=== PATIENT | male | born 1960 | race Caucasian/White ===

== ENCOUNTER 2016-05-25 18:28 | Inpatient (IN) | payer BC ==
[~2016-05-25] VITALS: Ht 188 cm; Wt 110.7 kg
[~2016-05-25 18:28] MED LIST: ACET650T12 PO; ALLO300T2 PO; ASPI1TAB PO; CIPR500T89 PO; FINA5TAB2 PO; FLAG500T PO; LISI10TA4 PO; LISI5TAB PO; MOM30SS PO; MYFO360T PO; PRED5TA PO; PRED5TAB PO; PROG1CAP2 PO; SENO8.6T10 PO; TACR05CAP PO; ULTR50TA PO; XANA0.25 PO; ZOFR20TA PO; ZYLO300T4 PO
[2016-05-25 19:13] LABS: BASO % 0.3 % (0.0-1.0); EOS # 0.2 K/mm3 (0.0-0.50); EOS % 2.4 % (0.0-3.0); LARGE UNSTAINED CELL # 0.3 K/mm3 (0.0-0.4); LARGE UNSTAINED CELL % 2.7 % (0.0-4.0); LYMPH # 3.3 K/mm3 (1.5-4.5); LYMPH % 32.6 % (24.0-44.0); MEAN CORPUSCULAR HEMOGLOBIN 31.7 pg (27.0-33.0); MEAN CORPUSCULAR HGB CONC 34.3 g/dl (32.0-36.5); MEAN CORPUSCULAR VOLUME 92.6 fl (80.0-96.0); MONO # 0.7 K/mm3 (0.0-0.8); MONO % 6.6 % (0.0-5.0); NEUTROPHILS # 5.6 K/mm3 (1.8-7.7); NEUTROPHILS % 55.5 % (36.0-66.0); PLATELET COUNT, AUTOMATED 199 k/mm3 (150-450); RED CELL DISTRIBUTION WIDTH 14.8 % (11.5-14.5)
--- NOTE | 2016-05-25 19:21 | REP ---
PORTABLE CHEST: 05/25/2016 at 06:48 PM: Clinical history: Chest pain. Comparison: 02/24/2011, 07/14/2010 chest x-ray. Findings. Lungs are well inflated. CP angles sharply defined. There is no effusion, infiltrate, atelectasis or mass. Heart not grossly enlarged for portable technique. There is no vascular redistribution or pulmonary edema. Some minor basilar fibrotic changes seen, but stable. No widening of the mediastinum. Airway intact. The aorta normal. Bones show some degenerative changes AC joints. Plate and screw fixation from previous anterior cervical fusion, stable. Impression: 1. No acute cardiopulmonary disease, stable chest. Signed by Morris Whittaker MD 05/25/2016 08:19 P
[2016-05-25 19:46] LABS: INR 0.99
[2016-05-25 19:48] LABS: ALBUMIN 4.1 GM/DL (3.2-5.2); ALBUMIN/GLOBULIN RATIO 1.24 (1.00-1.93); ALKALINE PHOSPHATASE 58 U/L (45-117); ALT/SGPT 29 U/L (12-78); AMYLASE 96 U/L (25-115); AST/SGOT 16 U/L (15-37); BILIRUBIN,DIRECT 0.1 MG/DL (0.0-0.2); BILIRUBIN,TOTAL 0.5 MG/DL (0.2-1.0); BLOOD UREA NITROGEN 59 MG/DL (7-18); CREATININE FOR GFR 1.77 MG/DL (0.70-1.30); GLOMERULAR FILTRATION RATE 42.9 (>56); GLUCOSE, FASTING 109 MG/DL (70-105); TOTAL PROTEIN 7.4 GM/DL (6.4-8.2)
[2016-05-25 19:59] LABS: ANION GAP 8 MEQ/L (8-16); CALCIUM LEVEL 9.6 MG/DL (8.5-10.1); CARBON DIOXIDE LEVEL 18 MEQ/L (21-32); CHLORIDE LEVEL 109 MEQ/L (98-107); SODIUM LEVEL 135 MEQ/L (136-145)
[2016-05-25 20:00] LABS: POTASSIUM SERUM 6.2 MEQ/L (3.5-5.1)
[2016-05-25 20:04] LABS: VENOUS BASE EXCESS -9.1 (-2.0-2.0); VENOUS O2 SATURATION 99.8 % (60.0-80.0); VENOUS PARTIAL PRESSURE CO2 30.9 mmHg (38.0-50.0); VENOUS PARTIAL PRESSURE O2 254.1 mmHg (30.0-50.0); VENOUS STANDARD HCO3 17.4 MEQ/L; VENOUS TOTAL CO2 16.6 MEQ/L (24.0-28.0)
--- NOTE | 2016-05-25 21:31 | ECGEPIP ---
Stationary ECG Study [facility] - ED Test Date: 2016-05-25 Pat Name: JADA LORENZANA Department: Room: - Gender: M [employer]: damon : 1960 Requested By: Kristy Mccarty Order Number: [id number] Reading MD: Maury Jeong Measurements Intervals [place] Rate: 91 P: 51 PA: 204 QRS: -10 QRSD: 128 T: 61 QT: 338 QTc: 417 Interpretive Statements SINUS RHYTHM WITH 1ST DEGREE AV BLOCK INC. LBBB Electronically Signed On 05-25-2016 21:30:36 EST by Maury Jeong
[2016-05-25] MEDS ORDERED: SOD POLYSTYRENE SULFONATE SUSP 15 GM/60 ML UD As Ordered ONE (21:53)
--- NOTE | 2016-05-25 23:00 | REPUSA ---
CT of the abdomen and pelvis without contrast Clinical statement: acute renal failure. Technique: Multiple axial CT images were obtained from the base of the lungs to the floor of the pelv is utilizing 5 mm axial slices after administration of oral contrast. Coronal and sagittal reconstruc tions were also obtained. Comparison: 04/20/2016. Findings: Chest: The visualized lung bases are clear. Abdomen: The kidneys are absent bilaterally. Surgical clips are seen throughout the retroperitoneum a nd appear stable. The liver, spleen, pancreas, gallbladder and adrenal glands are unremarkable. The a nagi demonstrates normal caliber and contour. There is no abdominal lymphadenopathy or ascites. Pelvis: The transplant kidney in the right lower quadrant appears unremarkable. There is no evidence of hydronephrosis or nephrolithiasis. A right-sided ostomy is noted, with herniating loops of bowel. There is no evidence of incarceration. The bowel is otherwise unremarkable, with no obstructive or in flammatory changes. The urinary bladder is within normal limits. There is no pelvic lymphadenopathy o r ascites. The other pelvic structures appear unremarkable. Bones: There are no suspicious osseous abnormalities seen. Impression: 1. The transplant kidney in the right lower quadrant appears unremarkable. 2. No obstructive or inflammatory bowel changes. 3. Overall, no significant interval change.
[2016-05-26] MEDS ORDERED: TACROLIMUS 1 MG CAP (J7507) PO ONE (01:45)
[2016-05-26] MEDS ORDERED: MYCOPHENOLATE MOFETIL 250 MG CAP (J7517) PO ONE (02:00)
[2016-05-26] MEDS: NS 1,000 ML IV SCH ×3 (02:53→10:53)
[2016-05-26] MEDS ORDERED: ONDANSETRON 4MG/2ML VIAL (J2405) IV PRN (03:00)
[2016-05-26] MEDS ORDERED: ACETAMINOPHEN TAB 650MG DOSE (2X325MG) PO PRN (03:00)
[2016-05-26] MEDS ORDERED: methylPREDNISolone INJ 125 MG/2 ML VIAL (J2930) IV SCH (04:00)
[2016-05-26 04:33] LABS: BASO % 0.3 % (0.0-1.0); EOS # 0.3 K/mm3 (0.0-0.50); EOS % 3.9 % (0.0-3.0); LARGE UNSTAINED CELL # 0.2 K/mm3 (0.0-0.4); LARGE UNSTAINED CELL % 2.7 % (0.0-4.0); LYMPH # 2.5 K/mm3 (1.5-4.5); MEAN CORPUSCULAR HEMOGLOBIN 32.3 pg (27.0-33.0); MEAN CORPUSCULAR HGB CONC 34.8 g/dl (32.0-36.5); MEAN CORPUSCULAR VOLUME 92.7 fl (80.0-96.0); MONO # 0.6 K/mm3 (0.0-0.8); NEUTROPHILS # 3.4 K/mm3 (1.8-7.7); NEUTROPHILS % 49.2 % (36.0-66.0); PLATELET COUNT, AUTOMATED 135 k/mm3 (150-450); RED CELL DISTRIBUTION WIDTH 14.9 % (11.5-14.5); WHITE BLOOD COUNT 6.9 K/mm3 (4.0-10.0)
[2016-05-26 05:06] LABS: ALBUMIN 3.3 GM/DL (3.2-5.2); CALCIUM LEVEL 8.5 MG/DL (8.5-10.1); CREATININE FOR GFR 1.42 MG/DL (0.70-1.30); GLOMERULAR FILTRATION RATE 55.3 (>56); MAGNESIUM LEVEL 1.8 MG/DL (1.8-2.4)
[2016-05-26 05:10] LABS: POTASSIUM SERUM 5.3 MEQ/L (3.5-5.1)
[2016-05-26] MEDS: methylPREDNISolone INJ 125 MG/2 ML VIAL (J2930) IV SCH ×2 (06:00→16:54)
[2016-05-26] MEDS ORDERED: methylPREDNISolone INJ 40 MG/1 ML VIAL (J2920) As Ordered ONE (06:25)
--- NOTE | 2016-05-26 07:26 | HPE ---
DATE OF ADMISSION: 05/26/2016 Mr. Herrera is a patient of Dr. Mortensen. His acrobatic dancer is at [facility], as well as, his general surgeon. CHIEF COMPLAINT: "My arms have been aching and I have chest pressure". SUMMARY OF PRESENTATION: This is a 55-year-old who has been feeling unwell for a couple of weeks. He has not been sleeping very well. He has been very thirsty. He has lots of output from his ostomy bag and he did have the ostomy placed 02/18/2016 which was a planned procedure due to his recurrent diverticulitis. He has planned to have that reversed within the next week. He had a prolonged hospitalization at that point with a creatinine that got as high as 1.8. He was hospitalized again for five weeks. Over the last few weeks, he has been drinking at least a gallon of water a day. He has been having high ostomy output. Initially was having equivalent urine output and ostomy output, but since his ostomy output has certainly outpaced his urine output. He began to get cramping and aching in his arms and he thought it might be related to elevated potassium and he developed chest discomfort that was radiating to both arms today. He came to the emergency department for evaluation and was found to have acute renal failure in the setting of transplanted kidney and elevated potassium. Transfer was attempted to the transplant center, but he was declined as they had no beds and it seems that his findings are related to increased ostomy output most likely. I was asked to admit the patient for IV hydration and further workup. PAST MEDICAL HISTORY (Notable for): 1. Polycystic kidney disease status post renal transplant in 2006, currently on steroids, Prograf and mycophenolate. 2. History of diverticulitis. 3. Hypertension. 4. Gout. PAST SURGICAL HISTORY (Notable for): 1. Ear tubes. 2. Right hip pinning for slipped capital femoral epiphysis as a teenager. 3. AV fistulas in both arms and has a stent in his left arm fistula. 4. Kidney transplant for polycystic kidney disease. FAMILY HISTORY: Notable for a father with polycystic kidney disease. 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 He lives with his significant other. Nonsmoker. Does not drink alcohol. ALLERGIES (Listed to): - RABBIT EPITHELIUM - SULFA DRUGS MEDICATIONS AT HOME (Listed as): - allopurinol 300 mg by mouth daily - lisinopril 10 mg by mouth daily - aspirin 81 mg by mouth three times weekly - finasteride 5 mg by mouth daily - mycophenolate sodium 360 mg by mouth twice a day - prednisone 5 mg by mouth daily - Tacrolimus 1 mg capsule 3 mg by mouth twice a day REVIEW OF SYSTEMS: Notable for no headache. No visual changes. No runny nose. No neck pain. No cough. No shortness of breath. He is not having abdominal pain, but he is having large quantities of ostomy output. He has no change in urinary output apart from decreasing volume. Otherwise unremarkable. PHYSICAL EXAMINATION: Blood pressure 102/48. Pulse 98. Respiratory rate 18. Temperature 96.7. Pulse oximetry 99% on room air. Weighs 102.97 kg. Body mass index of 29. He is awake, appropriately interactive, seems anxious. Head is normocephalic. Sinuses nontender. Pupils equal round and reactive. He is wearing corrective lenses. Nasal septum is midline. Mucous membranes are tacky. Neck is supple. Breathing is symmetrical, rested. I:E ratio is 1:3. Heart is in a regular rate and rhythm. No tachycardic. Normal S1, S2. Abdomen is soft with hyperactive bowel sounds. There is a right sided colostomy bag filled with greenish liquid. There is a huge surgical scar across both lower quadrants of the abdomen which is well healed. There is no significant lower extremity edema. He is moving all four extremities. Cranial nerves II-XII are grossly intact. He has normal mood and affect. Sodium is 135, potassium 6.2, chloride 109, carbon dioxide 18, BUN 59, creatinine 1.77, glucose 109. Troponin I less than 0.02. Lipase 501. White cell count 10, hemoglobin 14, and platelets 199. INR is 0.99. He has pH 7.32, pCO2 31, pO2 254, bicarb 15.6. Urinalysis (UA) is remarkably unremarkable. Urine culture is pending. Abdominal and pelvic CT is notable for unremarkable transplant kidney in the right lower quadrant. No obstructive or inflammatory bowel changes. No significant interval change. Chest x-ray shows no acute process. ASSESSMENT: This is a 55-year-old with high output ostomy resulting in acute renal failure in the setting of a transplant kidney. The patient will require a two midnight hospital stay for further workup and treatment. PLAN: 1. Acute renal failure. The patient will be continued on his transplant rejection drugs. He will be aggressively fluid hydrated. Given that he has had low blood pressures, will be given increased steroids in the current setting. Dr. Booth will be consulted this morning as deemed clinically necessary by the family medicine team. Will withhold his lisinopril and allopurinol in the current setting. I have elected to continue aspirin. 2. The patient has high output ostomy and does not drink well water and has not been out to eat recently and has no recent history of travel. Will send stool studies on the ostomy output and then would consider Imodium or similar. He has not taken any medication like that to decrease his ostomy output. 3. The patient has a transplant kidney. He will be continued on mycophenolate. We do not carry his home brand of mycophenolate. He will have someone bring that in. Currently we are giving mycophenolate mofetil instead of sodium while we await his home medication. Will continue his Prograf and again give him bonus steroids. 4. Deep vein thrombosis (DVT) prophylaxis will be heparin subcutaneous. 5. The patient has an abnormal EKG which has peaked T waves when compared to previous, likely related to his hyperkalemia. Will repeat labs and continue the patient on telemetry. This should likely improve with improving hydration and urinary output. I am hesitant to give the patient Kayexalate to worsen his GI output.
[2016-05-26 08:18] VITALS: BP 131/62
[2016-05-26] MEDS ORDERED: HEPARIN SOD (PORCINE) 5000 UNITS/ML VIAL As Ordered ONE (08:48)
[2016-05-26] MEDS: FINASTERIDE 5 MG TAB PO SCH (08:55)
[2016-05-26] MEDS: TACROLIMUS 1 MG CAP (J7507) PO SCH ×2 (08:55→20:46)
[2016-05-26] MEDS: HEPARIN SOD (PORCINE) 5000 UNITS/ML VIAL SC SCH ×2 (08:56→20:47)
[2016-05-26] MEDS ORDERED: ASPIRIN 81 MG ENTERIC TAB PO SCH (09:00)
[2016-05-26] MEDS ORDERED: MYCOPHENOLATE MOFETIL 250 MG CAP (J7517) PO SCH (09:00)
[2016-05-26] MEDS ORDERED: MIRALAX *UNIT DOSE* 17GM PACKET PO SCH (09:00)
[2016-05-26 12:00] VITALS: BP 153/77
--- NOTE | 2016-05-26 12:34 | EDDOCDS ---
Nurse's Notes [facility] Name: Jada Lorenzana Age: 55 yrs Sex: Male : 1960 Arrival Date: 05/25/2016 Time: 18:28 Bed Admit Hold Private MD: Pepe Mortensen MD Diagnosis: Acute kidney failure;Kidney transplant status Presentation: 05/25 18:35 Presenting complaint: Patient states: Chest pain began two hours ago radiating to mlb1 bilateral arms. Aspirin was not taken prior to arrival. Adult Sepsis Screening: The patient does not have new or worsening altered mentation. Patient's respiratory rate is less than 22. Systolic blood pressure is greater than 100. Patient has a qSOFA score of 0- Negative Sepsis Screen. Suicide/Homicide risk assessment- the patient denies having any suicidal and/or homicidal ideations and does not present with any other emotional, behavioral or mental health complaints. 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 Transition of care: patient was not received from another setting of care. 18:35 Acuity: LEVON Level 2 mlb1 18:35 Method Of Arrival: Walkin/Carried/Asstd mlb1 Triage Assessment: 18:39 General: Appears in no apparent distress, Behavior is appropriate for age, cooperative. mlb1 Pain: Location: mid-sternal area Pain At worst was 5 out of 10 on a pain scale. Pain radiates to right arm and left arm. HIV screening NA for this visit Offered previously. Respiratory: No deficits noted. 05/26 05:01 Cardiovascular: Chest pain is described as vague, radiates episodes are intermittent cf2 began 30 minutes prior to arrival Historical: - Allergies: SULFA (SULFONAMIDES) (Hives); - Home Meds: 1. allopurinol 300 mg Oral tab once daily 2. aspirin 81 mg Oral chew 1 tab mon, wed,fri 3. finasteride 5 mg oral tab 1 tab once daily 4. lisinopril 10 mg Oral tab 1 tab once daily 5. Myfortic 360 mg oral TbEC 2 times per day 6. prednisone 5 mg Oral tab 1 tab once daily 7. Prograf 1 mg oral cap 3 cap daily 8. Zofran (as hydrochloride) 4 mg Oral tab - PMHx: Polycystic Kidney Disease; Renal Failure w/o Dialysis; Diverticulitis; - PSHx: Kidney Transplant- Right; Colostomy Construction; - Social history: Smoking status: Patient states was never smoker of tobacco. No barriers to communication noted, The patient speaks fluent Chinese, Speaks appropriately for age. - Family history: Not pertinent. - : The pt / caregiver states he / she is not on anticoagulants. Home medication list is obtained from the patient. - Exposure Risk Screening:: None identified. Screenin/19 19:01 Screening information is obtained from the patient. Fall risk: No risks identified. cf2 Assistance ADL's: requires no assistance with activities of daily living. Abuse/DV Screen: The patient / caregiver reports he/she is: not in a situation that causes fear, pain or injury. Nutritional screening: No deficits noted. Advance Directives: Further advance directive information is declined. home support is adequate. Assessment: 19:01 Adult Sepsis Screening: The patient does not have new or worsening altered mentation. cf2 Patient's respiratory rate is less than 22. Systolic blood pressure is greater than 100. Patient has a qSOFA score of 0- Negative Sepsis Screen. General: Appears in no apparent distress, comfortable, Behavior is appropriate for age, cooperative. Pain: Denies pain. Neurological: No deficits noted. EENT: No deficits noted. Cardiovascular: Rhythm is sinus rhythm No ectopy. Respiratory: No deficits noted. GI: No deficits noted. Abdomen is flat, non- distended colostomy. : No deficits noted. Derm: No deficits noted. Musculoskeletal: No deficits noted. 19:07 Reassessment: Patient denies pain at this time. cf2 21:00 Reassessment: Patient denies pain at this time. cf2 23:00 General: Patient resting comfortably. Offers no complaints at present time. MD spoke cf2 with patient in regards to decreased kidney function. Patient with significant other crying, Patient requests that transplant team be called and made aware of condition. MD agrees to call transplant team.. 05/26 01:00 General: Patient resting comfortably offers no complaints at present time . cf2 03:00 General: Patient with hospitalist. [place] with no beds at present time. Offers no cf2 complaints. Eating dinner tray. 05:05 General: Unable to get bed assignment. Patient moved to room 17 and made comfortable. cf2 Offers no complaints at present time . 07:19 General: Appears in no apparent distress, comfortable, Behavior is appropriate for age, pml cooperative. Pain: Denies pain. Neurological: Level of Consciousness is awake, alert, Oriented to person, place, time. Cardiovascular: Capillary refill < 3 seconds Rhythm is sinus rhythm No ectopy. Respiratory: Airway is patent Respiratory effort is even, unlabored, Respiratory pattern is regular, symmetrical. Derm: Skin is pink, warm & dry. Vital Signs: 05/25 18:30 BP 102 / 48; Pulse 98; Resp 18 S; Temp 96.7(O); Pulse Ox 99% on R/A; Weight 102.97 kg gr2 (R); Height 6 ft. 2 in. (187.96 cm) (R); Pain 6/10; 19:07 Pulse 86 MON; Pulse Ox 98% ; cf2 19:07 BP 91 / 52 (auto/); cf2 19:07 Temp 98.0; Pain 0/10; cf2 19:15 Pulse 91 MON; Pulse Ox 98% ; cf2 19:15 BP 84 / 49 (auto/); cf2 19:26 Pulse 84 MON; Pulse Ox 99% ; cf2 19:26 BP 95 / 48 (auto/); cf2 19:30 Pulse 84 MON; Pulse Ox 99% ; cf2 19:30 BP 90 / 53 (auto/); cf2 19:45 Pulse 88 MON; Pulse Ox 99% ; cf2 19:45 BP 116 / 56 (auto/); cf2 20:00 Pulse 85 MON; Pulse Ox 99% ; cf2 20:00 BP 116 / 54 (auto/); cf2 20:15 Pulse 83 MON; Pulse Ox 97% ; cf2 20:15 BP 117 / 57 (auto/); cf2 20:30 Pulse 80 MON; Pulse Ox 99% ; cf2 20:30 BP 121 / 58 (auto/); cf2 20:45 Pulse 84 MON; Pulse Ox 98% ; cf2 20:45 BP 114 / 56 (auto/); cf2 21:00 Pulse 85 MON; Pulse Ox 98% ; cf2 21:00 BP 207 / 91 (auto/); cf2 21:15 Pulse 87 MON; Pulse Ox 98% ; cf2 21:15 BP 140 / 62 (auto/); cf2 21:30 Pulse 92 MON; Pulse Ox 98% ; cf2 21:30 BP 196 / 112 (auto/); cf2 21:45 Pulse 89 MON; Pulse Ox 96% ; cf2 21:45 BP 148 / 64 (auto/); cf2 22:00 Pulse 91 MON; Pulse Ox 98% ; cf2 22:00 BP 102 / 58 (auto/); cf2 22:15 Pulse 83 MON; Pulse Ox 98% ; cf2 22:15 BP 103 / 55 (auto/); cf2 22:38 Pulse 88 MON; Pulse Ox 98% ; cf2 22:38 BP 127 / 60 (auto/); cf2 22:39 Pulse 86 MON; Pulse Ox 98% ; cf2 22:39 BP 115 / 55 (auto/); cf2 22:45 Pulse 85 MON; Pulse Ox 98% ; cf2 22:45 BP 112 / 57 (auto/); cf2 23:39 Pulse 88 MON; Pulse Ox 98% ; cf2 23:39 BP 121 / 56 (auto/); cf2 05/26 00:03 Pulse 91 MON; cf2 00:03 BP 138 / 61 (auto/); cf2 00:04 Pulse 87 MON; Pulse Ox 99% ; cf2 00:26 Pulse 87 MON; Pulse Ox 98% ; cf2 00:30 Pulse 88 MON; cf2 00:30 BP 129 / 78 (auto/); cf2 01:00 Pulse 88 MON; cf2 01:00 BP 135 / 63 (auto/); cf2 01:30 Pulse 90 MON; Pulse Ox 99% ; cf2 01:30 BP 145 / 67 (auto/); cf2 02:00 Pulse 91 MON; cf2 02:00 BP 127 / 57 (auto/); cf2 02:30 Pulse 90 MON; cf2 02:30 BP 111 / 53 (auto/); cf2 03:00 Pulse 97 MON; cf2 03:00 BP 197 / 102 (auto/); cf2 04:00 Pulse 88 MON; cf2 04:00 BP 113 / 54 (auto/); cf2 05:20 Pulse 84 MON; Pulse Ox 98% ; cf2 07:18 Pulse 90 MON; Pulse Ox 98% ; pml 07:18 BP 135 / 72 (auto/); pml 05/25 18:30 Body Mass Index 29.14 (102.97 kg, 187.96 cm) gr2 Vitals: 05/25 18:30 Log In Time: May 25, 2016 at 18:30. gr2 18:32 RN notified that patient meets Red Flag criteria. gr2 ED Course: 18:30 Patient visited by Laith Posadas. gr2 18:30 Pepe Mortensen is Private Physician. gr2 18:30 Patient moved to Waiting gr2 18:31 Patient visited by Laith Posadas. gr2 18:32 Patient visited by Laith Posadas. gr2 18:32 Patient moved to Pre RCE gr2 18:32 Patient moved to PD2 / 27 ead 18:34 Anne Posadas, RN is Primary Nurse. gr2 18:34 Patient moved to 2 gr2 18:36 Triage Initiated mlb1 19:01 Basic Metabolic Profile Sent. kc3 19:01 CBC with Diff Sent. kc3 19:01 Cardiac Injury Profile Sent. kc3 19:01 Troponin Sent. kc3 19:01 EKG done. (by ED staff). Reviewed by Whitney ROOT. jrd 19:01 Inserted saline lock: 18 gauge in right antecubital area and blood collected. No cf2 procedures done that require assistance. 19:02 Patient visited by Coy Rosales PCA. jrd 19:03 Felton Franklin DO is Attending Physician. mm11 19:03 Patient visited by Felton Franklin DO. mm11 19:17 Primary Nurse role handed off by Anne Posadas, SARAH cf2 19:17 Tiffanie Jurado,SARAH is Primary Nurse. cf2 19:17 Patient visited by Tiffanie Jurado,SARAH. cf2 19:30 Venous Blood Gas (large pea green tube on ice) Sent. cf2 19:30 Lactic Acid (Jim tube on ice) Sent. cf2 19:32 Patient visited by Felton Franklin DO. mm11 20:02 The patient / caregiver is instructed regarding the plan of care and ED course. Patient sls1 has correct armband on for positive identification. Placed in gown. Bed in low position. Call light in reach. Side rails up X2. core sticker on. Pulse ox on. NIBP on. Notified attending ED physician of Critical lab value. 20:05 portable chest Returned. EDMS 20:28 Patient visited by Tiffanie Jurado,SARAH. cf2 20:31 Patient visited by Tiffanie Jurado RN. cf2 21:04 portable chest Returned. EDMS 21:17 Patient visited by Tiffanie Jurado RN. cf2 21:17 Patient visited by Tiffanie Jurado RN. cf2 21:40 Patient visited by Tiffanie Jurado RN. cf2 21:59 EKG-ADULT Returned. EDMS 22:09 Patient visited by Tiffanie Jurado RN. cf2 22:34 Patient visited by Tiffanie Jurado RN. cf2 23:06 CT ABD & PELVIS: No Contrast Returned. EDMS 23:10 Patient visited by Barbra Shah,RT. dk 05/26 00:04 Patient visited by Tiffanie Jurado RN. cf2 00:48 [facility] Payment Agreement was scanned into milog and attached to record. [facility] 01:01 Naseem Baker MD is Hospitalizing Provider. mm11 02:53 Patient visited by Tiffanie Jurado RN. cf2 02:53 Written Provider Order was scanned into milog and attached to record. tmm1 04:03 Patient moved to Admit Hold tmm1 04:26 Patient visited by Tiffanie Jurado RN. cf2 04:45 Patient moved to 17 sls1 04:45 Patient moved to Admit Hold sls1 04:56 Patient visited by Tiffanie Jurado RN. cf2 05:23 Patient visited by Tiffanie Jurado RN. cf2 07:20 Patient visited by Anne Flynn RN. pml 07:22 EKG done. (by ED staff). jrd 07:29 Patient visited by Coy Rosales PCA. jrd 07:43 Patient visited by Coy Rosales PCA. jrd 07:58 Patient moved to 20 rn1 08:59 Patient moved to Admit Hold dy 09:15 T-Sheet-- Draft Copy was scanned into milog and attached to record. gb Administered Medications: 05/25 19:30 Drug: LR 1000 ml [lactated ringers intravenous solution] Route: IV; Rate: bolus; Site: cf2 left antecubital; 20:10 Drug: NS 0.9% 1000 ml [sodium chloride 0.9 % intravenous solution] Route: IV; Rate: cf2 bolus; Site: left antecubital; 21:45 Drug: NS 0.9% 1000 ml [sodium chloride 0.9 % intravenous solution] Route: IV; Rate: cf2 bolus; Site: left antecubital; 21:45 Drug: Polystyrene 15 grams [sodium polystyrene sulfonate 15 gram/60 mL oral suspension cf2 (1200 drps)] Route: PO; 23:41 Drug: NS 0.9% 1000 ml [sodium chloride 0.9 % intravenous solution] Route: IV; Rate: sls1 bolus; Site: left antecubital; 05/26 02:53 Drug: Prograf 3 mg Route: PO; cf2 02:53 Drug: Myfortic Delayed Release Tablet 360 mg Route: PO; cf2 02:54 Drug: NS 0.9% 1000 ml [sodium chloride 0.9 % intravenous solution] Route: IV; Rate: 250 cf2 mL/hr; Site: left antecubital; Intake: 07:27 From [facility] Output: 00:17 Urine: 400.00ml (Voided); Stool: 300 (Loose Stool) ; Total: 400.00ml. sls1 07:27 Urine: 420.00ml (Voided); Stool: 420.00ml (Loose Stool); Total: 1240.00ml. jrd 07:27 From [facility] rust Order Results: Lab Order: Basic Metabolic Profile; SPEC'M 05/25/16 18:57 Test: GLUCOSE, FASTING; Value: 109; Range: 70-105; Abnormal: Above high normal; Units: MG/DL; Status: F Test: BLOOD UREA NITROGEN; Value: 59; Range: 7-18; Abnormal: Above high normal; Units: MG/DL; Status: F Test: CREATININE FOR GFR; Value: 1.77; Range: 0.70-1.30; Abnormal: Above high normal; Units: MG/DL; Status: F Test: GLOMERULAR FILTRATION RATE; Value: 42.9; Range: >56; Abnormal: Below low normal; Status: F Test: SODIUM LEVEL; Value: 135; Range: 136-145; Abnormal: Below low normal; Units: MEQ/L; Status: F Test: POTASSIUM SERUM; Value: 6.2; Range: 3.5-5.1; Abnormal: Above upper panic limits; Units: MEQ/L; Status: F Test: CHLORIDE LEVEL; Value: 109; Range: 98-107; Abnormal: Above high normal; Units: MEQ/L; Status: F Test: CARBON DIOXIDE LEVEL; Value: 18; Range: 21-32; Abnormal: Below low normal; Units: MEQ/L; Status: F Test: ANION GAP; Value: 8; Range: 8-16; Units: MEQ/L; Status: F Test: CALCIUM LEVEL; Value: 9.6; Range: 8.5-10.1; Units: MG/DL; Status: F Test Note: ; Units are mL/min/1.73 m2 Chronic Kidney Disease Staging per NKF: Stage I & II GFR >=60 Normal to Mildly Decreased Stage III GFR 30-59 Moderately Decreased Stage IV GFR 15-29 Severely Decreased Stage V GFR <15 Very Little GFR Left ESRD GFR <15 on LOGISTICS LEAD Lab Order: CBC with Diff; SPEC'M 05/25/16 18:57 Test: WHITE BLOOD COUNT; Value: 10.0; Range: 4.0-10.0; Units: K/mm3; Status: F Test: RED BLOOD COUNT; Value: 4.43; Range: 4.30-6.10; Units: M/mm3; Status: F Test: HEMOGLOBIN; Value: 14.0; Range: 14.0-18.0; Units: g/dl; Status: F Test: HEMATOCRIT; Value: 41.0; Range: 42.0-52.0; Abnormal: Below low normal; Units: %; Status: F Test: MEAN CORPUSCULAR VOLUME; Value: 92.6; Range: 80.0-96.0; Units: fl; Status: F Test: MEAN CORPUSCULAR HEMOGLOBIN; Value: 31.7; Range: 27.0-33.0; Units: pg; Status: F Test: MEAN CORPUSCULAR HGB CONC; Value: 34.3; Range: 32.0-36.5; Units: g/dl; Status: F Test: RED CELL DISTRIBUTION WIDTH; Value: 14.8; Range: 11.5-14.5; Abnormal: Above high normal; Units: %; Status: F Test: PLATELET COUNT, AUTOMATED; Value: 199; Range: 150-450; Units: k/mm3; Status: F Test: NEUTROPHILS %; Value: 55.5; Range: 36.0-66.0; Units: %; Status: F Test: LYMPH %; Value: 32.6; Range: 24.0-44.0; Units: %; Status: F Test: MONO %; Value: 6.6; Range: 0.0-5.0; Abnormal: Above high normal; Units: %; Status: F Test: EOS %; Value: 2.4; Range: 0.0-3.0; Units: %; Status: F Test: BASO %; Value: 0.3; Range: 0.0-1.0; Units: %; Status: F Test: LARGE UNSTAINED CELL %; Value: 2.7; Range: 0.0-4.0; Units: %; Status: F Test: NEUTROPHILS #; Value: 5.6; Range: 1.8-7.7; Units: K/mm3; Status: F Test: LYMPH #; Value: 3.3; Range: 1.5-4.5; Units: K/mm3; Status: F Test: MONO #; Value: 0.7; Range: 0.0-0.8; Units: K/mm3; Status: F Test: EOS #; Value: 0.2; Range: 0.0-0.50; Units: K/mm3; Status: F Test: BASO #; Value: 0.0; Range: 0.0-0.2; Units: K/mm3; Status: F Test: LARGE UNSTAINED CELL #; Value: 0.3; Range: 0.0-0.4; Units: K/mm3; Status: F Lab Order: Cardiac Injury Profile; SPEC'M 05/25/16 18:57 Test: CPK CREATINE PHOSPHOKINASE; Value: 62; Range: 39-308; Units: U/L; Status: F Test: CK-MB VALUE MASS; Value: 3.0; Range: 0.0-3.6; Units: NG/ML; Status: F Test: MB/CK RELATIVE INDEX; Value: 4.83; Range: < OR =4; Abnormal: Above high normal; Status: F Test Note: ; DIAGNOSIS CRITERIA MMB ng/ml Relative Index (RI) NON-AMI < or = 5 N/A JIM ZONE > 5 < or = 4 AMI > 5 > 4 Lab Order: Troponin; [facility]' 05/25/16 18:57 Test: TROPONIN I; Value: < 0.02; Range: < 0.10; Units: NG/ML; Status: F Test Note: ; Troponin I Reference Interval for [employer] LOCI: 99th Percentile= 0.00-0.045 ng/ml Risk Stratification: <= 0.10 ng/ml Decreased Risk for Adverse Clinical Events. 0.10-1.50 ng/ml Increased Risk for Adverse Clinical Events. Evaluation of additional criterion and/or repeat testing in 2-6 hours is suggested to rule out myocardial damage. >= 1.50 ng/ml Indicative of Myocardial Injury. Lab Order: Partial Thromboplastin Time; [facility]' 05/25/16 19:24 Test: PARTIAL THROMBOPLASTIN TIME; Value: 34.4; Range: 26.6-37.1; Units: SECONDS; Status: F Lab Order: Prothrombin Time Profile\E\INR; [facility] 05/25/16 19:24 Test: PROTHROMBIN TIME; Value: 13.2; Range: 12.3-14.5; Units: SECONDS; Status: F Test: INR; Value: 0.99; Status: F Test Note: ; THERAPUTIC HUMAN INR VALUES INDICATIONS NORMAL RANGES PROPHYLAXIS/TREATMENT OF: VENOUS THROMBOSIS 2.0-3.0 PULMONARY EMBOLISM 2.0-3.0 PREVENTION OF SYSTEMIC EMBOLISM FROM: TISSUE HEART VALVES 2.0-3.0 ACUTE MYOCARDIAL INFARCTION 2.0-3.0 VALVULAR HEART DISEASE 2.0-3.0 ATRIAL FIBRILLATION 2.0-3.0 MECHANICAL VALVES(HIGH RISK) 2.5-3.5 RECURRENT MYOCARDIAL INFARCTION 2.5-3.5 Lab Order: Urinalysis; [facility]' 05/25/16 19:25 Test: APPEARANCE, URINE; Value: CLEAR; Range: CLEAR; Status: F Test: COLOR, URINE; Value: STRAW; Range: YELLOW; Status: F Test: PH,URINE; Value: 5.0; Range: 5.0-9.0; Units: UNITS; Status: F Test: SPECIFIC GRAVITY URINE AUTO; Value: 1.005; Range: 1.002-1.035; Status: F Test: PROTEIN, URINE AUTO; Value: NEGATIVE; Range: NEGATIVE; Units: mg/dL; Status: F Test: GLUCOSE, URINE (UA) AUTO; Value: NEGATIVE; Range: NEGATIVE; Units: mg/dL; Status: F Test: KETONE, URINE AUTO; Value: NEGATIVE; Range: NEGATIVE; Units: mg/dL; Status: F Test: UROBILINOGEN, URINE AUTO; Value: 0.2; Range: 0.0-2.0; Units: mg/dL; Status: F Test: BILIRUBIN, URINE AUTO; Value: NEGATIVE; Range: NEGATIVE; Status: F Test: NITRITE, URINE AUTO; Value: NEGATIVE; Range: NEGATIVE; Status: F Test: LEUKOCYTE ESTERASE, URINE AUTO; Value: NEGATIVE; Range: NEGATIVE; Status: F Test: BLOOD, URINE BLOOD; Value: NEGATIVE; Range: NEGATIVE; Status: F Test: WBC, URINE AUTO; Value: 1; Range: 0-3; Units: /HPF; Status: F Test: RBC, URINE AUTO; Value: 2; Range: 0-3; Units: /HPF; Status: F Test: BACTERIA, URINE AUTO; Value: NEGATIVE; Range: NEGATIVE; Status: F Test: SQUAMOUS EPITHELIAL CELL UR AU; Value: 0; Range: 0-6; Units: /HPF; Status: F Test: MUCUS, URINE; Value: SMALL; Range: NEGATIVE; Status: F Test: HYALINE CAST, URINE AUTO; Value: 3; Range: 0-1; Units: /LPF; Status: F Lab Order: Lactic Acid (Jim tube on ice); SPEC'M 05/25/16 19:25 Test: LACTIC ACID LEVEL, LACTATE; Value: 0.4; Range: 0.4-2.0; Units: MMOL/L; Status: F Lab Order: Venous Blood Gas (large pea green tube on ice); SPEC'M 05/25/16 19:25 Test: VENOUS PH; Value: 7.322; Range: 7.330-7.430; Abnormal: Below low normal; Units: UNITS; Status: F Test: VENOUS PARTIAL PRESSURE CO2; Value: 30.9; Range: 38.0-50.0; Abnormal: Below low normal; Units: mmHg; Status: F Test: VENOUS PARTIAL PRESSURE O2; Value: 254.1; Range: 30.0-50.0; Abnormal: Above high normal; Units: mmHg; Status: F Test: VENOUS TOTAL CO2; Value: 16.6; Range: 24.0-28.0; Abnormal: Below low normal; Units: MEQ/L; Status: F Test: VENOUS HCO3; Value: 15.6; Range: 23.0-27.0; Abnormal: Below low normal; Units: MEQ/L; Status: F Test: VENOUS BASE EXCESS; Value: -9.1; Range: -2.0-2.0; Abnormal: Below low normal; Status: F Test: VENOUS STANDARD HCO3; Value: 17.4; Units: MEQ/L; Status: F Test: VENOUS O2 SATURATION; Value: 99.8; Range: 60.0-80.0; Abnormal: Above high normal; Units: %; Status: F Lab Order: AMYLASE; SPEC' 05/25/16 18:57 Test: AMYLASE; Value: 96; Range: 25-115; Units: U/L; Status: F Lab Order: LIPASE; [facility]' 05/25/16 18:57 Test: LIPASE; Value: 501; Range: 73-393; Abnormal: Above high normal; Units: U/L; Status: F Lab Order: LIVER PROFILE; [facility]' 05/25/16 18:57 Test: AST/SGOT; Value: 16; Range: 15-37; Units: U/L; Status: F Test: ALT/SGPT; Value: 29; Range: 12-78; Units: U/L; Status: F Test: ALKALINE PHOSPHATASE; Value: 58; Range: 45-117; Units: U/L; Status: F Test: BILIRUBIN,TOTAL; Value: 0.5; Range: 0.2-1.0; Units: MG/DL; Status: F Test: BILIRUBIN,DIRECT; Value: 0.1; Range: 0.0-0.2; Units: MG/DL; Status: F Test: TOTAL PROTEIN; Value: 7.4; Range: 6.4-8.2; Units: GM/DL; Status: F Test: ALBUMIN; Value: 4.1; Range: 3.2-5.2; Units: GM/DL; Status: F Test: ALBUMIN/GLOBULIN RATIO; Value: 1.24; Range: 1.00-1.93; Status: F Lab Order: GASTROINTESTINAL (GI) PANEL; SPEC' 05/26/16 04:19 Test: GASTROINTESTINAL (GI) PANEL; Value: GI PANEL RESULT NEGATIVE by PCR; Status: F Test: GASTROINTESTINAL (GI) PANEL; Value: Comments:; Status: F Test Note: ; This Gastrointestinal PCR Panel detects the following bacteria, parasites and viruses: Campylobacter (jejuni, coli and upsaliensis), Clostridium difficile (toxin A/B), Plesiomonas shigelloides, Salmonella, Yersinia enterocolitica, Vibrio (parahaemolyticus, vulnificus and cholerae), Vibrio clolerae, Enteroaggregative E. coli (EAEC), Enteropathogenis E. coli (EPEC), Enterotoxigenic E. coli (ETEC) it/st, Shiga-like producing E. coli (STEC) stx1/stc2, E.coli O157, Shigella/Enteroinvasive E. coli (EIEC), Cryptosporidium, Cyclospora cayetanensis, Entamoeba histolytica, Giardia lamblia, Adenovirus F 40/41, Astrovirus, Norovirus GI/GII, Rotavirus A and Sapovirus (I, II, IV, V). Lab Order: RENAL PROFILE; SPEC'M 05/26/16 04:19 Test: GLUCOSE, FASTING; Value: 140; Range: 70-105; Abnormal: Above high normal; Units: MG/DL; Status: F Test: BLOOD UREA NITROGEN; Value: 51; Range: 7-18; Abnormal: Above high normal; Units: MG/DL; Status: F Test: CREATININE FOR GFR; Value: 1.42; Range: 0.70-1.30; Abnormal: Above high normal; Units: MG/DL; Status: F Test: GLOMERULAR FILTRATION RATE; Value: 55.3; Range: >56; Abnormal: Below low normal; Status: F Test: SODIUM LEVEL; Value: 143; Range: 136-145; Abnormal: Delta; Units: MEQ/L; Status: F Test: POTASSIUM SERUM; Value: 5.3; Range: 3.5-5.1; Abnormal: Above high normal; Units: MEQ/L; Status: F Test: CHLORIDE LEVEL; Value: 117; Range: 98-107; Abnormal: Above high normal; Units: MEQ/L; Status: F Test: CARBON DIOXIDE LEVEL; Value: 17; Range: 21-32; Abnormal: Below low normal; Units: MEQ/L; Status: F Test: ANION GAP; Value: 9; Range: 8-16; Units: MEQ/L; Status: F Test: CALCIUM LEVEL; Value: 8.5; Range: 8.5-10.1; Units: MG/DL; Status: F Test: PHOSPHORUS LEVEL; Value: 3.0; Range: 2.5-4.9; Units: MG/DL; Status: F Test: ALBUMIN; Value: 3.3; Range: 3.2-5.2; Units: GM/DL; Status: F Test Note: ; Units are mL/min/1.73 m2 Chronic Kidney Disease Staging per NKF: Stage I & II GFR >=60 Normal to Mildly Decreased Stage III GFR 30-59 Moderately Decreased Stage IV GFR 15-29 Severely Decreased Stage V GFR <15 Very Little GFR Left ESRD GFR <15 on LOGISTICS LEAD Lab Order: MAGNESIUM LEVEL; SPEC'M 05/26/16 04:19 Test: MAGNESIUM LEVEL; Value: 1.8; Range: 1.8-2.4; Units: MG/DL; Status: F Lab Order: CBC WITH DIFFERENTIAL; SPECM 05/26/16 04:19 Test: WHITE BLOOD COUNT; Value: 6.9; Range: 4.0-10.0; Units: K/mm3; Status: F Test: RED BLOOD COUNT; Value: 3.76; Range: 4.30-6.10; Abnormal: Below low normal; Units: M/mm3; Status: F Test: HEMOGLOBIN; Value: 12.2; Range: 14.0-18.0; Abnormal: Below low normal; Units: g/dl; Status: F Test: HEMATOCRIT; Value: 34.9; Range: 42.0-52.0; Abnormal: Below low normal; Units: %; Status: F Test: MEAN CORPUSCULAR VOLUME; Value: 92.7; Range: 80.0-96.0; Units: fl; Status: F Test: MEAN CORPUSCULAR HEMOGLOBIN; Value: 32.3; Range: 27.0-33.0; Units: pg; Status: F Test: MEAN CORPUSCULAR HGB CONC; Value: 34.8; Range: 32.0-36.5; Units: g/dl; Status: F Test: RED CELL DISTRIBUTION WIDTH; Value: 14.9; Range: 11.5-14.5; Abnormal: Above high normal; Units: %; Status: F Test: PLATELET COUNT, AUTOMATED; Value: 135; Range: 150-450; Abnormal: Below low normal; Units: k/mm3; Status: F Test: NEUTROPHILS %; Value: 49.2; Range: 36.0-66.0; Units: %; Status: F Test: LYMPH %; Value: 36.0; Range: 24.0-44.0; Units: %; Status: F Test: MONO %; Value: 8.0; Range: 0.0-5.0; Abnormal: Above high normal; Units: %; Status: F Test: EOS %; Value: 3.9; Range: 0.0-3.0; Abnormal: Above high normal; Units: %; Status: F Test: BASO %; Value: 0.3; Range: 0.0-1.0; Units: %; Status: F Test: LARGE UNSTAINED CELL %; Value: 2.7; Range: 0.0-4.0; Units: %; Status: F Test: NEUTROPHILS #; Value: 3.4; Range: 1.8-7.7; Units: K/mm3; Status: F Test: LYMPH #; Value: 2.5; Range: 1.5-4.5; Units: K/mm3; Status: F Test: MONO #; Value: 0.6; Range: 0.0-0.8; Units: K/mm3; Status: F Test: EOS #; Value: 0.3; Range: 0.0-0.50; Units: K/mm3; Status: F Test: BASO #; Value: 0.0; Range: 0.0-0.2; Units: K/mm3; Status: F Test: LARGE UNSTAINED CELL #; Value: 0.2; Range: 0.0-0.4; Units: K/mm3; Status: F Lab Order: LIPASE; SPEC'M 05/26/16 04:19 Test: LIPASE; Value: 423; Range: 73-393; Abnormal: Above high normal; Units: U/L; Status: F Radiology Order: portable chest Test: portable chest REASON FOR EXAMINATION: Chest Pain; PORTABLE CHEST: 05/25/2016 at 06:48 PM:; ; Clinical history: Chest pain.; ; Comparison: 02/24/2011, 07/14/2010 chest x-ray.; ; Findings. Lungs are well inflated. CP angles sharply defined. There is no; effusion, infiltrate, atelectasis or mass. Heart not grossly enlarged for; portable technique. There is no vascular redistribution or pulmonary edema.; Some minor basilar fibrotic changes seen, but stable.; ; No widening of the mediastinum. Airway intact. The aorta normal. Bones show; some degenerative changes AC joints. Plate and screw fixation from previous; anterior cervical fusion, stable.; ; Impression:; ; 1. No acute cardiopulmonary disease, stable chest.; ; ; ; ; Signed by; Morris Whittaker MD 05/25/2016 08:19 P; Radiology Order: EKG-ADULT Test: EKG-ADULT REASON FOR EXAMINATION: Chest Pain; Stationary ECG Study; [facility] - ED; ; Test Date: 2016-05-25; Pat Name: JADA LORENZANA Department:; Room: -; Gender: M Tumbler Operator: damon; : 1960 Requested By: Kristy Mccarty; Order Number: [id number] Reading MD: Maury Jeong; Measurements; Intervals Garrett; Rate: 91 P: 51; NJ: 204 QRS: -10; QRSD: 128 T: 61; QT: 338; QTc: 417; Interpretive Statements; SINUS RHYTHM WITH 1ST DEGREE AV BLOCK; INC. LBBB; ; Electronically Signed On 05-25-2016 21:30:36 EST by Maury Jeong; Radiology Order: CT ABD & PELVIS: No Contrast Test: CT ABD & PELVIS: No Contrast REASON FOR EXAMINATION: acute renal failure, transplant; ; CT of the abdomen and pelvis without contrast; Clinical statement: acute renal failure.; Technique: Multiple axial CT images were obtained from the base of the lungs to the floor of the pelv; is utilizing 5 mm axial slices after administration of oral contrast. Coronal and sagittal reconstruc; tions were also obtained.; Comparison: 04/20/2016.; Findings:; Chest: The visualized lung bases are clear.; Abdomen: The kidneys are absent bilaterally. Surgical clips are seen throughout the retroperitoneum a; nd appear stable. The liver, spleen, pancreas, gallbladder and adrenal glands are unremarkable. The a; nagi demonstrates normal caliber and contour. There is no abdominal lymphadenopathy or ascites.; Pelvis: The transplant kidney in the right lower quadrant appears unremarkable. There is no evidence; of hydronephrosis or nephrolithiasis. A right-sided ostomy is noted, with herniating loops of bowel.; There is no evidence of incarceration. The bowel is otherwise unremarkable, with no obstructive or in; flammatory changes. The urinary bladder is within normal limits. There is no pelvic lymphadenopathy o; r ascites. The other pelvic structures appear unremarkable.; Bones: There are no suspicious osseous abnormalities seen.; Impression:; 1. The transplant kidney in the right lower quadrant appears unremarkable.; 2. No obstructive or inflammatory bowel changes.; 3. Overall, no significant interval change.; ; Outcome: 05/25 19:01 Property :Personal belongings accompany Pt. cf2 05/26 01:02 Decision to Hospitalize by Provider. mm11 12:33 Patient left the ED. dy Signatures: Dispatcher [employer] EDMS Mirtha Bunch, Reg Reg Naseem Lares, RN Alpesh Patel RN RN mlb1 Barbra Shah,RT RT Felton Hernandez DO DO mm11 Cherelle Myers, RN RN sls1 Anne Flynn RN RN pml Sandra, Regla, PYTHON ARCHITECT PYTHON ARCHITECT tmm1 Laith Posadas gr2 Asia Horne,RN RN Coy Griffith, PYTHON ARCHITECT PYTHON ARCHITECT d Vandana Ames Robert rn1 Magalys Mills,RN RN kc3 Tiffanie Jurado,RN RN cf2 Corrections: (The following items were deleted from the chart) 05:00 05/25 19:07 Reassessment: Patient denies pain at this time. Patient states feeling cf2 better. cf2 MTDD
--- NOTE | 2016-05-26 12:34 | EDDOCDS ---
Physician Documentation [facility] Name: Ramos Herrera Age: 55 yrs Sex: Male : 1960 Arrival Date: 05/25/2016 Time: 18:28 Bed Admit Hold Private MD: Pepe Mortensen MD Disposition: 05/26/16 01:02 Hospitalization ordered by Naseem Baker for Inpatient Admission. Preliminary diagnosis are Acute kidney failure, Kidney transplant status. - Bed requested for PCU. - Status is Inpatient Admission. dy - Condition is Stable. - Problem is an ongoing problem. - Symptoms have improved. Historical: - Allergies: SULFA (SULFONAMIDES) (Hives); - Home Meds: 1. allopurinol 300 mg Oral tab once daily 2. aspirin 81 mg Oral chew 1 tab mon, wed,fri 3. finasteride 5 mg oral tab 1 tab once daily 4. lisinopril 10 mg Oral tab 1 tab once daily 5. Myfortic 360 mg oral TbEC 2 times per day 6. prednisone 5 mg Oral tab 1 tab once daily 7. Prograf 1 mg oral cap 3 cap daily 8. Zofran (as hydrochloride) 4 mg Oral tab - PMHx: Polycystic Kidney Disease; Renal Failure w/o Dialysis; Diverticulitis; - PSHx: Kidney Transplant- Right; Colostomy Construction; - Social history: Smoking status: Patient states was never smoker of tobacco. No barriers to communication noted, The patient speaks fluent Irish, Speaks appropriately for age. - Family history: Not pertinent. - : The pt / caregiver states he / she is not on anticoagulants. Home medication list is obtained from the patient. - Exposure Risk Screening:: None identified. Vital Signs: 05/25 18:30 BP 102 / 48; Pulse 98; Resp 18 S; Temp 96.7(O); Pulse Ox 99% on R/A; Weight 102.97 kg / gr2 227.01 lbs (R); Height 6 ft. 2 in. (187.96 cm) (R); Pain 6/10; 19:07 Pulse 86 MON; Pulse Ox 98% ; cf2 19:07 BP 91 / 52 (auto/); cf2 19:07 Temp 98.0; Pain 0/10; cf2 19:15 Pulse 91 MON; Pulse Ox 98% ; cf2 19:15 BP 84 / 49 (auto/); cf2 19:26 Pulse 84 MON; Pulse Ox 99% ; cf2 19:26 BP 95 / 48 (auto/); cf2 19:30 Pulse 84 MON; Pulse Ox 99% ; cf2 19:30 BP 90 / 53 (auto/); cf2 19:45 Pulse 88 MON; Pulse Ox 99% ; cf2 19:45 BP 116 / 56 (auto/); cf2 20:00 Pulse 85 MON; Pulse Ox 99% ; cf2 20:00 BP 116 / 54 (auto/); cf2 20:15 Pulse 83 MON; Pulse Ox 97% ; cf2 20:15 BP 117 / 57 (auto/); cf2 20:30 Pulse 80 MON; Pulse Ox 99% ; cf2 20:30 BP 121 / 58 (auto/); cf2 20:45 Pulse 84 MON; Pulse Ox 98% ; cf2 20:45 BP 114 / 56 (auto/); cf2 21:00 Pulse 85 MON; Pulse Ox 98% ; cf2 21:00 BP 207 / 91 (auto/); cf2 21:15 Pulse 87 MON; Pulse Ox 98% ; cf2 21:15 BP 140 / 62 (auto/); cf2 21:30 Pulse 92 MON; Pulse Ox 98% ; cf2 21:30 BP 196 / 112 (auto/); cf2 21:45 Pulse 89 MON; Pulse Ox 96% ; cf2 21:45 BP 148 / 64 (auto/); cf2 22:00 Pulse 91 MON; Pulse Ox 98% ; cf2 22:00 BP 102 / 58 (auto/); cf2 22:15 Pulse 83 MON; Pulse Ox 98% ; cf2 22:15 BP 103 / 55 (auto/); cf2 22:38 Pulse 88 MON; Pulse Ox 98% ; cf2 22:38 BP 127 / 60 (auto/); cf2 22:39 Pulse 86 MON; Pulse Ox 98% ; cf2 22:39 BP 115 / 55 (auto/); cf2 22:45 Pulse 85 MON; Pulse Ox 98% ; cf2 22:45 BP 112 / 57 (auto/); cf2 23:39 Pulse 88 MON; Pulse Ox 98% ; cf2 23:39 BP 121 / 56 (auto/); cf2 05/26 00:03 Pulse 91 MON; cf2 00:03 BP 138 / 61 (auto/); cf2 00:04 Pulse 87 MON; Pulse Ox 99% ; cf2 00:26 Pulse 87 MON; Pulse Ox 98% ; cf2 00:30 Pulse 88 MON; cf2 00:30 BP 129 / 78 (auto/); cf2 01:00 Pulse 88 MON; cf2 01:00 BP 135 / 63 (auto/); cf2 01:30 Pulse 90 MON; Pulse Ox 99% ; cf2 01:30 BP 145 / 67 (auto/); cf2 02:00 Pulse 91 MON; cf2 02:00 BP 127 / 57 (auto/); cf2 02:30 Pulse 90 MON; cf2 02:30 BP 111 / 53 (auto/); cf2 03:00 Pulse 97 MON; cf2 03:00 BP 197 / 102 (auto/); cf2 04:00 Pulse 88 MON; cf2 04:00 BP 113 / 54 (auto/); cf2 05:20 Pulse 84 MON; Pulse Ox 98% ; cf2 07:18 Pulse 90 MON; Pulse Ox 98% ; pml 07:18 BP 135 / 72 (auto/); pml 05/25 18:30 Body Mass Index 29.14 (102.97 kg, 187.96 cm) gr2 MDM: 05/25 18:31 Crown Buffer/Pulse Ox/q 30 min VS ordered. sd1 18:31 IV Saline Lock ordered. sd1 18:31 Rhythm Strip to chart ordered. sd1 18:31 Undress patient appropriately for examination ordered. sd1 18:32 Basic Metabolic Profile Ordered. EDMS 18:32 CBC with Diff Ordered. EDMS 18:32 Cardiac Injury Profile Ordered. EDMS 18:32 Troponin Ordered. EDMS 18:32 portable chest Ordered. EDMS 18:32 ECG WITH READING ER PHYS+CARDIAG ordered. EDMS 19:11 LR Solution 1000 ml IV at bolus once ordered. mm11 19:12 Partial Thromboplastin Time Ordered. EDMS 19:12 Prothrombin Time Profile\E\INR Ordered. EDMS 19:12 Urinalysis Ordered. EDMS 19:12 Lactic Acid (Jim tube on ice) Ordered. EDMS 19:12 Urine Culture Ordered. EDMS 19:12 NOTHING BY MOUTH+DIET ordered. EDMS 19:12 Venous Blood Gas (large pea green tube on ice) Ordered. EDMS 19:37 AMYLASE Ordered. EDMS 19:37 LIPASE Ordered. EDMS 19:37 LIVER PROFILE Ordered. EDMS 20:02 CBC with Diff Reviewed. mm11 20:02 Partial Thromboplastin Time Reviewed. mm11 20:02 Prothrombin Time Profile\E\INR Reviewed. mm11 20:02 Lactic Acid (Jim tube on ice) Reviewed. mm11 20:02 Misc. Nursing Order ordered. mm11 20:02 NS 0.9% 1000 ml IV at bolus once ordered. mm11 20:17 Basic Metabolic Profile Reviewed. mm11 20:17 Cardiac Injury Profile Reviewed. mm11 20:17 Venous Blood Gas (large pea green tube on ice) Reviewed. mm11 20:17 LIPASE Reviewed. mm11 20:17 Troponin Reviewed. mm11 20:17 AMYLASE Reviewed. mm11 20:17 LIVER PROFILE Reviewed. mm11 20:17 portable chest Reviewed. mm11 21:28 portable chest Reviewed. mm11 21:36 NS 0.9% 1000 ml IV at bolus once ordered. mm11 21:36 Polystyrene Suspension 15 grams PO once ordered. mm11 21:37 CT ABD & PELVIS: No Contrast Ordered. EDMS 21:44 Urinalysis Reviewed. mm11 22:19 EKG-ADULT Reviewed. mm11 23:19 NS 0.9% 1000 ml IV at bolus once ordered. mm11 23:52 GASTROINTESTINAL (GI) PANEL Ordered. EDMS 05/26 00:26 Financial registration complete. slh 00:47 NS 0.9% 1000 ml IV at 250 mL/hr continuous ordered. mm11 00:48 [facility] Payment Agreement was scanned into [employer] and attached to record. slh 00:48 [employer] ordered. mm11 00:48 BED REQUEST+ADM ordered. EDMS 00:51 [employer] complete. tmm1 01:13 Prograf 3 mg PO once; administer on an empty stomach ordered. mm11 01:13 Myfortic Delayed Release Tablet 360 mg PO once ordered. mm11 02:53 Written Provider Order was scanned into [employer] and attached to record. tmm1 02:54 RENAL PROFILE Ordered. EDMS 02:54 MAGNESIUM LEVEL Ordered. EDMS 02:54 CBC WITH DIFFERENTIAL Ordered. EDMS 02:54 LIPASE Ordered. EDMS 02:58 Admission / Observation Status ordered. EDMS 02:58 ELECTROCARDIOGRAM ADULT ordered. EDMS 02:59 OTHER CUSTOM DIETS ordered. EDMS 06:36 RENAL PROFILE Reviewed. mm11 06:36 CBC WITH DIFFERENTIAL Reviewed. mm11 06:36 LIPASE Reviewed. mm11 06:36 GASTROINTESTINAL (GI) PANEL Reviewed. mm11 06:36 MAGNESIUM LEVEL Reviewed. mm11 06:36 CT ABD & PELVIS: No Contrast Reviewed. mm11 09:15 T-Sheet-- Draft Copy was scanned into [employer] and attached to record. gb 11:40 RENAL PROFILE Ordered. EDMS Administered Medications: 05/25 19:30 Drug: LR 1000 ml [lactated ringers intravenous solution] Route: IV; Rate: bolus; Site: cf2 left antecubital; 20:10 Drug: NS 0.9% 1000 ml [sodium chloride 0.9 % intravenous solution] Route: IV; Rate: cf2 bolus; Site: left antecubital; 21:45 Drug: NS 0.9% 1000 ml [sodium chloride 0.9 % intravenous solution] Route: IV; Rate: cf2 bolus; Site: left antecubital; 21:45 Drug: Polystyrene 15 grams [sodium polystyrene sulfonate 15 gram/60 mL oral suspension cf2 (1200 drps)] Route: PO; 23:41 Drug: NS 0.9% 1000 ml [sodium chloride 0.9 % intravenous solution] Route: IV; Rate: sls1 bolus; Site: left antecubital; 05/26 02:53 Drug: Prograf 3 mg Route: PO; cf2 02:53 Drug: Myfortic Delayed Release Tablet 360 mg Route: PO; cf2 02:54 Drug: NS 0.9% 1000 ml [sodium chloride 0.9 % intravenous solution] Route: IV; Rate: 250 cf2 mL/hr; Site: left antecubital; Signatures: Dispatcher [facility] EDMS Kristy Mccarty MD MD sd1 Mirtha Bunch, Reg Reg gb Naseem Lujan RN Alpesh Patel RN RN mlb1 Felton Franklin, DO mm11 Brigitteear, Regla, PUBLICATION DISTRIBUTOR PUBLICATION DISTRIBUTOR tmm1 Vandana Ames ChristinaRN RN cf2 Martin Loja RN RN sa Strong, Shannon RN sls1 The chart was reviewed and I authenticate all verbal orders and agree with the evaluation and treatment provided.Corrections: (The following items were deleted from the chart) 05/25 19:37 19:12 AMYLASE+LAB ordered. EDMS EDMS 19:37 19:12 LIPASE+LAB ordered. EDMS EDMS 19:37 19:12 LIVER PROFILE+LAB ordered. EDMS EDMS 23:52 23:51 GASTROINTESTINAL (GI) PANEL+JAM ordered. EDMS EDMS 05/26 03:01 00:53 BASIC METABOLIC PROFILE ordered. EDMS EDMS Attachments: 00:48 [facility] Payment Agreement [facility] 02:53 Written Provider Order tmm1 09:15 T-Sheet-- Draft Copy gb MTDD
[2016-05-26 12:56] LABS: ALBUMIN 3.6 GM/DL (3.2-5.2); ANION GAP 10 MEQ/L (8-16); BLOOD UREA NITROGEN 42 MG/DL (7-18); CALCIUM LEVEL 8.4 MG/DL (8.5-10.1); CARBON DIOXIDE LEVEL 13 MEQ/L (21-32); CHLORIDE LEVEL 117 MEQ/L (98-107); CREATININE FOR GFR 1.26 MG/DL (0.70-1.30); GLOMERULAR FILTRATION RATE > 60.0 (>56); GLUCOSE, FASTING 187 MG/DL (70-105); PHOSPHORUS LEVEL 1.8 MG/DL (2.5-4.9); SODIUM LEVEL 140 MEQ/L (136-145)
[2016-05-26 12:57] LABS: POTASSIUM SERUM 5.9 MEQ/L (3.5-5.1)
[2016-05-26] MEDS: LOPERAMIDE 2 MG CAP PO SCH (13:20)
[2016-05-26] MEDS: METAMUCIL (PSYLLIUM) PACKET PO SCH (13:20)
[2016-05-26] MEDS: SODIUM BICARBONATE 75 MEQ in NS 0.45% 1,000 ML IV SCH ×2 (13:21→23:00)
--- NOTE | 2016-05-26 14:17 | CR.PDOC ---
[facility] Consultation Consultation DATE OF ADMISSION: 05/26/2016 DATE OF CONSULTATION: 05/26/2016 TRANSPLANT HIGH PRESSURE OPERATOR: Dr. Becker in [place] GENERAL SURGEON: Dr. Krueger in [place] REQUESTING PROVIDER: Dr. Naseem Baker REASON FOR CONSULTATION/CHIEF COMPLAINT: Acute renal failure HISTORY OF PRESENT ILLNESS: Mr. Herrera is a 55-year-old male with past medical history significant for polycystic kidney disease status post renal transplant in 2006 currently on immunosuppression medications, history of hemodialysis from 0309-6320 prior to renal transplant, history of diverticulitis status post ileostomy, hypertension, benign prostatic hypertrophy , and gout who presented to the hospital with complaints of high ostomy output. He reports that he had the ostomy placed February 17 due to recurrent diverticulitis. He states that this was supposed to be reversed next . He reports that over the last few weeks, he has been having increased output from the ostomy bag that has outpaced his urinary output. He states that he was drinking over 1 gallon of water a day. He states that he started to experience itching about a week and a half ago. Then developed crampy pain in bilateral arms and chest a couple of days ago. He states that he is familiar with this cramping because in the past when he got dehydrated, and he would eat some salt and that would make it better. He reports that his blood pressure was elevated yesterday with systolic in the 180s. He also reports nausea. No vomiting, cough, shortness of breath, abdominal pain, fever, chills, visual disturbance, ulcer or rash. Laboratory assessment in the emergency department revealed acute kidney injury and elevated potassium. He has a baseline creatinine of about 1.1. He received a dose of Kayexalate last night and was started on IV fluids. Nephrology consult was requested secondary to patient's acute kidney injury. PAST MEDICAL HISTORY: 1. Polycystic kidney disease status post renal transplant in 2006 currently on prednisone, Prograf, and Myfortic 2. History of hemodialysis from 7360-5422 prior to renal transplant 3. History of diverticulitis status post ileostomy 4. Hypertension 5. Benign prostatic hypertrophy 6. History of gout PAST SURGICAL HISTORY: 1. Ileostomy in February 2016 2. Left arm AV graft with stent 3. Right arm AV fistula 4. Kidney transplant in 2006 5. Bilateral kidney removal in 2002 6. Multiple ear surgeries 7. Ablation surgery 8. Right hip pinning for slipped capital femoral epiphysis as a teen ALLERGIES: Sulfa drugs (swelling and difficulty breathing) HOME MEDICATIONS: Please see below. FAMILY HISTORY: Her father had history of renal disease and his father also has history of polycystic kidney disease status post hemodialysis. SOCIAL HISTORY: Patient denies any tobacco use. Social alcohol use. No illicit drugs. 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 Lives with his significant other. REVIEW OF SYSTEMS: CONSTITUTIONAL: Patient reports that he has lost about 40 pounds since February 2016. No fever, chills, weakness. HEENT: No headache, lightheadedness, dizziness. No acute changes to vision or hearing. No sore throat or hoarseness. CARDIOVASCULAR: Positive for chest pain yesterday, which has resolved. No shortness of breath with exertion. No chronic lower extremity edema. No paroxysmal nocturnal dyspnea or orthopnea. RESPIRATORY: No cough or sputum production. No shortness of breath. GENITOURINARY: Reports decreased urinary output. No dysuria or hematuria. MUSCULOSKELETAL: No unusual muscle or joint pains. GASTROINTESTINAL: Positive for nausea yesterday. No vomiting. No abdominal pain or constipation. He has high ileostomy output. No blood in the stool. SKIN: No rashes or unusual skin lesions. NEUROLOGICAL: No syncope. No paresthesias. No history of CVA. ENDOCRINE: No history of diabetes or thyroid disorder. HEMATOLOGIC/LYMPHATIC: No unusual bruising or excessive bleeding. PHYSICAL EXAMINATION: VITAL SIGNS: Temperature 98.2, pulse 89, respiratory rate 20, blood pressure 131 /62, pulse ox 96% on room air, weight 102.97 KG, height 187.96 cm GENERAL APPEARANCE: Patient is alert and oriented 3. In no acute distress. HEENT: Normocephalic, atraumatic. Extraocular muscles are intact. Pupils are equally round and reactive to light. No scleral icterus. Moist mucosa. NECK: Supple. No thyromegaly. Trachea is midline. No significant jugular venous distention could be appreciated. HEART: Normal S1, S2. Regular rate and rhythm. Systolic ejection murmur heard best in the mitral region. LUNGS: Clear to auscultation bilaterally. No rales, rhonchi or wheezing. ABDOMEN: Soft. Nontender, nondistended. Bowel sounds are present. He has an ileostomy bag present in the right quadrant with brownish liquid stool. Multiple healed surgical scars. EXTREMITIES: No cyanosis or edema. Positive pedal pulses bilaterally. NEUROLOGICAL: No focal deficits. Cranial nerves II through XII are grossly intact. Motor and sensation intact. PSYCHIATRIC: Appropriate mood and affect. LABORATORY DATA: 05/26/16 04:19 Red Blood Count 3.76 L, Mean Corpuscular Volume 92.7, Mean Corpuscular Hemoglobin 32.3, Mean Corpuscular Hemoglobin Concent 34.8, Red Cell Distribution Width 14.9 H, Anion Gap, Albumin 3.3, Anion Gap 9, Calcium Level 8.5, Glomerular Filtration Rate 55.3L, Lipase 423H, Magnesium Level 1.8, Phosphorus Level 3.0 MICROBIOLOGY: Urine culture and GI panel were negative. IMAGING: Chest x-ray on 05/25 does not show any acute pulmonary process. Abdomen/ pelvis CT obtained on 05/25 showed the transplant kidney in the right lower quadrant that is unremarkable, no acute changes. ASSESSMENT/PLAN: Mr. Herrera is a 55-year-old male with past medical history significant for polycystic kidney disease status post renal transplant in 2006 currently on immunosuppression medications, history of hemodialysis from 3280-1020 prior to renal transplant, history of diverticulitis status post ileostomy, hypertension, benign prostatic hypertrophy, and gout who presents with high ileostomy output, found to have acute kidney injury and electrolyte disturbances. 1. Acute on chronic kidney disease secondary to dehydration and high ileostomy output. Further complicated by being on lisinopril while volume depleted. Patient received normal saline last night. Given his acidosis we will change his fluids over to bicarbonate/half-normal saline at a rate of 150 mL/h. We have also started Imodium and Metamucil for his high output and hopefully we can maintain his volume status given his profuse diarrhea. 2. Hyperkalemia. Patient received a dose of Kayexalate and his potassium has improved. We will obtain another renal profile around noon time to reassess his electrolytes. 3. Hyperchloremic metabolic acidosis. It is anticipated that his acidosis may worsen, therefore we have started him on bicarbonate to assist with improving his acidosis due to his high output. 4. Hyponatremia secondary to volume depletion. It appears that this has improved. Continue to monitor electrolytes. 5. Polycystic kidney disease status post renal transplant in 2006 currently on prednisone, Prograf, and Myfortic at home. It is advised that patient be changed over to his home Myfortic instead of the CellCept that we have in the hospital. He has also been placed on stress dose steroids and home dose of prednisone has been held at this time. 3. History of diverticulitis status post ostomy. Patient reports that he is supposed to have this reversed next 06/01. We expect that his renal function will recover over the next 48 hours and that this could still take place. 4. Hypertension. Blood pressure was actually soft on admission and lisinopril was held. Also held in light of acute kidney injury. 5. Benign prostatic hypertrophy. Patient is on Proscar. 6. History of gout. Patient is on allopurinol, which was held due to JOHN. Thank you for the consultation and allowing us participate in the care of Mr. Herrera. We will continue to follow along with you. Vital Signs/I&O Vital Signs Date Time Temp Pulse Resp B/P Pulse Ox O2 Delivery O2 Flow Rate FiO2 05/26/16 08:18 98.2 89 20 131/62 96 Room Air Allergies Coded Allergies: Sulfa Drugs (Verified Allergy, Severe, HIVES,DYSPNEA, 08/08/12) Rabbit Epithelium (Verified Allergy, Unknown, RABBIT FUR, 03/11/13) Home Medications Scheduled Allopurinol (Zyloprim) 300 Mg Tab 300 MG PO DAILY (Reported) Aspirin (Aspirin 81) 81 Mg Tab 81 MG PO 3XW (Reported) Mon, Wed, Fri Finasteride (Finasteride) 5 Mg Tab 5 MG PO DAILY (Reported) Lisinopril (Lisinopril) 10 Mg Tab 10 MG PO DAILY (Reported) Mycophenolate Sodium (Myfortic) 360 Mg Tab 360 MG PO BID (Reported) Prednisone (Prednisone) 5 Mg Tab 5 MG PO DAILY (Reported) Tacrolimus (Prograf) 1 Mg Cap 3 MG PO BID (Reported) GME ATTESTATION GME ATTESTATION My preceptor for this patient encounter was physically present in the building during the encounter and was fully available. As needed, all aspects of the patient interview, examination, medical decision making process, and medical care plan development were reviewed and approved by the preceptor. Preceptor is aware and concurs with the plan as stated in the body of this note and will attest to such by his/her cosignature. 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 S/P LUKT 2006. He was admitted overnight with JOHN of Renal allograft sec to high output ileostomy, Metabolic acidosis, Hyperkalemia. Renal function improving with aggressive IV fluid hydration. IV fluids changed to Bicarb fluids sec to acidosis and hyperkalemia. Kayexalate, IV Sodium Bicarb 50MEQ and calcium gluconate was repeated once more for persistent hyperkalemia. Metamucil and Imodium for ileostomy diarrhea. Cont current immunosuppression. Plan of care discussed with house staff. SHILA SILVA DO May 26, 2016 14:17 MALLORY GANDARA MD May 26, 2016 20:49
[2016-05-26] MEDS ORDERED: CALCIUM GLUCONATE 1,000 MG in D5W MINI-BAG PLUS 100 ML IV ONE (14:30)
--- NOTE | 2016-05-26 15:28 | IPNPDOC ---
Assessment/Plan Date Seen The patient was seen on 05/26/16. Problems Problems: (1) JOHN (acute kidney injury) Status: Acute Problem Text: Pre-renal due to possible gastroenteritis. GI panel pending. Pt taking PO. Nephrology consulting. - bicarb for acidosis - avoid nephrotoxic agents - kayexalate when K > 5.5 (2) 1St degree AV block Status: Acute Problem Text: Unknown if this is chronic. Pt asymptomatic. - cont tele - kayexalate for K >5.5 (3) History of renal transplant Status: Chronic Problem Text: On immune suppressive therapy. (4) Hyperkalemia Status: Acute Problem Text: Kayexalate for K >5.5 Calcium gluconate if K >7 or cardiac sx. Plan / VTE VTE Prophylaxis Ordered?: Yes Disposition Pending resolution of acidosis, stable potassium Subjective Review of Systems CC/HPI The patient is a 55-year-old male admitted with a reason for visit of Acute Renal Failure. Events since last encounter Pt doing well. Feeling much better. Ostomy output has slowed. Denies fevers, chills, or sweats. Constitutional: Denies: Chills, Fever, Malaise Pulmonary: Denies: Cough, Dyspnea Cardiovascular: Denies: Chest Pain Gastrointestinal: Denies: Abdominal Pain, Constipation, Diarrhea, Nausea, Vomiting Other systems 10 pt ROS otherwise negative Objective Physical Examination General Exam: Positive: Alert, Cooperative, No Acute Distress Eye Exam: Positive: Conjunctiva & lids normal, Negative: Sclera icteric ENT Exam: Positive: Mucous membr. moist/pink Neck Exam: Positive: Supple, Negative: JVD, thyromegaly Chest Exam: Positive: Clear to auscultation, Normal air movement, Negative: Rales, Rhonchi, Wheezing Heart Exam: Positive: Normal S1, Normal S2, Rate Normal, Negative: Murmurs Abdomen Exam: Positive: Normal bowel sounds, Soft, Negative: Hepatospenomegaly, Mass, Tenderness Extremity Exam: Negative: Edema Vital Signs/I&O Vital Signs Date Time Temp Pulse Resp B/P Pulse Ox O2 Delivery O2 Flow Rate FiO2 05/26/16 08:18 98.2 89 20 131/62 96 Room Air Laboratory Data Labs 24H Laboratory Tests 2 05/25/16 18:57: Aspartate Amino Transf (AST/SGOT) 16, Alanine Aminotransferase (ALT/SGPT) 29, Alkaline Phosphatase 58, Total Bilirubin 0.5, Direct Bilirubin 0.1, Albumin 4.1 , Albumin/Globulin Ratio 1.24, Amylase Level 96, Anion Gap 8, White Blood Count 10.0, Red Blood Count 4.43, Hemoglobin 14.0, Hematocrit 41.0L, Mean Corpuscular Volume 92.6, Mean Corpuscular Hemoglobin 31.7, Mean Corpuscular Hemoglobin Concent 34.3, Red Cell Distribution Width 14.8H, Platelet Count 199, Neutrophils (%) (Auto) 55.5, Lymphocytes (%) (Auto) 32.6, Monocytes (%) (Auto) 6.6H, Eosinophils (%) (Auto) 2.4, Basophils (%) (Auto) 0.3, Neutrophils # (Auto ) 5.6, Lymphocytes # (Auto) 3.3, Monocytes # (Auto) 0.7, Eosinophils # (Auto) 0.2, Basophils # (Auto) 0.0, Calcium Level 9.6, Creatine Kinase MB 3.0, Creatine Kinase MB Relative Index 4.83H, Glomerular Filtration Rate 42.9L, Large Unclassified Cells # 0.3, Large Unclassified Cells % 2.7, Lipase 501H, Total Creatine Kinase 62, Total Protein 7.4, Troponin I < 0.02 05/25/16 19:24: Activated Partial Thromboplast Time 34.4, Prothromb Time International Ratio 0.99, Prothrombin Time 13.2 05/25/16 19:25: Blood Gas Bicarbonate Standard 17.4, Lactic Acid Level 0.4, Urine Amorphous Sediment , Urine Appearance CLEAR, Urine Color STRAW, Urine pH 5.0, Urine Specific [place] 1.005, Urine Protein NEGATIVE, Urine Glucose (UA) NEGATIVE, Urine Ketones NEGATIVE, Urine Urobilinogen 0.2, Urine Bilirubin NEGATIVE, Urine Leukocyte Esterase NEGATIVE, Urine Bacteria (Auto) NEGATIVE, Urine Blood NEGATIVE, Urine Calcium Carbonate Cryst(Auto) , Urine Calcium Oxalate Cryst ( Auto) , Urine Calcium Phosphate [place] (Auto) , Urine Cellular Casts , Urine Cystine Crystals , Urine Granular Casts (Auto) , Urine Hyaline Casts (Auto) 3, Urine Leucine Crystals , Urine Mucus (Auto) SMALL, Urine Nitrite NEGATIVE, Urine Oval Fat Bodies (Auto) , Urine RBC (Auto) 2, Urine Renal Epithelial Cells , Urine Sperm (Auto) , Urine Squamous Epithelial Cells 0, Urine Transitional Epithelial Cells , Urine Trichomonas (Auto) , Urine Triple Phosphate Cryst (Auto ) , Urine Tyrosine Crystals , Urine Uric Acid Crystals (Auto) , Urine WBC (Auto ) 1, Urine Waxy Casts (Auto) , Urine Yeast-Like Cells (Auto) , Venous Blood Base Excess -9.1L, Venous Blood pH 7.322L, Venous Blood Partial Pressure CO2 30.9L, Venous Blood Partial Pressure O2 254.1H, Venous Blood Total Carbon Dioxide 16.6L, Venous Blood HCO3 15.6L, Venous Blood Oxygen Saturation 99.8H 05/26/16 04:19: Albumin 3.3, Anion Gap 9, White Blood Count 6.9, Red Blood Count 3.76L, Hemoglobin 12.2L, Hematocrit 34.9L, Mean Corpuscular Volume 92.7, Mean Corpuscular Hemoglobin 32.3, Mean Corpuscular Hemoglobin Concent 34.8, Red Cell Distribution Width 14.9H, Platelet Count 135L, Neutrophils (%) (Auto) 49.2, Lymphocytes (%) (Auto) 36.0, Monocytes (%) (Auto) 8.0H, Eosinophils (%) (Auto) 3.9H, Basophils (%) (Auto) 0.3, Neutrophils # (Auto) 3.4, Lymphocytes # (Auto) 2.5, Monocytes # (Auto) 0.6, Eosinophils # (Auto) 0.3, Basophils # (Auto) 0.0, Calcium Level 8.5, Glomerular Filtration Rate 55.3L, Large Unclassified Cells # 0.2, Large Unclassified Cells % 2.7, Lipase 423H, Blood Urea Nitrogen 51H, Creatinine 1.42H, Sodium Level 143#, Potassium Level 5.3H, Chloride Level 117H, Carbon Dioxide Level 17L, Magnesium Level 1.8, Phosphorus Level 3.0 05/26/16 12:25: Albumin 3.6, Blood Urea Nitrogen 42H, Creatinine 1.26, Sodium Level 140, Potassium Level 5.9H, Chloride Level 117H, Carbon Dioxide Level 13L, Anion Gap 10, Calcium Level 8.4L, Glomerular Filtration Rate > 60.0, Phosphorus Level 1.8# L CBC/BMP Laboratory Tests 05/25/16 18:57 Red Blood Count 4.43, Mean Corpuscular Volume 92.6, Mean Corpuscular Hemoglobin 31.7, Mean Corpuscular Hemoglobin Concent 34.3, Red Cell Distribution Width 14.8 H, Neutrophils (%) (Auto) 55.5, Lymphocytes (%) (Auto) 32.6, Monocytes (%) (Auto) 6.6 H, Eosinophils (%) (Auto) 2.4, Basophils (%) (Auto) 0.3, Neutrophils # (Auto) 5.6, Lymphocytes # (Auto) 3.3, Monocytes # (Auto) 0.7, Eosinophils # ( Auto) 0.2, Basophils # (Auto) 0.0 05/26/16 04:19 Red Blood Count 3.76 L, Mean Corpuscular Volume 92.7, Mean Corpuscular Hemoglobin 32.3, Mean Corpuscular Hemoglobin Concent 34.8, Red Cell Distribution Width 14.9 H, Neutrophils (%) (Auto) 49.2, Lymphocytes (%) (Auto) 36.0, Monocytes (%) (Auto) 8.0 H, Eosinophils (%) (Auto) 3.9 H, Basophils (%) ( Auto) 0.3, Neutrophils # (Auto) 3.4, Lymphocytes # (Auto) 2.5, Monocytes # (Auto ) 0.6, Eosinophils # (Auto) 0.3, Basophils # (Auto) 0.0, Anion Gap 9 05/26/16 12:25 Anion Gap 10 Microbiology Microbiology 05/26/16 Gastrointestinal Tract Panel (PCR) - Final, Complete 05/25/16 Urine Culture - Final, Complete ERICA CASILLAS MD May 26, 2016 15:28
[2016-05-26 16:00] VITALS: BP 133/65
[2016-05-26 19:03] LABS: ALBUMIN 3.4 GM/DL (3.2-5.2); ANION GAP 8 MEQ/L (8-16); BLOOD UREA NITROGEN 41 MG/DL (7-18); CALCIUM LEVEL 8.8 MG/DL (8.5-10.1); CARBON DIOXIDE LEVEL 16 MEQ/L (21-32); CHLORIDE LEVEL 115 MEQ/L (98-107); CREATININE FOR GFR 1.28 MG/DL (0.70-1.30); GLOMERULAR FILTRATION RATE > 60.0 (>56); GLUCOSE, FASTING 227 MG/DL (70-105); PHOSPHORUS LEVEL 2.1 MG/DL (2.5-4.9); SODIUM LEVEL 139 MEQ/L (136-145)
[2016-05-26 19:14] LABS: POTASSIUM SERUM 6.2 MEQ/L (3.5-5.1)
[2016-05-26] MEDS ORDERED: SOD POLYSTYRENE SULFONATE SUSP 15 GM/60 ML UD PO ONE ×2 (19:30→20:15)
[2016-05-26 20:00] VITALS: BP 140/68
[2016-05-26] MEDS ORDERED: SODIUM BICARBONATE 8.4% INJ 50 ML SYRINGE IV STA (20:02)
[2016-05-26] MEDS ORDERED: SODIUM PHOSPHATE INJ 20 MMOL in D5W 250 ML IV ONE (21:30)
[2016-05-26] MEDS ORDERED: MAGNESIUM CITRATE 300 ML BTL As Ordered ONE (22:38)
[2016-05-26 23:59] VITALS: BP 163/68
[2016-05-27] VITALS (7 sets, daily range): BP systolic 125–150; BP diastolic 59–79; PULSE 98
[2016-05-27] MEDS: SODIUM BICARBONATE 75 MEQ in NS 0.45% 1,000 ML IV SCH ×2 (01:06→08:03)
[2016-05-27] MEDS: methylPREDNISolone INJ 125 MG/2 ML VIAL (J2930) IV SCH ×2 (05:04→17:44)
[2016-05-27 05:26] LABS: BASO % 0.1 % (0.0-1.0); EOS % 0.5 % (0.0-3.0); LARGE UNSTAINED CELL # 0.1 K/mm3 (0.0-0.4); LARGE UNSTAINED CELL % 0.8 % (0.0-4.0); LYMPH # 0.9 K/mm3 (1.5-4.5); LYMPH % 12.5 % (24.0-44.0); MEAN CORPUSCULAR HEMOGLOBIN 31.1 pg (27.0-33.0); MEAN CORPUSCULAR HGB CONC 32.6 g/dl (32.0-36.5); MEAN CORPUSCULAR VOLUME 95.4 fl (80.0-96.0); MONO # 0.3 K/mm3 (0.0-0.8); MONO % 3.5 % (0.0-5.0); NEUTROPHILS # 5.8 K/mm3 (1.8-7.7); NEUTROPHILS % 82.6 % (36.0-66.0); PLATELET COUNT, AUTOMATED 139 k/mm3 (150-450); RED CELL DISTRIBUTION WIDTH 14.9 % (11.5-14.5); WHITE BLOOD COUNT 7.1 K/mm3 (4.0-10.0)
[2016-05-27 05:41] LABS: ALBUMIN 3.3 GM/DL (3.2-5.2); CALCIUM LEVEL 8.5 MG/DL (8.5-10.1); CREATININE FOR GFR 1.33 MG/DL (0.70-1.30); GLOMERULAR FILTRATION RATE 59.6 (>56); MAGNESIUM LEVEL 1.6 MG/DL (1.8-2.4); PHOSPHORUS LEVEL 2.8 MG/DL (2.5-4.9); POTASSIUM SERUM 4.9 MEQ/L (3.5-5.1)
[2016-05-27] MEDS ORDERED: MAG SULF 1GM/100ML (MAG RUN) 1 GM in APPROPRIATE DILUENT 1 EA IV ONE (08:00)
[2016-05-27] MEDS: LOPERAMIDE 2 MG CAP PO SCH (08:03)
[2016-05-27] MEDS: TACROLIMUS 1 MG CAP (J7507) PO SCH ×2 (08:03→20:11)
[2016-05-27] MEDS: FINASTERIDE 5 MG TAB PO SCH (08:03)
[2016-05-27] MEDS: METAMUCIL (PSYLLIUM) PACKET PO SCH (08:03)
[2016-05-27] MEDS: HEPARIN SOD (PORCINE) 5000 UNITS/ML VIAL SC SCH ×2 (08:09→20:01)
--- NOTE | 2016-05-27 08:53 | ECGEPIP ---
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
[2016-05-27] MEDS ORDERED: MORPHINE 2 MG/ML 1ML SYRINGE IV ONE (10:30)
--- NOTE | 2016-05-27 10:39 | IPNPDOC ---
Assessment/Plan Date Seen The patient was seen on 05/27/16. Problems Problems: (1) Chest pain Status: Acute Problem Text: pleuritic-type favor viral, but need to r/o PE/ACS-no VQ on weekend (no CTA given JOHN)- therefore, check BLE US and D-dimer 05/26/16 EKG NSR 83 c 1 AVB, IVCD similar to 08/16/14 05/26/16 normal CXR (2) JOHN (acute kidney injury) Status: Acute Problem Text: Pre-renal due to possible gastroenteritis. GI panel pending. Pt taking PO. Nephrology consulting. - bicarb for acidosis 05/27/16 decrease SM 40 BID (stress dose given hypotensive on admission)-HD pred 5 QD (3) 1St degree AV block Status: Acute Problem Text: Patient remains asx (4) History of renal transplant Status: Chronic Problem Text: on HD regimen x stress steroid (5) Hyperkalemia Status: Acute Problem Text: resolved 05/27 K 4.9 Plan / VTE VTE Prophylaxis Ordered?: Yes Subjective Review of Systems CC/HPI The patient is a 55-year-old male admitted with a reason for visit of Acute Renal Failure. Events since last encounter recurrent anterior chest tightness, worse c deep inspiration c "tingling" sensation B UE, s dyspnea, similar to previous episodes on 05/25, 05/26 Objective Physical Examination General Exam: Positive: Alert, Cooperative, No Acute Distress Eye Exam: Positive: Conjunctiva & lids normal, Negative: Sclera icteric ENT Exam: Positive: Mucous membr. moist/pink Neck Exam: Positive: Supple, Negative: JVD, thyromegaly Chest Exam: Positive: Clear to auscultation, Normal air movement, Negative: Rales, Rhonchi, Wheezing Heart Exam: Positive: Normal S1, Normal S2, Rate Normal, Negative: Murmurs Abdomen Exam: Positive: Normal bowel sounds, Soft, Negative: Hepatospenomegaly, Mass, Tenderness Extremity Exam: Negative: Edema Vital Signs/I&O Vital Signs Date Time Temp Pulse Resp B/P Pulse Ox O2 Delivery O2 Flow Rate FiO2 05/27/16 08:00 95.6 74 18 130/74 100 Room Air I&O- Last 24 Hours up to 6 AM 05/27/16 06:00 Intake Total 3570 ml Output Total 3125 ml Balance 445 ml Laboratory Data Labs 24H Laboratory Tests 2 05/26/16 12:25: Albumin 3.6, Blood Urea Nitrogen 42H, Creatinine 1.26, Sodium Level 140, Potassium Level 5.9H, Chloride Level 117H, Carbon Dioxide Level 13L, Anion Gap 10, Calcium Level 8.4L, Glomerular Filtration Rate > 60.0, Phosphorus Level 1.8# L 05/26/16 17:56: Albumin 3.4, Blood Urea Nitrogen 41H, Creatinine 1.28, Sodium Level 139, Potassium Level 6.2*H, Chloride Level 115H, Carbon Dioxide Level 16L, Anion Gap 8, Calcium Level 8.8, Glomerular Filtration Rate > 60.0, Phosphorus Level 2.1L 05/27/16 05:02: Albumin 3.3, Blood Urea Nitrogen 33H, Creatinine 1.33H, Sodium Level 141, Potassium Level 4.9#, Chloride Level 112H, Carbon Dioxide Level 19L, Anion Gap 10, Calcium Level 8.5, Glomerular Filtration Rate 59.6, Phosphorus Level 2.8#, White Blood Count 7.1, Red Blood Count 3.75L, Hemoglobin 11.7L, Hematocrit 35.8L , Mean Corpuscular Volume 95.4, Mean Corpuscular Hemoglobin 31.1, Mean Corpuscular Hemoglobin Concent 32.6, Red Cell Distribution Width 14.9H, Platelet Count 139L, Neutrophils (%) (Auto) 82.6H, Lymphocytes (%) (Auto) 12.5L , Monocytes (%) (Auto) 3.5, Eosinophils (%) (Auto) 0.5, Basophils (%) (Auto) 0.1 , Neutrophils # (Auto) 5.8, Lymphocytes # (Auto) 0.9L, Monocytes # (Auto) 0.3, Eosinophils # (Auto) 0.0, Basophils # (Auto) 0.0, Large Unclassified Cells # 0.1 , Large Unclassified Cells % 0.8, Lipase 292, Magnesium Level 1.6L CBC/BMP Laboratory Tests 05/26/16 12:25 Anion Gap 10 05/26/16 17:56 Anion Gap 8 05/27/16 05:02 Anion Gap 10, Red Blood Count 3.75 L, Mean Corpuscular Volume 95.4, Mean Corpuscular Hemoglobin 31.1, Mean Corpuscular Hemoglobin Concent 32.6, Red Cell Distribution Width 14.9 H, Neutrophils (%) (Auto) 82.6 H, Lymphocytes (%) (Auto ) 12.5 L, Monocytes (%) (Auto) 3.5, Eosinophils (%) (Auto) 0.5, Basophils (%) ( Auto) 0.1, Neutrophils # (Auto) 5.8, Lymphocytes # (Auto) 0.9 L, Monocytes # ( Auto) 0.3, Eosinophils # (Auto) 0.0, Basophils # (Auto) 0.0 Microbiology Microbiology 05/26/16 Gastrointestinal Tract Panel (PCR) - Final, Complete 05/25/16 Urine Culture - Final, Complete Jack Dove M.D. May 27, 2016 10:39
--- NOTE | 2016-05-27 11:59 | IPNPDOC ---
Date/Time Seen The patient was seen on 05/27/16 at 11:42. Progress Note DATE OF ENCOUNTER: 05/27/2016 SUBJECTIVE: Patient was seen this morning at bedside. No acute overnight issues. He did state that after taking a walk he began to experience this pleuritic type chest pain, otherwise he feels fine. He had some pruritus overnight but that has resolved. He reports that his stool output has decreased and that his stool is more bulky. No blood in the stool. Review of systems is negative for shortness of breath, palpitations, nausea, vomiting, abdominal pain, constipation, headache, dizziness, fever, chills, rash. OBJECTIVE: Vital Signs Date Time Temp Pulse Resp B/P Pulse Ox O2 Delivery O2 Flow Rate FiO2 05/27/16 10:48 20 Room Air 05/27/16 08:00 95.6 74 130/74 100 I&O- Last 24 Hours up to 6 AM 05/27/16 05:59 Intake Total 3270 ml Output Total 3125 ml Balance 145 ml PHYSICAL EXAMINATION: GENERAL APPEARANCE: Patient is alert and oriented 3. In no acute distress. HEENT: Normocephalic, atraumatic. Extraocular muscles are intact. No scleral icterus. Moist mucosa. NECK: Supple. No thyromegaly. Trachea is midline. No jugular venous distention. HEART: Normal S1, S2. Regular rate and rhythm. Systolic ejection murmur heard best in the mitral region. LUNGS: Clear to auscultation bilaterally. No rales, rhonchi or wheezing. ABDOMEN: Soft. Nontender, nondistended. Bowel sounds are present. He has an ileostomy bag present in the right quadrant with brownish stool. Multiple healed surgical scars. EXTREMITIES: Trace hand edema. No cyanosis or significant lower extremity edema. Positive radial and pedal pulses bilaterally. NEUROLOGICAL: No focal deficits. Motor and sensation intact. PSYCHIATRIC: Appropriate mood and affect. LABORATORY DATA: 05/27/16 05:02 Red Blood Count 3.75 L, Mean Corpuscular Volume 95.4, Mean Corpuscular Hemoglobin 31.1, Mean Corpuscular Hemoglobin Concent 32.6, Red Cell Distribution Width 14.9 H, Albumin 3.3, Anion Gap 10, Calcium Level 8.5, Glomerular Filtration Rate 59.6, Phosphorus Level 2.8, Magnesium Level 1.6L MICROBIOLOGY: Urine culture and GI panel were negative. IMAGING: Chest x-ray on 05/25 does not show any acute pulmonary process. Abdomen/ pelvis CT obtained on 05/25 showed the transplant kidney in the right lower quadrant that is unremarkable, no acute changes. ASSESSMENT/PLAN: Mr. Herrera is a 55-year-old male with past medical history significant for polycystic kidney disease status post renal transplant in 2006 currently on immunosuppression medications, history of hemodialysis from [id number] prior to renal transplant, history of diverticulitis status post ileostomy, hypertension, benign prostatic hypertrophy, and gout who presents with high ostomy output, found to have acute kidney injury and electrolyte disturbances. 1. Acute on chronic kidney disease secondary to dehydration and high ostomy output. Further complicated by being on lisinopril while volume depleted. Patient's creatinine has improved but not quite at baseline. Baseline is around 1.1. He does not appear to be dehydrated any longer and fluids have been discontinued. He remains on Imodium and Metamucil for his high output and stool has been more bulky. Anticipate that his renal function will return back to baseline in the next 24-48 hours. 2. Hyperkalemia. Patient is status post calcium gluconate and 2 doses of Kayexalate. His acidosis is probably what is driving the hyperkalemia. His potassium this morning is stable. We will obtain another renal profile at 1400 to reassess his electrolytes. 3. Hyperchloremic metabolic acidosis. This has improved with the bicarbonate fluids he received overnight. Given that he does not appear to be dehydrated any longer, we have discontinued his fluids. We have instead placed him on Bicitra twice daily to help further resolve his acidosis. 4. Hyponatremia secondary to volume depletion. This has resolved with IV hydration. 5. Hypomagnesemia. He has received a mag run. 6. Anemia. This is likely dilutional from the fluids he received. No intervention needed at this time. 7. Polycystic kidney disease status post renal transplant in 2006 currently on prednisone, Prograf, and Myfortic at home. Continue with his home regimen. Solu- Medrol was originally given as stress dosing due to hypotension. It should be tapered back down to his home dose of prednisone. 8. History of diverticulitis status post ostomy. Patient reports that he is supposed to have this reversed next 06/01. He reports that he has a preop clearance this Monday 05/29 in [place] and likely he will be discharged in time for that. 9. Hypertension. Blood pressure is stable. His lisinopril continues to be on hold. 10. History of gout. Allopurinol was held on admission. He is asymptomatic. GME ATTESTATION GME ATTESTATION My preceptor for this patient encounter was physically present in the building during the encounter and was fully available. As needed, all aspects of the patient interview, examination, medical decision making process, and medical care plan development were reviewed and approved by the preceptor. Preceptor is aware and concurs with the plan as stated in the body of this note and will attest to such by his/her cosignature. ATTENDING NOTE Pt examined with the resident during work rounds. Renal function and electrolytes are improving. I agree with the above assessment and recommendations. SHILA SILVA DO May 27, 2016 11:59 MALLORY GANDARA MD May 28, 2016 12:05
[2016-05-27] MEDS: BICITRA 30ML SOLN UDC PO SCH ×2 (12:06→20:11)
[2016-05-27] MEDS: DICLOFENAC EPOLAMINE 1.3 % PATCH TOP SCH ×2 (12:07→20:11)
--- NOTE | 2016-05-27 13:50 | REP ---
Duplex extremity venous ultrasound: Bilateral lower extremities. History: Chest pain. Findings: The deep veins are anechoic and fully compressible from the groin to the popliteal fossa in the right and left lower extremity. Color flow imaging is homogeneous. Spectral Doppler interrogation demonstrates intact respiratory variation in flow and normal manual augmentation of flow. There is no evidence of deep vein thrombosis. Impression: Negative bilateral lower extremity duplex venous ultrasound. No evidence of deep vein thrombosis. Signed by Quintin Moore MD 05/27/2016 02:38 P
[2016-05-27 16:38] LABS: ALBUMIN 3.3 GM/DL (3.2-5.2); ANION GAP 9 MEQ/L (8-16); BLOOD UREA NITROGEN 36 MG/DL (7-18); CALCIUM LEVEL 8.5 MG/DL (8.5-10.1); CARBON DIOXIDE LEVEL 21 MEQ/L (21-32); CHLORIDE LEVEL 111 MEQ/L (98-107); CREATININE FOR GFR 1.31 MG/DL (0.70-1.30); GLOMERULAR FILTRATION RATE > 60.0 (>56); GLUCOSE, FASTING 329 MG/DL (70-105); PHOSPHORUS LEVEL 2.1 MG/DL (2.5-4.9); SODIUM LEVEL 141 MEQ/L (136-145)
[2016-05-28 05:34] VITALS: BP 156/87
[2016-05-28 05:37] LABS: BASO % 0.1 % (0.0-1.0); EOS % 0.1 % (0.0-3.0); LARGE UNSTAINED CELL # 0.1 K/mm3 (0.0-0.4); LARGE UNSTAINED CELL % 1.3 % (0.0-4.0); LYMPH # 1.2 K/mm3 (1.5-4.5); LYMPH % 12.3 % (24.0-44.0); MEAN CORPUSCULAR HEMOGLOBIN 31.8 pg (27.0-33.0); MEAN CORPUSCULAR HGB CONC 32.1 g/dl (32.0-36.5); MONO # 0.4 K/mm3 (0.0-0.8); MONO % 4.7 % (0.0-5.0); NEUTROPHILS # 7.3 K/mm3 (1.8-7.7); NEUTROPHILS % 81.5 % (36.0-66.0); PLATELET COUNT, AUTOMATED 145 k/mm3 (150-450); RED CELL DISTRIBUTION WIDTH 15.8 % (11.5-14.5)
[2016-05-28 05:46] LABS: ALBUMIN 3.3 GM/DL (3.2-5.2); ANION GAP 7 MEQ/L (8-16); BLOOD UREA NITROGEN 31 MG/DL (7-18); CALCIUM LEVEL 9.1 MG/DL (8.5-10.1); CARBON DIOXIDE LEVEL 22 MEQ/L (21-32); CHLORIDE LEVEL 115 MEQ/L (98-107); CREATININE FOR GFR 1.16 MG/DL (0.70-1.30); GLOMERULAR FILTRATION RATE > 60.0 (>56); GLUCOSE, FASTING 154 MG/DL (70-105); MAGNESIUM LEVEL 1.9 MG/DL (1.8-2.4); PHOSPHORUS LEVEL 2.3 MG/DL (2.5-4.9); POTASSIUM SERUM 4.9 MEQ/L (3.5-5.1); SODIUM LEVEL 144 MEQ/L (136-145)
[2016-05-28] MEDS: methylPREDNISolone INJ 125 MG/2 ML VIAL (J2930) IV SCH (05:46)
[2016-05-28] MEDS: LOPERAMIDE 2 MG CAP PO SCH (07:54)
[2016-05-28] MEDS: TACROLIMUS 1 MG CAP (J7507) PO SCH (07:54)
[2016-05-28] MEDS: FINASTERIDE 5 MG TAB PO SCH (07:54)
[2016-05-28] MEDS: BICITRA 30ML SOLN UDC PO SCH (07:54)
[2016-05-28] MEDS: METAMUCIL (PSYLLIUM) PACKET PO SCH (07:54)
[2016-05-28 08:00] VITALS: BP 165/81
[2016-05-28] MEDS: DICLOFENAC EPOLAMINE 1.3 % PATCH TOP SCH (08:43)
[2016-05-28] MEDS: HEPARIN SOD (PORCINE) 5000 UNITS/ML VIAL SC SCH (08:43)
[2016-05-28] MEDS ORDERED: predniSONE 5 MG TAB PO SCH (09:00)
--- NOTE | 2016-05-28 09:56 | ECGEPIP ---
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
[2016-05-28] MEDS ORDERED: SODIUM PHOSPHATE INJ 20 MMOL in D5W 250 ML IV ONE (11:00)
[2016-05-28 11:41] VITALS: BP 165/78
[2016-05-28] MEDS ORDERED: LOPE2CA PO (12:41)
[2016-05-28] MEDS ORDERED: BICI30EL PO (12:41)
[2016-05-28] MEDS ORDERED: METAPKT PO (12:48)
--- NOTE | 2016-05-28 13:35 | EDDOCDS ---
Physician Documentation [facility] Name: Ramos Herrera Age: 55 yrs Sex: Male : 1960 Arrival Date: 05/25/2016 Time: 18:28 Bed Admit Hold Private MD: Pepe Mortensen MD Disposition: 05/26/16 01:02 Hospitalization ordered by Naseem Baker for Inpatient Admission. Preliminary diagnosis are Acute kidney failure, Kidney transplant status. - Bed requested for PCU. - Status is Inpatient Admission. dy - Condition is Stable. - Problem is an ongoing problem. - Symptoms have improved. Historical: - Allergies: SULFA (SULFONAMIDES) (Hives); - Home Meds: 1. allopurinol 300 mg Oral tab once daily 2. aspirin 81 mg Oral chew 1 tab mon, wed,fri 3. finasteride 5 mg oral tab 1 tab once daily 4. lisinopril 10 mg Oral tab 1 tab once daily 5. Myfortic 360 mg oral TbEC 2 times per day 6. prednisone 5 mg Oral tab 1 tab once daily 7. Prograf 1 mg oral cap 3 cap daily 8. Zofran (as hydrochloride) 4 mg Oral tab - PMHx: Polycystic Kidney Disease; Renal Failure w/o Dialysis; Diverticulitis; - PSHx: Kidney Transplant- Right; Colostomy Construction; - Social history: Smoking status: Patient states was never smoker of tobacco. No barriers to communication noted, The patient speaks fluent Serbian, Speaks appropriately for age. - Family history: Not pertinent. - : The pt / caregiver states he / she is not on anticoagulants. Home medication list is obtained from the patient. - Exposure Risk Screening:: None identified. Vital Signs: 05/25 18:30 BP 102 / 48; Pulse 98; Resp 18 S; Temp 96.7(O); Pulse Ox 99% on R/A; Weight 102.97 kg / gr2 227.01 lbs (R); Height 6 ft. 2 in. (187.96 cm) (R); Pain 6/10; 19:07 Pulse 86 MON; Pulse Ox 98% ; cf2 19:07 BP 91 / 52 (auto/); cf2 19:07 Temp 98.0; Pain 0/10; cf2 19:15 Pulse 91 MON; Pulse Ox 98% ; cf2 19:15 BP 84 / 49 (auto/); cf2 19:26 Pulse 84 MON; Pulse Ox 99% ; cf2 19:26 BP 95 / 48 (auto/); cf2 19:30 Pulse 84 MON; Pulse Ox 99% ; cf2 19:30 BP 90 / 53 (auto/); cf2 19:45 Pulse 88 MON; Pulse Ox 99% ; cf2 19:45 BP 116 / 56 (auto/); cf2 20:00 Pulse 85 MON; Pulse Ox 99% ; cf2 20:00 BP 116 / 54 (auto/); cf2 20:15 Pulse 83 MON; Pulse Ox 97% ; cf2 20:15 BP 117 / 57 (auto/); cf2 20:30 Pulse 80 MON; Pulse Ox 99% ; cf2 20:30 BP 121 / 58 (auto/); cf2 20:45 Pulse 84 MON; Pulse Ox 98% ; cf2 20:45 BP 114 / 56 (auto/); cf2 21:00 Pulse 85 MON; Pulse Ox 98% ; cf2 21:00 BP 207 / 91 (auto/); cf2 21:15 Pulse 87 MON; Pulse Ox 98% ; cf2 21:15 BP 140 / 62 (auto/); cf2 21:30 Pulse 92 MON; Pulse Ox 98% ; cf2 21:30 BP 196 / 112 (auto/); cf2 21:45 Pulse 89 MON; Pulse Ox 96% ; cf2 21:45 BP 148 / 64 (auto/); cf2 22:00 Pulse 91 MON; Pulse Ox 98% ; cf2 22:00 BP 102 / 58 (auto/); cf2 22:15 Pulse 83 MON; Pulse Ox 98% ; cf2 22:15 BP 103 / 55 (auto/); cf2 22:38 Pulse 88 MON; Pulse Ox 98% ; cf2 22:38 BP 127 / 60 (auto/); cf2 22:39 Pulse 86 MON; Pulse Ox 98% ; cf2 22:39 BP 115 / 55 (auto/); cf2 22:45 Pulse 85 MON; Pulse Ox 98% ; cf2 22:45 BP 112 / 57 (auto/); cf2 23:39 Pulse 88 MON; Pulse Ox 98% ; cf2 23:39 BP 121 / 56 (auto/); cf2 05/26 00:03 Pulse 91 MON; cf2 00:03 BP 138 / 61 (auto/); cf2 00:04 Pulse 87 MON; Pulse Ox 99% ; cf2 00:26 Pulse 87 MON; Pulse Ox 98% ; cf2 00:30 Pulse 88 MON; cf2 00:30 BP 129 / 78 (auto/); cf2 01:00 Pulse 88 MON; cf2 01:00 BP 135 / 63 (auto/); cf2 01:30 Pulse 90 MON; Pulse Ox 99% ; cf2 01:30 BP 145 / 67 (auto/); cf2 02:00 Pulse 91 MON; cf2 02:00 BP 127 / 57 (auto/); cf2 02:30 Pulse 90 MON; cf2 02:30 BP 111 / 53 (auto/); cf2 03:00 Pulse 97 MON; cf2 03:00 BP 197 / 102 (auto/); cf2 04:00 Pulse 88 MON; cf2 04:00 BP 113 / 54 (auto/); cf2 05:20 Pulse 84 MON; Pulse Ox 98% ; cf2 07:18 Pulse 90 MON; Pulse Ox 98% ; pml 07:18 BP 135 / 72 (auto/); pml 05/25 18:30 Body Mass Index 29.14 (102.97 kg, 187.96 cm) gr2 MDM: 05/25 18:31 Heading Machine Operator/Pulse Ox/q 30 min VS ordered. sd1 18:31 IV Saline Lock ordered. sd1 18:31 Rhythm Strip to chart ordered. sd1 18:31 Undress patient appropriately for examination ordered. sd1 18:32 Basic Metabolic Profile Ordered. EDMS 18:32 CBC with Diff Ordered. EDMS 18:32 Cardiac Injury Profile Ordered. EDMS 18:32 Troponin Ordered. EDMS 18:32 portable chest Ordered. EDMS 18:32 ECG WITH READING ER PHYS+CARDIAG ordered. EDMS 19:11 LR Solution 1000 ml IV at bolus once ordered. mm11 19:12 Partial Thromboplastin Time Ordered. EDMS 19:12 Prothrombin Time Profile\E\INR Ordered. EDMS 19:12 Urinalysis Ordered. EDMS 19:12 Lactic Acid (Jim tube on ice) Ordered. EDMS 19:12 Urine Culture Ordered. EDMS 19:12 NOTHING BY MOUTH+DIET ordered. EDMS 19:12 Venous Blood Gas (large pea green tube on ice) Ordered. EDMS 19:37 AMYLASE Ordered. EDMS 19:37 LIPASE Ordered. EDMS 19:37 LIVER PROFILE Ordered. EDMS 20:02 CBC with Diff Reviewed. mm11 20:02 Partial Thromboplastin Time Reviewed. mm11 20:02 Prothrombin Time Profile\E\INR Reviewed. mm11 20:02 Lactic Acid (Jim tube on ice) Reviewed. mm11 20:02 Misc. Nursing Order ordered. mm11 20:02 NS 0.9% 1000 ml IV at bolus once ordered. mm11 20:17 Basic Metabolic Profile Reviewed. mm11 20:17 Cardiac Injury Profile Reviewed. mm11 20:17 Venous Blood Gas (large pea green tube on ice) Reviewed. mm11 20:17 LIPASE Reviewed. mm11 20:17 Troponin Reviewed. mm11 20:17 AMYLASE Reviewed. mm11 20:17 LIVER PROFILE Reviewed. mm11 20:17 portable chest Reviewed. mm11 21:28 portable chest Reviewed. mm11 21:36 NS 0.9% 1000 ml IV at bolus once ordered. mm11 21:36 Polystyrene Suspension 15 grams PO once ordered. mm11 21:37 CT ABD & PELVIS: No Contrast Ordered. EDMS 21:44 Urinalysis Reviewed. mm11 22:19 EKG-ADULT Reviewed. mm11 23:19 NS 0.9% 1000 ml IV at bolus once ordered. mm11 23:52 GASTROINTESTINAL (GI) PANEL Ordered. EDMS 05/26 00:26 Financial registration complete. slh 00:47 NS 0.9% 1000 ml IV at 250 mL/hr continuous ordered. mm11 00:48 [facility] Payment Agreement was scanned into [employer] and attached to record. slh 00:48 [facility] [employer] ordered. mm11 00:48 BED REQUEST+ADM ordered. EDMS 00:51 [facility] [employer] complete. tmm1 01:13 Prograf 3 mg PO once; administer on an empty stomach ordered. mm11 01:13 Myfortic Delayed Release Tablet 360 mg PO once ordered. mm11 02:53 Written Provider Order was scanned into [employer] and attached to record. tmm1 02:54 RENAL PROFILE Ordered. EDMS 02:54 MAGNESIUM LEVEL Ordered. EDMS 02:54 CBC WITH DIFFERENTIAL Ordered. EDMS 02:54 LIPASE Ordered. EDMS 02:58 Admission / Observation Status ordered. EDMS 02:58 ELECTROCARDIOGRAM ADULT ordered. EDMS 02:59 OTHER CUSTOM DIETS ordered. EDMS 06:36 RENAL PROFILE Reviewed. mm11 06:36 CBC WITH DIFFERENTIAL Reviewed. mm11 06:36 LIPASE Reviewed. mm11 06:36 GASTROINTESTINAL (GI) PANEL Reviewed. mm11 06:36 MAGNESIUM LEVEL Reviewed. mm11 06:36 CT ABD & PELVIS: No Contrast Reviewed. mm11 09:15 T-Sheet-- Draft Copy was scanned into [employer] and attached to record. 11:40 RENAL PROFILE Ordered. EDMS 14:34 ECG/EKG was scanned into [employer] and attached to record. gb Administered Medications: 05/25 19:30 Drug: LR 1000 ml [lactated ringers intravenous solution] Route: IV; Rate: bolus; Site: cf2 left antecubital; 20:10 Drug: NS 0.9% 1000 ml [sodium chloride 0.9 % intravenous solution] Route: IV; Rate: cf2 bolus; Site: left antecubital; 21:45 Drug: NS 0.9% 1000 ml [sodium chloride 0.9 % intravenous solution] Route: IV; Rate: cf2 bolus; Site: left antecubital; 21:45 Drug: Polystyrene 15 grams [sodium polystyrene sulfonate 15 gram/60 mL oral suspension cf2 (1200 drps)] Route: PO; 23:41 Drug: NS 0.9% 1000 ml [sodium chloride 0.9 % intravenous solution] Route: IV; Rate: sls1 bolus; Site: left antecubital; 05/26 02:53 Drug: Prograf 3 mg Route: PO; cf2 02:53 Drug: Myfortic Delayed Release Tablet 360 mg Route: PO; cf2 02:54 Drug: NS 0.9% 1000 ml [sodium chloride 0.9 % intravenous solution] Route: IV; Rate: 250 cf2 mL/hr; Site: left antecubital; Signatures: Dispatcher [employer] EDWY Kristy Mccarty MD MD sd1 Mirtha Bunch, Reg Reg gb Naseem Lujan RN Alpesh Patel RN RN mlb1 Felton Franklin DO DO mm11 Sandra Regla, COMPUTER NETWORKING INSTRUCTOR ADJUNCT COMPUTER NETWORKING INSTRUCTOR ADJUNCT tmm1 Vandana Ames Tiffanie Vazquez RN RN cf2 Martin Loja RN RN sa Strong, Shannon RN sls1 The chart was reviewed and I authenticate all verbal orders and agree with the evaluation and treatment provided.Corrections: (The following items were deleted from the chart) 05/25 19:37 19:12 AMYLASE+LAB ordered. EDMS EDMS 19:37 19:12 LIPASE+LAB ordered. EDMS EDMS :37 19:12 LIVER PROFILE+LAB ordered. EDMS EDMS 23:52 23:51 GASTROINTESTINAL (GI) PANEL+JAM ordered. EDMS EDMS 05/26 03:01 00:53 BASIC METABOLIC PROFILE ordered. EDMS EDMS Attachments: 00:48 [facility] Payment Agreement [facility] 02:53 Written Provider Order tmm1 09:15 T-Sheet-- Draft Copy gb 14:34 ECG/EKG gb Chart Complete MTDD
--- NOTE | 2016-05-28 13:35 | EDDOCDS ---
Nurse's Notes [facility] Name: Jada Lorenzana Age: 55 yrs Sex: Male : 1960 Arrival Date: 05/25/2016 Time: 18:28 Bed Admit Hold Private MD: Pepe Mortensen MD Diagnosis: Acute kidney failure;Kidney transplant status Presentation: 05/25 18:35 Presenting complaint: Patient states: Chest pain began two hours ago radiating to mlb1 bilateral arms. Aspirin was not taken prior to arrival. Adult Sepsis Screening: The patient does not have new or worsening altered mentation. Patient's respiratory rate is less than 22. Systolic blood pressure is greater than 100. Patient has a qSOFA score of 0- Negative Sepsis Screen. Suicide/Homicide risk assessment- the patient denies having any suicidal and/or homicidal ideations and does not present with any other emotional, behavioral or mental health complaints. 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 Transition of care: patient was not received from another setting of care. 18:35 Acuity: LEVON Level 2 mlb1 18:35 Method Of Arrival: Walkin/Carried/Asstd mlb1 Triage Assessment: 18:39 General: Appears in no apparent distress, Behavior is appropriate for age, cooperative. mlb1 Pain: Location: mid-sternal area Pain At worst was 5 out of 10 on a pain scale. Pain radiates to right arm and left arm. HIV screening NA for this visit Offered previously. Respiratory: No deficits noted. 05/26 05:01 Cardiovascular: Chest pain is described as vague, radiates episodes are intermittent cf2 began 30 minutes prior to arrival Historical: - Allergies: SULFA (SULFONAMIDES) (Hives); - Home Meds: 1. allopurinol 300 mg Oral tab once daily 2. aspirin 81 mg Oral chew 1 tab mon, wed,fri 3. finasteride 5 mg oral tab 1 tab once daily 4. lisinopril 10 mg Oral tab 1 tab once daily 5. Myfortic 360 mg oral TbEC 2 times per day 6. prednisone 5 mg Oral tab 1 tab once daily 7. Prograf 1 mg oral cap 3 cap daily 8. Zofran (as hydrochloride) 4 mg Oral tab - PMHx: Polycystic Kidney Disease; Renal Failure w/o Dialysis; Diverticulitis; - PSHx: Kidney Transplant- Right; Colostomy Construction; - Social history: Smoking status: Patient states was never smoker of tobacco. No barriers to communication noted, The patient speaks fluent German, Speaks appropriately for age. - Family history: Not pertinent. - : The pt / caregiver states he / she is not on anticoagulants. Home medication list is obtained from the patient. - Exposure Risk Screening:: None identified. Screenin/19 19:01 Screening information is obtained from the patient. Fall risk: No risks identified. cf2 Assistance ADL's: requires no assistance with activities of daily living. Abuse/DV Screen: The patient / caregiver reports he/she is: not in a situation that causes fear, pain or injury. Nutritional screening: No deficits noted. Advance Directives: Further advance directive information is declined. home support is adequate. Assessment: 19:01 Adult Sepsis Screening: The patient does not have new or worsening altered mentation. cf2 Patient's respiratory rate is less than 22. Systolic blood pressure is greater than 100. Patient has a qSOFA score of 0- Negative Sepsis Screen. General: Appears in no apparent distress, comfortable, Behavior is appropriate for age, cooperative. Pain: Denies pain. Neurological: No deficits noted. EENT: No deficits noted. Cardiovascular: Rhythm is sinus rhythm No ectopy. Respiratory: No deficits noted. GI: No deficits noted. Abdomen is flat, non- distended colostomy. : No deficits noted. Derm: No deficits noted. Musculoskeletal: No deficits noted. 19:07 Reassessment: Patient denies pain at this time. cf2 21:00 Reassessment: Patient denies pain at this time. cf2 23:00 General: Patient resting comfortably. Offers no complaints at present time. MD spoke cf2 with patient in regards to decreased kidney function. Patient with significant other crying, Patient requests that transplant team be called and made aware of condition. MD agrees to call transplant team.. 05/26 01:00 General: Patient resting comfortably offers no complaints at present time . cf2 03:00 General: Patient with hospitalist. [place] with no beds at present time. Offers no cf2 complaints. Eating dinner tray. 05:05 General: Unable to get bed assignment. Patient moved to room 17 and made comfortable. cf2 Offers no complaints at present time . 07:19 General: Appears in no apparent distress, comfortable, Behavior is appropriate for age, pml cooperative. Pain: Denies pain. Neurological: Level of Consciousness is awake, alert, Oriented to person, place, time. Cardiovascular: Capillary refill < 3 seconds Rhythm is sinus rhythm No ectopy. Respiratory: Airway is patent Respiratory effort is even, unlabored, Respiratory pattern is regular, symmetrical. Derm: Skin is pink, warm & dry. Vital Signs: 05/25 18:30 BP 102 / 48; Pulse 98; Resp 18 S; Temp 96.7(O); Pulse Ox 99% on R/A; Weight 102.97 kg gr2 (R); Height 6 ft. 2 in. (187.96 cm) (R); Pain 6/10; 19:07 Pulse 86 MON; Pulse Ox 98% ; cf2 19:07 BP 91 / 52 (auto/); cf2 19:07 Temp 98.0; Pain 0/10; cf2 19:15 Pulse 91 MON; Pulse Ox 98% ; cf2 19:15 BP 84 / 49 (auto/); cf2 19:26 Pulse 84 MON; Pulse Ox 99% ; cf2 19:26 BP 95 / 48 (auto/); cf2 19:30 Pulse 84 MON; Pulse Ox 99% ; cf2 19:30 BP 90 / 53 (auto/); cf2 19:45 Pulse 88 MON; Pulse Ox 99% ; cf2 19:45 BP 116 / 56 (auto/); cf2 20:00 Pulse 85 MON; Pulse Ox 99% ; cf2 20:00 BP 116 / 54 (auto/); cf2 20:15 Pulse 83 MON; Pulse Ox 97% ; cf2 20:15 BP 117 / 57 (auto/); cf2 20:30 Pulse 80 MON; Pulse Ox 99% ; cf2 20:30 BP 121 / 58 (auto/); cf2 20:45 Pulse 84 MON; Pulse Ox 98% ; cf2 20:45 BP 114 / 56 (auto/); cf2 21:00 Pulse 85 MON; Pulse Ox 98% ; cf2 21:00 BP 207 / 91 (auto/); cf2 21:15 Pulse 87 MON; Pulse Ox 98% ; cf2 21:15 BP 140 / 62 (auto/); cf2 21:30 Pulse 92 MON; Pulse Ox 98% ; cf2 21:30 BP 196 / 112 (auto/); cf2 21:45 Pulse 89 MON; Pulse Ox 96% ; cf2 21:45 BP 148 / 64 (auto/); cf2 22:00 Pulse 91 MON; Pulse Ox 98% ; cf2 22:00 BP 102 / 58 (auto/); cf2 22:15 Pulse 83 MON; Pulse Ox 98% ; cf2 22:15 BP 103 / 55 (auto/); cf2 22:38 Pulse 88 MON; Pulse Ox 98% ; cf2 22:38 BP 127 / 60 (auto/); cf2 22:39 Pulse 86 MON; Pulse Ox 98% ; cf2 22:39 BP 115 / 55 (auto/); cf2 22:45 Pulse 85 MON; Pulse Ox 98% ; cf2 22:45 BP 112 / 57 (auto/); cf2 23:39 Pulse 88 MON; Pulse Ox 98% ; cf2 23:39 BP 121 / 56 (auto/); cf2 05/26 00:03 Pulse 91 MON; cf2 00:03 BP 138 / 61 (auto/); cf2 00:04 Pulse 87 MON; Pulse Ox 99% ; cf2 00:26 Pulse 87 MON; Pulse Ox 98% ; cf2 00:30 Pulse 88 MON; cf2 00:30 BP 129 / 78 (auto/); cf2 01:00 Pulse 88 MON; cf2 01:00 BP 135 / 63 (auto/); cf2 01:30 Pulse 90 MON; Pulse Ox 99% ; cf2 01:30 BP 145 / 67 (auto/); cf2 02:00 Pulse 91 MON; cf2 02:00 BP 127 / 57 (auto/); cf2 02:30 Pulse 90 MON; cf2 02:30 BP 111 / 53 (auto/); cf2 03:00 Pulse 97 MON; cf2 03:00 BP 197 / 102 (auto/); cf2 04:00 Pulse 88 MON; cf2 04:00 BP 113 / 54 (auto/); cf2 05:20 Pulse 84 MON; Pulse Ox 98% ; cf2 07:18 Pulse 90 MON; Pulse Ox 98% ; pml 07:18 BP 135 / 72 (auto/); pml 05/25 18:30 Body Mass Index 29.14 (102.97 kg, 187.96 cm) gr2 Vitals: 05/25 18:30 Log In Time: May 25, 2016 at 18:30. gr2 18:32 RN notified that patient meets Red Flag criteria. gr2 ED Course: 18:30 Patient visited by Laith Posadas. gr2 18:30 Pepe Mortensen is Private Physician. gr2 18:30 Patient moved to Waiting gr2 18:31 Patient visited by Laith Posadas. gr2 18:32 Patient visited by Laith Posadas. gr2 18:32 Patient moved to Pre RCE gr2 18:32 Patient moved to PD2 / 27 ead 18:34 Anne Posadas, RN is Primary Nurse. gr2 18:34 Patient moved to 2 gr2 18:36 Triage Initiated mlb1 19:01 Basic Metabolic Profile Sent. kc3 19:01 CBC with Diff Sent. kc3 19:01 Cardiac Injury Profile Sent. kc3 19:01 Troponin Sent. kc3 19:01 EKG done. (by ED staff). Reviewed by Whitney ROOT. jrd 19:01 Inserted saline lock: 18 gauge in right antecubital area and blood collected. No cf2 procedures done that require assistance. 19:02 Patient visited by Coy Rosales PCA. jrd 19:03 Felton Franklin DO is Attending Physician. mm11 19:03 Patient visited by Felton Franklin DO. mm11 19:17 Primary Nurse role handed off by Anne Posadas, SARAH cf2 19:17 Tiffanie Jurado,SARAH is Primary Nurse. cf2 19:17 Patient visited by Tiffanie Jurado,SARAH. cf2 19:30 Venous Blood Gas (large pea green tube on ice) Sent. cf2 19:30 Lactic Acid (Jim tube on ice) Sent. cf2 19:32 Patient visited by Felton Franklin DO. mm11 20:02 The patient / caregiver is instructed regarding the plan of care and ED course. Patient sls1 has correct armband on for positive identification. Placed in gown. Bed in low position. Call light in reach. Side rails up X2. environmental monitoring technician on. Pulse ox on. NIBP on. Notified attending ED physician of Critical lab value. 20:05 portable chest Returned. EDMS 20:28 Patient visited by Tiffanie Jurado,SARAH. cf2 20:31 Patient visited by Tiffanie Jurado RN. cf2 21:04 portable chest Returned. EDMS 21:17 Patient visited by Tiffanie Jurado RN. cf2 21:17 Patient visited by Tiffanie Jurado RN. cf2 21:40 Patient visited by Tiffanie Jurado RN. cf2 21:59 EKG-ADULT Returned. EDMS 22:09 Patient visited by Tiffanie Jurado RN. cf2 22:34 Patient visited by Tiffanie Jurado RN. cf2 23:06 CT ABD & PELVIS: No Contrast Returned. EDMS 23:10 Patient visited by Barbra Shah,. dk 05/26 00:04 Patient visited by Tiffanie Jurado RN. cf2 00:48 [facility] Payment Agreement was scanned into [employer] and attached to record. [facility] 01:01 Naseem Baker MD is Hospitalizing Provider. mm11 02:53 Patient visited by Tiffanie Jurado RN. cf2 02:53 Written Provider Order was scanned into [employer] and attached to record. tmm1 04:03 Patient moved to Admit Hold tmm1 04:26 Patient visited by Tiffanie Jurado RN. cf2 04:45 Patient moved to 17 sls1 04:45 Patient moved to Admit Hold sls1 04:56 Patient visited by Tiffanie Jurado RN. cf2 05:23 Patient visited by Tiffanie Jurado RN. cf2 07:20 Patient visited by Anne Flynn RN. pml 07:22 EKG done. (by ED staff). jrd 07:29 Patient visited by Coy Rosales PCA. jrd 07:43 Patient visited by Coy Rosales PCA. jrd 07:58 Patient moved to 20 rn1 08:59 Patient moved to Admit Hold dy 09:15 T-Sheet-- Draft Copy was scanned into [employer] and attached to record. gb 14:34 ECG/EKG was scanned into [employer] and attached to record. gb Administered Medications: 05/25 19:30 Drug: LR 1000 ml [lactated ringers intravenous solution] Route: IV; Rate: bolus; Site: cf2 left antecubital; 20:10 Drug: NS 0.9% 1000 ml [sodium chloride 0.9 % intravenous solution] Route: IV; Rate: cf2 bolus; Site: left antecubital; 21:45 Drug: NS 0.9% 1000 ml [sodium chloride 0.9 % intravenous solution] Route: IV; Rate: cf2 bolus; Site: left antecubital; 21:45 Drug: Polystyrene 15 grams [sodium polystyrene sulfonate 15 gram/60 mL oral suspension cf2 (1200 drps)] Route: PO; 23:41 Drug: NS 0.9% 1000 ml [sodium chloride 0.9 % intravenous solution] Route: IV; Rate: sls1 bolus; Site: left antecubital; 05/26 02:53 Drug: Prograf 3 mg Route: PO; cf2 02:53 Drug: Myfortic Delayed Release Tablet 360 mg Route: PO; cf2 02:54 Drug: NS 0.9% 1000 ml [sodium chloride 0.9 % intravenous solution] Route: IV; Rate: 250 cf2 mL/hr; Site: left antecubital; Intake: 07:27 From [employer] jrd Output: 00:17 Urine: 400.00ml (Voided); Stool: 300 (Loose Stool) ; Total: 400.00ml. sls1 07:27 Urine: 420.00ml (Voided); Stool: 420.00ml (Loose Stool); Total: 1240.00ml. jrd 07:27 From [employer] jrd Order Results: Lab Order: Basic Metabolic Profile; SPEC'M 05/25/16 18:57 Test: GLUCOSE, FASTING; Value: 109; Range: 70-105; Abnormal: Above high normal; Units: MG/DL; Status: F Test: BLOOD UREA NITROGEN; Value: 59; Range: 7-18; Abnormal: Above high normal; Units: MG/DL; Status: F Test: CREATININE FOR GFR; Value: 1.77; Range: 0.70-1.30; Abnormal: Above high normal; Units: MG/DL; Status: F Test: GLOMERULAR FILTRATION RATE; Value: 42.9; Range: >56; Abnormal: Below low normal; Status: F Test: SODIUM LEVEL; Value: 135; Range: 136-145; Abnormal: Below low normal; Units: MEQ/L; Status: F Test: POTASSIUM SERUM; Value: 6.2; Range: 3.5-5.1; Abnormal: Above upper panic limits; Units: MEQ/L; Status: F Test: CHLORIDE LEVEL; Value: 109; Range: 98-107; Abnormal: Above high normal; Units: MEQ/L; Status: F Test: CARBON DIOXIDE LEVEL; Value: 18; Range: 21-32; Abnormal: Below low normal; Units: MEQ/L; Status: F Test: ANION GAP; Value: 8; Range: 8-16; Units: MEQ/L; Status: F Test: CALCIUM LEVEL; Value: 9.6; Range: 8.5-10.1; Units: MG/DL; Status: F Test Note: ; Units are mL/min/1.73 m2 Chronic Kidney Disease Staging per NKF: Stage I & II GFR >=60 Normal to Mildly Decreased Stage III GFR 30-59 Moderately Decreased Stage IV GFR 15-29 Severely Decreased Stage V GFR <15 Very Little GFR Left ESRD GFR <15 on TURRET LATHE SET UP OPERATOR Lab Order: CBC with Diff; SPEC'M 05/25/16 18:57 Test: WHITE BLOOD COUNT; Value: 10.0; Range: 4.0-10.0; Units: K/mm3; Status: F Test: RED BLOOD COUNT; Value: 4.43; Range: 4.30-6.10; Units: M/mm3; Status: F Test: HEMOGLOBIN; Value: 14.0; Range: 14.0-18.0; Units: g/dl; Status: F Test: HEMATOCRIT; Value: 41.0; Range: 42.0-52.0; Abnormal: Below low normal; Units: %; Status: F Test: MEAN CORPUSCULAR VOLUME; Value: 92.6; Range: 80.0-96.0; Units: fl; Status: F Test: MEAN CORPUSCULAR HEMOGLOBIN; Value: 31.7; Range: 27.0-33.0; Units: pg; Status: F Test: MEAN CORPUSCULAR HGB CONC; Value: 34.3; Range: 32.0-36.5; Units: g/dl; Status: F Test: RED CELL DISTRIBUTION WIDTH; Value: 14.8; Range: 11.5-14.5; Abnormal: Above high normal; Units: %; Status: F Test: PLATELET COUNT, AUTOMATED; Value: 199; Range: 150-450; Units: k/mm3; Status: F Test: NEUTROPHILS %; Value: 55.5; Range: 36.0-66.0; Units: %; Status: F Test: LYMPH %; Value: 32.6; Range: 24.0-44.0; Units: %; Status: F Test: MONO %; Value: 6.6; Range: 0.0-5.0; Abnormal: Above high normal; Units: %; Status: F Test: EOS %; Value: 2.4; Range: 0.0-3.0; Units: %; Status: F Test: BASO %; Value: 0.3; Range: 0.0-1.0; Units: %; Status: F Test: LARGE UNSTAINED CELL %; Value: 2.7; Range: 0.0-4.0; Units: %; Status: F Test: NEUTROPHILS #; Value: 5.6; Range: 1.8-7.7; Units: K/mm3; Status: F Test: LYMPH #; Value: 3.3; Range: 1.5-4.5; Units: K/mm3; Status: F Test: MONO #; Value: 0.7; Range: 0.0-0.8; Units: K/mm3; Status: F Test: EOS #; Value: 0.2; Range: 0.0-0.50; Units: K/mm3; Status: F Test: BASO #; Value: 0.0; Range: 0.0-0.2; Units: K/mm3; Status: F Test: LARGE UNSTAINED CELL #; Value: 0.3; Range: 0.0-0.4; Units: K/mm3; Status: F Lab Order: Cardiac Injury Profile; SPEC'M 05/25/16 18:57 Test: CPK CREATINE PHOSPHOKINASE; Value: 62; Range: 39-308; Units: U/L; Status: F Test: CK-MB VALUE MASS; Value: 3.0; Range: 0.0-3.6; Units: NG/ML; Status: F Test: MB/CK RELATIVE INDEX; Value: 4.83; Range: < OR =4; Abnormal: Above high normal; Status: F Test Note: ; DIAGNOSIS CRITERIA MMB ng/ml Relative Index (RI) NON-AMI < or = 5 N/A JIM ZONE > 5 < or = 4 AMI > 5 > 4 Lab Order: Troponin; [facility] 05/25/16 18:57 Test: TROPONIN I; Value: < 0.02; Range: < 0.10; Units: NG/ML; Status: F Test Note: ; Troponin I Reference Interval for [employer] LOCI: 99th Percentile= 0.00-0.045 ng/ml Risk Stratification: <= 0.10 ng/ml Decreased Risk for Adverse Clinical Events. 0.10-1.50 ng/ml Increased Risk for Adverse Clinical Events. Evaluation of additional criterion and/or repeat testing in 2-6 hours is suggested to rule out myocardial damage. >= 1.50 ng/ml Indicative of Myocardial Injury. Lab Order: Partial Thromboplastin Time; [facility] 05/25/16 19:24 Test: PARTIAL THROMBOPLASTIN TIME; Value: 34.4; Range: 26.6-37.1; Units: SECONDS; Status: F Lab Order: Prothrombin Time Profile\E\INR; [facility] 05/25/16 19:24 Test: PROTHROMBIN TIME; Value: 13.2; Range: 12.3-14.5; Units: SECONDS; Status: F Test: INR; Value: 0.99; Status: F Test Note: ; THERAPUTIC HUMAN INR VALUES INDICATIONS NORMAL RANGES PROPHYLAXIS/TREATMENT OF: VENOUS THROMBOSIS 2.0-3.0 PULMONARY EMBOLISM 2.0-3.0 PREVENTION OF SYSTEMIC EMBOLISM FROM: TISSUE HEART VALVES 2.0-3.0 ACUTE MYOCARDIAL INFARCTION 2.0-3.0 VALVULAR HEART DISEASE 2.0-3.0 ATRIAL FIBRILLATION 2.0-3.0 MECHANICAL VALVES(HIGH RISK) 2.5-3.5 RECURRENT MYOCARDIAL INFARCTION 2.5-3.5 Lab Order: Urinalysis; [facility] 05/25/16 19:25 Test: APPEARANCE, URINE; Value: CLEAR; Range: CLEAR; Status: F Test: COLOR, URINE; Value: STRAW; Range: YELLOW; Status: F Test: PH,URINE; Value: 5.0; Range: 5.0-9.0; Units: UNITS; Status: F Test: SPECIFIC GRAVITY URINE AUTO; Value: 1.005; Range: 1.002-1.035; Status: F Test: PROTEIN, URINE AUTO; Value: NEGATIVE; Range: NEGATIVE; Units: mg/dL; Status: F Test: GLUCOSE, URINE (UA) AUTO; Value: NEGATIVE; Range: NEGATIVE; Units: mg/dL; Status: F Test: KETONE, URINE AUTO; Value: NEGATIVE; Range: NEGATIVE; Units: mg/dL; Status: F Test: UROBILINOGEN, URINE AUTO; Value: 0.2; Range: 0.0-2.0; Units: mg/dL; Status: F Test: BILIRUBIN, URINE AUTO; Value: NEGATIVE; Range: NEGATIVE; Status: F Test: NITRITE, URINE AUTO; Value: NEGATIVE; Range: NEGATIVE; Status: F Test: LEUKOCYTE ESTERASE, URINE AUTO; Value: NEGATIVE; Range: NEGATIVE; Status: F Test: BLOOD, URINE BLOOD; Value: NEGATIVE; Range: NEGATIVE; Status: F Test: WBC, URINE AUTO; Value: 1; Range: 0-3; Units: /HPF; Status: F Test: RBC, URINE AUTO; Value: 2; Range: 0-3; Units: /HPF; Status: F Test: BACTERIA, URINE AUTO; Value: NEGATIVE; Range: NEGATIVE; Status: F Test: SQUAMOUS EPITHELIAL CELL UR AU; Value: 0; Range: 0-6; Units: /HPF; Status: F Test: MUCUS, URINE; Value: SMALL; Range: NEGATIVE; Status: F Test: HYALINE CAST, URINE AUTO; Value: 3; Range: 0-1; Units: /LPF; Status: F Lab Order: Lactic Acid (Jim tube on ice); SPEC'M 05/25/16 19:25 Test: LACTIC ACID LEVEL, LACTATE; Value: 0.4; Range: 0.4-2.0; Units: MMOL/L; Status: F Lab Order: Venous Blood Gas (large pea green tube on ice); SPEC'M 05/25/16 19:25 Test: VENOUS PH; Value: 7.322; Range: 7.330-7.430; Abnormal: Below low normal; Units: UNITS; Status: F Test: VENOUS PARTIAL PRESSURE CO2; Value: 30.9; Range: 38.0-50.0; Abnormal: Below low normal; Units: mmHg; Status: F Test: VENOUS PARTIAL PRESSURE O2; Value: 254.1; Range: 30.0-50.0; Abnormal: Above high normal; Units: mmHg; Status: F Test: VENOUS TOTAL CO2; Value: 16.6; Range: 24.0-28.0; Abnormal: Below low normal; Units: MEQ/L; Status: F Test: VENOUS HCO3; Value: 15.6; Range: 23.0-27.0; Abnormal: Below low normal; Units: MEQ/L; Status: F Test: VENOUS BASE EXCESS; Value: -9.1; Range: -2.0-2.0; Abnormal: Below low normal; Status: F Test: VENOUS STANDARD HCO3; Value: 17.4; Units: MEQ/L; Status: F Test: VENOUS O2 SATURATION; Value: 99.8; Range: 60.0-80.0; Abnormal: Above high normal; Units: %; Status: F Lab Order: AMYLASE; [facility] 05/25/16 18:57 Test: AMYLASE; Value: 96; Range: 25-115; Units: U/L; Status: F Lab Order: LIPASE; [facility] 05/25/16 18:57 Test: LIPASE; Value: 501; Range: 73-393; Abnormal: Above high normal; Units: U/L; Status: F Lab Order: LIVER PROFILE; [facility] 05/25/16 18:57 Test: AST/SGOT; Value: 16; Range: 15-37; Units: U/L; Status: F Test: ALT/SGPT; Value: 29; Range: 12-78; Units: U/L; Status: F Test: ALKALINE PHOSPHATASE; Value: 58; Range: 45-117; Units: U/L; Status: F Test: BILIRUBIN,TOTAL; Value: 0.5; Range: 0.2-1.0; Units: MG/DL; Status: F Test: BILIRUBIN,DIRECT; Value: 0.1; Range: 0.0-0.2; Units: MG/DL; Status: F Test: TOTAL PROTEIN; Value: 7.4; Range: 6.4-8.2; Units: GM/DL; Status: F Test: ALBUMIN; Value: 4.1; Range: 3.2-5.2; Units: GM/DL; Status: F Test: ALBUMIN/GLOBULIN RATIO; Value: 1.24; Range: 1.00-1.93; Status: F Lab Order: GASTROINTESTINAL (GI) PANEL; SPEC'M 05/26/16 04:19 Test: GASTROINTESTINAL (GI) PANEL; Value: GI PANEL RESULT NEGATIVE by PCR; Status: F Test: GASTROINTESTINAL (GI) PANEL; Value: Comments:; Status: F Test Note: ; This Gastrointestinal PCR Panel detects the following bacteria, parasites and viruses: Campylobacter (jejuni, coli and upsaliensis), Clostridium difficile (toxin A/B), Plesiomonas shigelloides, Salmonella, Yersinia enterocolitica, Vibrio (parahaemolyticus, vulnificus and cholerae), Vibrio clolerae, Enteroaggregative E. coli (EAEC), Enteropathogenis E. coli (EPEC), Enterotoxigenic E. coli (ETEC) it/st, Shiga-like producing E. coli (STEC) stx1/stc2, E.coli O157, Shigella/Enteroinvasive E. coli (EIEC), Cryptosporidium, Cyclospora cayetanensis, Entamoeba histolytica, Giardia lamblia, Adenovirus F 40/41, Astrovirus, Norovirus GI/GII, Rotavirus A and Sapovirus (I, II, IV, V). Lab Order: RENAL PROFILE; SPEC'M 05/26/16 04:19 Test: GLUCOSE, FASTING; Value: 140; Range: 70-105; Abnormal: Above high normal; Units: MG/DL; Status: F Test: BLOOD UREA NITROGEN; Value: 51; Range: 7-18; Abnormal: Above high normal; Units: MG/DL; Status: F Test: CREATININE FOR GFR; Value: 1.42; Range: 0.70-1.30; Abnormal: Above high normal; Units: MG/DL; Status: F Test: GLOMERULAR FILTRATION RATE; Value: 55.3; Range: >56; Abnormal: Below low normal; Status: F Test: SODIUM LEVEL; Value: 143; Range: 136-145; Abnormal: Delta; Units: MEQ/L; Status: F Test: POTASSIUM SERUM; Value: 5.3; Range: 3.5-5.1; Abnormal: Above high normal; Units: MEQ/L; Status: F Test: CHLORIDE LEVEL; Value: 117; Range: 98-107; Abnormal: Above high normal; Units: MEQ/L; Status: F Test: CARBON DIOXIDE LEVEL; Value: 17; Range: 21-32; Abnormal: Below low normal; Units: MEQ/L; Status: F Test: ANION GAP; Value: 9; Range: 8-16; Units: MEQ/L; Status: F Test: CALCIUM LEVEL; Value: 8.5; Range: 8.5-10.1; Units: MG/DL; Status: F Test: PHOSPHORUS LEVEL; Value: 3.0; Range: 2.5-4.9; Units: MG/DL; Status: F Test: ALBUMIN; Value: 3.3; Range: 3.2-5.2; Units: GM/DL; Status: F Test Note: ; Units are mL/min/1.73 m2 Chronic Kidney Disease Staging per NKF: Stage I & II GFR >=60 Normal to Mildly Decreased Stage III GFR 30-59 Moderately Decreased Stage IV GFR 15-29 Severely Decreased Stage V GFR <15 Very Little GFR Left ESRD GFR <15 on TURRET LATHE SET UP OPERATOR Lab Order: MAGNESIUM LEVEL; SPEC'M 05/26/16 04:19 Test: MAGNESIUM LEVEL; Value: 1.8; Range: 1.8-2.4; Units: MG/DL; Status: F Lab Order: CBC WITH DIFFERENTIAL; SPEC'M 05/26/16 04:19 Test: WHITE BLOOD COUNT; Value: 6.9; Range: 4.0-10.0; Units: K/mm3; Status: F Test: RED BLOOD COUNT; Value: 3.76; Range: 4.30-6.10; Abnormal: Below low normal; Units: M/mm3; Status: F Test: HEMOGLOBIN; Value: 12.2; Range: 14.0-18.0; Abnormal: Below low normal; Units: g/dl; Status: F Test: HEMATOCRIT; Value: 34.9; Range: 42.0-52.0; Abnormal: Below low normal; Units: %; Status: F Test: MEAN CORPUSCULAR VOLUME; Value: 92.7; Range: 80.0-96.0; Units: fl; Status: F Test: MEAN CORPUSCULAR HEMOGLOBIN; Value: 32.3; Range: 27.0-33.0; Units: pg; Status: F Test: MEAN CORPUSCULAR HGB CONC; Value: 34.8; Range: 32.0-36.5; Units: g/dl; Status: F Test: RED CELL DISTRIBUTION WIDTH; Value: 14.9; Range: 11.5-14.5; Abnormal: Above high normal; Units: %; Status: F Test: PLATELET COUNT, AUTOMATED; Value: 135; Range: 150-450; Abnormal: Below low normal; Units: k/mm3; Status: F Test: NEUTROPHILS %; Value: 49.2; Range: 36.0-66.0; Units: %; Status: F Test: LYMPH %; Value: 36.0; Range: 24.0-44.0; Units: %; Status: F Test: MONO %; Value: 8.0; Range: 0.0-5.0; Abnormal: Above high normal; Units: %; Status: F Test: EOS %; Value: 3.9; Range: 0.0-3.0; Abnormal: Above high normal; Units: %; Status: F Test: BASO %; Value: 0.3; Range: 0.0-1.0; Units: %; Status: F Test: LARGE UNSTAINED CELL %; Value: 2.7; Range: 0.0-4.0; Units: %; Status: F Test: NEUTROPHILS #; Value: 3.4; Range: 1.8-7.7; Units: K/mm3; Status: F Test: LYMPH #; Value: 2.5; Range: 1.5-4.5; Units: K/mm3; Status: F Test: MONO #; Value: 0.6; Range: 0.0-0.8; Units: K/mm3; Status: F Test: EOS #; Value: 0.3; Range: 0.0-0.50; Units: K/mm3; Status: F Test: BASO #; Value: 0.0; Range: 0.0-0.2; Units: K/mm3; Status: F Test: LARGE UNSTAINED CELL #; Value: 0.2; Range: 0.0-0.4; Units: K/mm3; Status: F Lab Order: LIPASE; SPEC'M 05/26/16 04:19 Test: LIPASE; Value: 423; Range: 73-393; Abnormal: Above high normal; Units: U/L; Status: F Radiology Order: portable chest Test: portable chest REASON FOR EXAMINATION: Chest Pain; PORTABLE CHEST: 05/25/2016 at 06:48 PM:; ; Clinical history: Chest pain.; ; Comparison: 02/24/2011, 07/14/2010 chest x-ray.; ; Findings. Lungs are well inflated. CP angles sharply defined. There is no; effusion, infiltrate, atelectasis or mass. Heart not grossly enlarged for; portable technique. There is no vascular redistribution or pulmonary edema.; Some minor basilar fibrotic changes seen, but stable.; ; No widening of the mediastinum. Airway intact. The aorta normal. Bones show; some degenerative changes AC joints. Plate and screw fixation from previous; anterior cervical fusion, stable.; ; Impression:; ; 1. 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 LBBB; ; Electronically Signed On 05-25-2016 21:30:36 EST by Maury Jeong; Radiology Order: CT ABD & PELVIS: No Contrast Test: CT ABD & PELVIS: No Contrast REASON FOR EXAMINATION: acute renal failure, transplant; ; CT of the abdomen and pelvis without contrast; Clinical statement: acute renal failure.; Technique: Multiple axial CT images were obtained from the base of the lungs to the floor of the pelv; is utilizing 5 mm axial slices after administration of oral contrast. Coronal and sagittal reconstruc; tions were also obtained.; Comparison: 04/20/2016.; Findings:; Chest: The visualized lung bases are clear.; Abdomen: The kidneys are absent bilaterally. Surgical clips are seen throughout the retroperitoneum a; nd appear stable. The liver, spleen, pancreas, gallbladder and adrenal glands are unremarkable. The a; nagi demonstrates normal caliber and contour. There is no abdominal lymphadenopathy or ascites.; Pelvis: The transplant kidney in the right lower quadrant appears unremarkable. There is no evidence; of hydronephrosis or nephrolithiasis. A right-sided ostomy is noted, with herniating loops of bowel.; There is no evidence of incarceration. The bowel is otherwise unremarkable, with no obstructive or in; flammatory changes. The urinary bladder is within normal limits. There is no pelvic lymphadenopathy o; r ascites. The other pelvic structures appear unremarkable.; Bones: There are no suspicious osseous abnormalities seen.; Impression:; 1. The transplant kidney in the right lower quadrant appears unremarkable.; 2. No obstructive or inflammatory bowel changes.; 3. Overall, no significant interval change.; ; Outcome: 05/25 19:01 Property :Personal belongings accompany Pt. cf2 05/26 01:02 Decision to Hospitalize by Provider. mm11 12:33 Patient left the ED. dy Signatures: Dispatcher [employer] EDMS Mirtha Bunch, Reg Reg Naseem Lares RN Alpesh Patel RN RN mlb1 Barbra Shah,RT RT Felton Hernandez, DO mm11 Cherelle Myers RN RN sls1 Anne Flynn RN RN pml McLear, Regla, SHOVEL MECHANIC SHOVEL MECHANIC tmm1 Laith Posadas gr2 Asia Horne,RN RN Coy Griffith, SHOVEL MECHANIC SHOVEL MECHANIC jrd Vandana Ames Tolu Whitten rn1 Magalys Mills,SARAH RN kc3 Tiffanie Jurado,RN RN cf2 Corrections: (The following items were deleted from the chart) 05:00 05/25 19:07 Reassessment: Patient denies pain at this time. Patient states feeling cf2 better. cf2 Chart Complete MTDD
--- NOTE | 2016-05-28 13:35 | EDDOCDS ---
Physician Documentation [facility] Name: Ramos Herrera Age: 55 yrs Sex: Male : 1960 Arrival Date: 05/25/2016 Time: 18:28 Bed Admit Hold Private MD: Pepe Mortensen MD Disposition: 05/26/16 01:02 Hospitalization ordered by Naseem Baker for Inpatient Admission. Preliminary diagnosis are Acute kidney failure, Kidney transplant status. - Bed requested for PCU. - Status is Inpatient Admission. dy - Condition is Stable. - Problem is an ongoing problem. - Symptoms have improved. Historical: - Allergies: SULFA (SULFONAMIDES) (Hives); - Home Meds: 1. allopurinol 300 mg Oral tab once daily 2. aspirin 81 mg Oral chew 1 tab mon, wed,fri 3. finasteride 5 mg oral tab 1 tab once daily 4. lisinopril 10 mg Oral tab 1 tab once daily 5. Myfortic 360 mg oral TbEC 2 times per day 6. prednisone 5 mg Oral tab 1 tab once daily 7. Prograf 1 mg oral cap 3 cap daily 8. Zofran (as hydrochloride) 4 mg Oral tab - PMHx: Polycystic Kidney Disease; Renal Failure w/o Dialysis; Diverticulitis; - PSHx: Kidney Transplant- Right; Colostomy Construction; - Social history: Smoking status: Patient states was never smoker of tobacco. No barriers to communication noted, The patient speaks fluent Belarusian, Speaks appropriately for age. - Family history: Not pertinent. - : The pt / caregiver states he / she is not on anticoagulants. Home medication list is obtained from the patient. - Exposure Risk Screening:: None identified. Vital Signs: 05/25 18:30 BP 102 / 48; Pulse 98; Resp 18 S; Temp 96.7(O); Pulse Ox 99% on R/A; Weight 102.97 kg / gr2 227.01 lbs (R); Height 6 ft. 2 in. (187.96 cm) (R); Pain 6/10; 19:07 Pulse 86 MON; Pulse Ox 98% ; cf2 19:07 BP 91 / 52 (auto/); cf2 19:07 Temp 98.0; Pain 0/10; cf2 19:15 Pulse 91 MON; Pulse Ox 98% ; cf2 19:15 BP 84 / 49 (auto/); cf2 19:26 Pulse 84 MON; Pulse Ox 99% ; cf2 19:26 BP 95 / 48 (auto/); cf2 19:30 Pulse 84 MON; Pulse Ox 99% ; cf2 19:30 BP 90 / 53 (auto/); cf2 19:45 Pulse 88 MON; Pulse Ox 99% ; cf2 19:45 BP 116 / 56 (auto/); cf2 20:00 Pulse 85 MON; Pulse Ox 99% ; cf2 20:00 BP 116 / 54 (auto/); cf2 20:15 Pulse 83 MON; Pulse Ox 97% ; cf2 20:15 BP 117 / 57 (auto/); cf2 20:30 Pulse 80 MON; Pulse Ox 99% ; cf2 20:30 BP 121 / 58 (auto/); cf2 20:45 Pulse 84 MON; Pulse Ox 98% ; cf2 20:45 BP 114 / 56 (auto/); cf2 21:00 Pulse 85 MON; Pulse Ox 98% ; cf2 21:00 BP 207 / 91 (auto/); cf2 21:15 Pulse 87 MON; Pulse Ox 98% ; cf2 21:15 BP 140 / 62 (auto/); cf2 21:30 Pulse 92 MON; Pulse Ox 98% ; cf2 21:30 BP 196 / 112 (auto/); cf2 21:45 Pulse 89 MON; Pulse Ox 96% ; cf2 21:45 BP 148 / 64 (auto/); cf2 22:00 Pulse 91 MON; Pulse Ox 98% ; cf2 22:00 BP 102 / 58 (auto/); cf2 22:15 Pulse 83 MON; Pulse Ox 98% ; cf2 22:15 BP 103 / 55 (auto/); cf2 22:38 Pulse 88 MON; Pulse Ox 98% ; cf2 22:38 BP 127 / 60 (auto/); cf2 22:39 Pulse 86 MON; Pulse Ox 98% ; cf2 22:39 BP 115 / 55 (auto/); cf2 22:45 Pulse 85 MON; Pulse Ox 98% ; cf2 22:45 BP 112 / 57 (auto/); cf2 23:39 Pulse 88 MON; Pulse Ox 98% ; cf2 23:39 BP 121 / 56 (auto/); cf2 05/26 00:03 Pulse 91 MON; cf2 00:03 BP 138 / 61 (auto/); cf2 00:04 Pulse 87 MON; Pulse Ox 99% ; cf2 00:26 Pulse 87 MON; Pulse Ox 98% ; cf2 00:30 Pulse 88 MON; cf2 00:30 BP 129 / 78 (auto/); cf2 01:00 Pulse 88 MON; cf2 01:00 BP 135 / 63 (auto/); cf2 01:30 Pulse 90 MON; Pulse Ox 99% ; cf2 01:30 BP 145 / 67 (auto/); cf2 02:00 Pulse 91 MON; cf2 02:00 BP 127 / 57 (auto/); cf2 02:30 Pulse 90 MON; cf2 02:30 BP 111 / 53 (auto/); cf2 03:00 Pulse 97 MON; cf2 03:00 BP 197 / 102 (auto/); cf2 04:00 Pulse 88 MON; cf2 04:00 BP 113 / 54 (auto/); cf2 05:20 Pulse 84 MON; Pulse Ox 98% ; cf2 07:18 Pulse 90 MON; Pulse Ox 98% ; pml 07:18 BP 135 / 72 (auto/); pml 05/25 18:30 Body Mass Index 29.14 (102.97 kg, 187.96 cm) gr2 MDM: 05/25 18:31 Outside Sales Representative/Pulse Ox/q 30 min VS ordered. sd1 18:31 IV Saline Lock ordered. sd1 18:31 Rhythm Strip to chart ordered. sd1 18:31 Undress patient appropriately for examination ordered. sd1 18:32 Basic Metabolic Profile Ordered. EDMS 18:32 CBC with Diff Ordered. EDMS 18:32 Cardiac Injury Profile Ordered. EDMS 18:32 Troponin Ordered. EDMS 18:32 portable chest Ordered. EDMS 18:32 ECG WITH READING ER PHYS+CARDIAG ordered. EDMS 19:11 LR Solution 1000 ml IV at bolus once ordered. mm11 19:12 Partial Thromboplastin Time Ordered. EDMS 19:12 Prothrombin Time Profile\E\INR Ordered. EDMS 19:12 Urinalysis Ordered. EDMS 19:12 Lactic Acid (Jim tube on ice) Ordered. EDMS 19:12 Urine Culture Ordered. EDMS 19:12 NOTHING BY MOUTH+DIET ordered. EDMS 19:12 Venous Blood Gas (large pea green tube on ice) Ordered. EDMS 19:37 AMYLASE Ordered. EDMS 19:37 LIPASE Ordered. EDMS 19:37 LIVER PROFILE Ordered. EDMS 20:02 CBC with Diff Reviewed. mm11 20:02 Partial Thromboplastin Time Reviewed. mm11 20:02 Prothrombin Time Profile\E\INR Reviewed. mm11 20:02 Lactic Acid (Jim tube on ice) Reviewed. mm11 20:02 Misc. Nursing Order ordered. mm11 20:02 NS 0.9% 1000 ml IV at bolus once ordered. mm11 20:17 Basic Metabolic Profile Reviewed. mm11 20:17 Cardiac Injury Profile Reviewed. mm11 20:17 Venous Blood Gas (large pea green tube on ice) Reviewed. mm11 20:17 LIPASE Reviewed. mm11 20:17 Troponin Reviewed. mm11 20:17 AMYLASE Reviewed. mm11 20:17 LIVER PROFILE Reviewed. mm11 20:17 portable chest Reviewed. mm11 21:28 portable chest Reviewed. mm11 21:36 NS 0.9% 1000 ml IV at bolus once ordered. mm11 21:36 Polystyrene Suspension 15 grams PO once ordered. mm11 21:37 CT ABD & PELVIS: No Contrast Ordered. EDMS 21:44 Urinalysis Reviewed. mm11 22:19 EKG-ADULT Reviewed. mm11 23:19 NS 0.9% 1000 ml IV at bolus once ordered. mm11 23:52 GASTROINTESTINAL (GI) PANEL Ordered. EDMS 05/26 00:26 Financial registration complete. slh 00:47 NS 0.9% 1000 ml IV at 250 mL/hr continuous ordered. mm11 00:48 [facility] Payment Agreement was scanned into [employer] and attached to record. slh 00:48 [employer] ordered. mm11 00:48 BED REQUEST+ADM ordered. EDMS 00:51 [employer] complete. tmm1 01:13 Prograf 3 mg PO once; administer on an empty stomach ordered. mm11 01:13 Myfortic Delayed Release Tablet 360 mg PO once ordered. mm11 02:53 Written Provider Order was scanned into [employer] and attached to record. tmm1 02:54 RENAL PROFILE Ordered. EDMS 02:54 MAGNESIUM LEVEL Ordered. EDMS 02:54 CBC WITH DIFFERENTIAL Ordered. EDMS 02:54 LIPASE Ordered. EDMS 02:58 Admission / Observation Status ordered. EDMS 02:58 ELECTROCARDIOGRAM ADULT ordered. EDMS 02:59 OTHER CUSTOM DIETS ordered. EDMS 06:36 RENAL PROFILE Reviewed. mm11 06:36 CBC WITH DIFFERENTIAL Reviewed. mm11 06:36 LIPASE Reviewed. mm11 06:36 GASTROINTESTINAL (GI) PANEL Reviewed. mm11 06:36 MAGNESIUM LEVEL Reviewed. mm11 06:36 CT ABD & PELVIS: No Contrast Reviewed. mm11 09:15 T-Sheet-- Draft Copy was scanned into [employer] and attached to record. 11:40 RENAL PROFILE Ordered. EDMS 14:34 ECG/EKG was scanned into [employer] and attached to record. gb Administered Medications: 05/25 19:30 Drug: LR 1000 ml [lactated ringers intravenous solution] Route: IV; Rate: bolus; Site: cf2 left antecubital; 20:10 Drug: NS 0.9% 1000 ml [sodium chloride 0.9 % intravenous solution] Route: IV; Rate: cf2 bolus; Site: left antecubital; 21:45 Drug: NS 0.9% 1000 ml [sodium chloride 0.9 % intravenous solution] Route: IV; Rate: cf2 bolus; Site: left antecubital; 21:45 Drug: Polystyrene 15 grams [sodium polystyrene sulfonate 15 gram/60 mL oral suspension cf2 (1200 drps)] Route: PO; 23:41 Drug: NS 0.9% 1000 ml [sodium chloride 0.9 % intravenous solution] Route: IV; Rate: sls1 bolus; Site: left antecubital; 05/26 02:53 Drug: Prograf 3 mg Route: PO; cf2 02:53 Drug: Myfortic Delayed Release Tablet 360 mg Route: PO; cf2 02:54 Drug: NS 0.9% 1000 ml [sodium chloride 0.9 % intravenous solution] Route: IV; Rate: 250 cf2 mL/hr; Site: left antecubital; Signatures: Dispatcher [employer] EDME Kristy Mccarty MD MD sd1 Mirtha Bunch, Reg Reg gb Naseem Lujan RN Alpesh Patel RN RN mlb1 Felton Franklin DO DO mm11 Sandra Regla, PROJECT MANAGEMENT PROFESSIONAL PROJECT MANAGEMENT PROFESSIONAL tmm1 Vandana Ames Tiffanie Vazquez RN RN cf2 Martin Loja RN RN sa Strong, Shannon RN sls1 The chart was reviewed and I authenticate all verbal orders and agree with the evaluation and treatment provided.Corrections: (The following items were deleted from the chart) 05/25 19:37 19:12 AMYLASE+LAB ordered. EDMS EDMS 19:37 19:12 LIPASE+LAB ordered. EDMS EDMS :37 19:12 LIVER PROFILE+LAB ordered. EDMS EDMS 23:52 23:51 GASTROINTESTINAL (GI) PANEL+JAM ordered. EDMS EDMS 05/26 03:01 00:53 BASIC METABOLIC PROFILE ordered. EDMS EDMS Attachments: 00:48 [facility] [place] Payment Agreement [facility] [address] 02:53 Written Provider Order tmm1 09:15 T-Sheet-- Draft Copy gb 14:34 ECG/EKG gb Chart Complete MTDD
--- NOTE | 2016-05-29 06:53 | IPN ---
DATE: 05/28/2016 SUBJECTIVE: Patient was seen and examined at the bedside today in the morning. He feels much better. His ileostomy output is significantly better. His renal function is improving, close to his baseline. He does not have any active complaints today. REVIEW OF SYSTEMS: Patient denies any fever, chills, rigors, headache, nausea, vomiting, chest pain, shortness of breath. His ileostomy output is more pasty now. Rest of review of system is negative. OBJECTIVE: Vital signs: Temperature is 96 degrees Fahrenheit, blood pressure is 165/78, pulse is 96, respiratory rate of 18, saturating 96% on room air. Intake and output: Urine output recorded at 1.6 liter yesterday, 550 mL output today since overnight. Weight on the bed scale is 110.7 kg. PHYSICAL EXAMINATION: General: Patient is awake, alert, oriented times three sitting in bed, no acute distress. Head and neck exam: Normocephalic, atraumatic. Extraocular muscles intact. Mucous membranes are moist. Neck is supple, there is no jugular venous distention (JVD). There is no thyromegaly. Cardiovascular: S1, S2. Regular rate. No murmur, rub or gallop. Respiratory: Chest is clear to auscultation bilaterally. Bilateral equal air entry. No rales or rhonchi. Abdomen is soft, positive bowel sounds, nontender. Right lower quadrant ileostomy with brownish semisolid stools. Extremities: No clubbing or cyanosis. Pulses are 2+. Central nervous system: No focal neurological deficit. Power is 5/5 in all extremities. LAB REVIEW: CBC showed a WBC of 9, hemoglobin 10.3, platelets are 145. BMP showed sodium 144, potassium 4.9, chloride 115, bicarbonate is 22, BUN is 31, creatinine is 1.1. Calcium 9.1, phosphorus 2.3, magnesium 1.9. CURRENT MEDICATIONS: Patient's medications were all reviewed by me. There is no change in the medications today as compared to yesterday except that he is on Bicitra 30 mL twice daily. ASSESSMENT: 55-year-old male status post live unrelated kidney transplant in 2006 admitted this time with acute kidney injury secondary to dehydration and volume depletion because of high output ileotomy. Nephrology service following the patient for management of acute kidney injury. PLAN: 1. Acute kidney injury. Patient's renal function has improved significantly with IV fluid hydration and with decrease in the ileostomy output. His baseline creatinine is 1. Today's creatinine is 1.1. No further need of IV fluid hydration at this time. 2. High output ileostomy. Patient's ileostomy output got significantly reduced by Imodium and Metamucil. Continue current dose of Metamucil and Imodium daily until patient gets surgery and reversal of the ileostomy. 3. Metabolic acidosis. Patient's metabolic acidosis is getting better. Sodium bicarbonate is 22, continue current dose of Bicitra 30 mL by mouth twice daily. 4. Hypophosphatemia. I already ordered sodium phosphate infusion 20 mL IV times one dose. 5. Immunosuppression. Continue current dose of Tacrolimus 3 mg by mouth twice daily, mycophenolate and continue current dose of prednisone 5 mg by mouth daily. 6. Hypertension. Patient's blood pressure is elevated at this time. He needs to be started on amlodipine 5 mg by mouth daily because his lisinopril was held on admission. Plan of care was discussed with the primary team as well.
--- NOTE | 2016-05-29 09:12 | DSES ---
DATE OF ADMISSION: 05/26/2016 DATE OF DISCHARGE: 05/28/2016 ATTENDING PHYSICIAN: Jack Dove MD PRIMARY CARE PHYSICIAN: Pepe Mortensen MD This is a 55-year-old male with presentation at [facility] emergency room for increased output from his ostomy. Patient is status post colectomy 02/18/[address] Brandt Krueger. He has planned ostomy reversal actually this week with Dr. Krueger. Patient was found to have an elevated creatinine. His renal transplant history also had electrolytes abnormalities and was subsequently deemed appropriate for admission. HOSPITAL COURSE: Patient was aggressively fluid resuscitated. Nephrology was consulted. He was placed on bicarbonate half normal saline drip and tolerated that well. Imodium and Metamucil were also added to his regimen along with Bicitra secondary to hyperchloremic metabolic acidosis and hyponatremia. Patient has progressed well. Today, he is receiving a phosphorus drip per nephrology. Most recent phosphorus level is 2.3 and they are deeming him appropriate to go home in anticipation of a preoperative clearance for reversal of the ostomy this week. Most recent electrolytes though show sodium of 144, potassium 4.9, chloride 115, BUN 31, creatinine 1.16, fasting glucose 154, phosphorus 2.3, and calcium level is 9.1 with a magnesium of 1.9. White blood cell count is stable at 9000. Hemoglobin and hematocrit of 12 and 38 is noted. Platelet count of 145, which appears to be baseline per patient, is also noted. Vital signs today show blood pressure 165/78, oxygen saturation 96% on room air, temperature 96, heart rate 96, respiratory rate 18. General: Patient is alert and oriented times three, is mildly anxious and resting in his exam room. HEENT: Neck is supple without lymphadenopathy or jugular venous distention (JVD). Cardiovascular: Heart rate and rhythm are regular. Pulmonary: Lungs are clear to auscultation bilaterally Abdomen is soft and nontender with positive bowel sounds times all four quadrants. Ostomy is visualized and stoma is beefy red in appearance with yellow looser stool appreciated. Bilateral lower extremities are without any edema. Neurologic: Patient is alert and oriented times three with no visible tremor. Psychiatric: Patient is mildly anxious, however conversation is appropriate and congruent. Patient does maintain eye contact throughout. ASSESSMENT: 1. High output ostomy. 2. Acute renal failure with acute on chronic kidney disease secondary to dehydration and high ileostomy output. 3. Hyperkalemia, which has resolved. 4. Hyperchloremic metabolic acidosis, which has resolved. 5. Hyponatremia, which has resolved. 6. Polycystic kidney disease with renal transplant in 2006. 7. History of diverticulitis status post ostomy with high output, plan for reversal this week. 8. Hypertension. 9. BPH. 10. Gout. PLAN: Patient will be discharged home. He will followup with his primary care physician within the next 5-7 days and his net maker within the next 1-2 weeks. Most likely nephrology will follow him status post ostomy reversal. While he is an inpatient at [facility], patient will continue with Dr. Krueger regarding his ostomy and diverticulitis. Patient is discharged on the following medications: - citric acid/sodium citrate, which is 334-500 mg in mL, he is to take 30 mL by mouth twice a day - loperamide 2 mg by mouth daily - allopurinol 300 mg by mouth daily - aspirin 81 mg by mouth by mouth daily - finasteride 5 mg by mouth daily - lisinopril 10 mg by mouth daily - mycophenolate sodium 360 mg by mouth twice a day - prednisone 5 mg by mouth daily - tacrolimus 1 mg capsule, she is to take 3 mg by mouth twice a day - psyllium one packet daily Patient is discharged in stable and satisfactory condition with no further questions at time of discharge.
== END 2016-05-28 15:58 | disposition home or self-care (01) | DRG 460 ==
LOC: M ED 18:28 → M ED INP 05-26 02:53 → M PCU 05-26 11:43
PROVIDERS: ADMIT Internal Medicine; ATTEND Family Medicine
DX: N17.9 Acute kidney failure, unspecified (principal); E87.2 Acidosis; Q61.3 Polycystic kidney, unspecified; E87.1 Hypo-osmolality and hyponatremia; K57.32 Diverticulitis of large intestine without perforation or abscess without bleeding; E87.5 Hyperkalemia; Z94.0 Kidney transplant status; E87.8 Other disorders of electrolyte and fluid balance, not elsewhere classified; M10.9 Gout, unspecified; N40.0 Benign prostatic hyperplasia without lower urinary tract symptoms; Z79.82 Long term (current) use of aspirin; I12.9 Hypertensive chronic kidney disease with stage 1 through stage 4 chronic kidney disease, or unspecified chronic kidney disease; N18.9 Chronic kidney disease, unspecified; Z79.899 Other long term (current) drug therapy; Z88.2 Allergy status to sulfonamides; I44.0 Atrioventricular block, first degree; E83.42 Hypomagnesemia; Z93.2 Ileostomy status; E83.39 Other disorders of phosphorus metabolism

== ENCOUNTER → 2016-07-11 | Outpatient (CLI) | payer BC ==
[~2016-07-11] MED LIST changes: +BICI30EL PO; +LOPE2CA PO; +METAPKT PO
[2016-07-11 11:37] LABS: BASO % 0.4 % (0.0-1.0); EOS # 0.2 K/mm3 (0.0-0.50); LARGE UNSTAINED CELL # 0.1 K/mm3 (0.0-0.4); LARGE UNSTAINED CELL % 1.7 % (0.0-4.0); LYMPH # 2.5 K/mm3 (1.5-4.5); LYMPH % 33.3 % (24.0-44.0); MEAN CORPUSCULAR HEMOGLOBIN 32.4 pg (27.0-33.0); MEAN CORPUSCULAR VOLUME 95.2 fl (80.0-96.0); MONO # 0.7 K/mm3 (0.0-0.8); MONO % 9.4 % (0.0-5.0); NEUTROPHILS # 3.7 K/mm3 (1.8-7.7); NEUTROPHILS % 52.2 % (36.0-66.0); PLATELET COUNT, AUTOMATED 173 k/mm3 (150-450); RED CELL DISTRIBUTION WIDTH 14.7 % (11.5-14.5)
[2016-07-11 12:00] LABS: ALBUMIN 3.9 GM/DL (3.2-5.2); ANION GAP 11 MEQ/L (8-16); BLOOD UREA NITROGEN 22 MG/DL (7-18); CALCIUM LEVEL 9.6 MG/DL (8.5-10.1); CARBON DIOXIDE LEVEL 21 MEQ/L (21-32); CHLORIDE LEVEL 108 MEQ/L (98-107); CREATININE FOR GFR 0.97 MG/DL (0.70-1.30); GLOMERULAR FILTRATION RATE > 60.0 (>56); GLUCOSE, FASTING 118 MG/DL (70-105); MAGNESIUM LEVEL 1.6 MG/DL (1.8-2.4); PHOSPHORUS LEVEL 2.5 MG/DL (2.5-4.9); POTASSIUM SERUM 4.4 MEQ/L (3.5-5.1); SODIUM LEVEL 140 MEQ/L (136-145)
== END ==
LOC: M LRY 08:14
PROVIDERS: ATTEND Internal Medicine Nephrology
DX: D84.9 Immunodeficiency, unspecified (principal); Z94.0 Kidney transplant status; N18.5 Chronic kidney disease, stage 5; Z79.899 Other long term (current) drug therapy

== ENCOUNTER → 2017-01-18 | Outpatient (CLI) | payer BC ==
[~2017-01-18] MED LIST changes: +CIPR-249 PO
[2017-01-18 12:06] LABS: ALBUMIN/GLOBULIN RATIO 1.43 (1.00-1.93); ALKALINE PHOSPHATASE 46 U/L (45-117); ALT/SGPT 39 U/L (12-78); ANION GAP 7 MEQ/L (8-16); AST/SGOT 15 U/L (15-37); BILIRUBIN,DIRECT 0.1 MG/DL (0.0-0.2); BILIRUBIN,TOTAL 0.6 MG/DL (0.2-1.0); BLOOD UREA NITROGEN 29 MG/DL (7-18); CALCIUM LEVEL 9.9 MG/DL (8.5-10.1); CARBON DIOXIDE LEVEL 24 MEQ/L (21-32); CHLORIDE LEVEL 109 MEQ/L (98-107); CREATININE FOR GFR 1.08 MG/DL (0.70-1.30); GLOMERULAR FILTRATION RATE > 60.0 (>56); GLUCOSE, FASTING 143 MG/DL (70-105); MAGNESIUM LEVEL 1.6 MG/DL (1.8-2.4); PHOSPHORUS LEVEL 2.6 MG/DL (2.5-4.9); SODIUM LEVEL 140 MEQ/L (136-145); TOTAL PROTEIN 6.8 GM/DL (6.4-8.2)
[2017-01-18 12:37] LABS: BASO % 0.2 % (0.0-1.0); EOS # 0.2 K/mm3 (0.0-0.50); EOS % 2.1 % (0.0-3.0); LARGE UNSTAINED CELL # 0.2 K/mm3 (0.0-0.4); LARGE UNSTAINED CELL % 3.1 % (0.0-4.0); LYMPH # 2.1 K/mm3 (1.5-4.5); LYMPH % 30.7 % (24.0-44.0); MEAN CORPUSCULAR HEMOGLOBIN 33.4 pg (27.0-33.0); MEAN CORPUSCULAR HGB CONC 34.8 g/dl (32.0-36.5); MEAN CORPUSCULAR VOLUME 95.9 fl (80.0-96.0); MONO # 0.6 K/mm3 (0.0-0.8); MONO % 8.3 % (0.0-5.0); NEUTROPHILS # 3.8 K/mm3 (1.8-7.7); NEUTROPHILS % 55.6 % (36.0-66.0); PLATELET COUNT, AUTOMATED 171 k/mm3 (150-450); WHITE BLOOD COUNT 6.8 K/mm3 (4.0-10.0)
== END ==
LOC: M LRY 07:48
PROVIDERS: ATTEND Internal Medicine Nephrology
DX: Z00.00 Encounter for general adult medical examination without abnormal findings (principal); Z94.0 Kidney transplant status; D84.9 Immunodeficiency, unspecified; Z79.899 Other long term (current) drug therapy

== ENCOUNTER → 2017-01-18 | Outpatient (CLI) | payer BC | LOC: M LRY 08:00 | PROVIDERS: ATTEND Internal Medicine Cardiovascular Disease | DX: Z00.00 Encounter for general adult medical examination without abnormal findings (principal) ==

== ENCOUNTER → 2017-06-21 | Outpatient (CLI) | payer BC ==
[2017-06-21 11:19] LABS: BASO % 0.1 % (0.0-1.0); EOS # 0.2 10^3/uL (0.0-0.50); EOS % 3.1 % (0.0-3.0); HEMOGLOBIN 15.1 g/dl (14.0-18.0); IMMATURE GRANULOCYTE % 0.3 % (0-3.0); LYMPH # 2.7 10^3/uL (1.5-4.5); LYMPH % 35.5 % (24.0-44.0); MEAN CORPUSCULAR HEMOGLOBIN 32.5 pg (27.0-33.0); MEAN CORPUSCULAR HGB CONC 34.3 g/dl (32.0-36.5); MEAN CORPUSCULAR VOLUME 94.6 fl (80.0-96.0); MONO % 12.9 % (0.0-5.0); NEUTROPHILS # 3.6 10^3/uL (1.8-7.7); NEUTROPHILS % 48.1 % (36.0-66.0); PLATELET COUNT, AUTOMATED 173 10^3/uL (150-450); RED BLOOD COUNT 4.65 10^6/uL (4.30-6.10); RED CELL DISTRIBUTION WIDTH 13.5 % (11.5-14.5); WHITE BLOOD COUNT 7.5 10^3/uL (4.0-10.0)
[2017-06-21 11:27] LABS: APPEARANCE, URINE CLEAR (CLEAR); BACTERIA, URINE AUTO NEGATIVE (NEGATIVE); BILIRUBIN, URINE AUTO NEGATIVE (NEGATIVE); BLOOD, URINE BLOOD NEGATIVE (NEGATIVE); COLOR, URINE YELLOW (YELLOW); GLUCOSE, URINE (UA) AUTO NEGATIVE (NEGATIVE); KETONE, URINE AUTO NEGATIVE (NEGATIVE); LEUKOCYTE ESTERASE, URINE AUTO NEGATIVE (NEGATIVE); NITRITE, URINE AUTO NEGATIVE (NEGATIVE); PROTEIN, URINE AUTO NEGATIVE (NEGATIVE); RBC, URINE AUTO 0 /HPF (0-3); SPECIFIC GRAVITY URINE AUTO 1.018 (1.002-1.035); SQUAMOUS EPITHELIAL CELL UR AU 0 /HPF (0-6); UROBILINOGEN, URINE AUTO 0.2 mg/dL (0.0-2.0); WBC, URINE AUTO 0 /HPF (0-3)
[2017-06-21 12:03] LABS: ALBUMIN 4.2 GM/DL (3.2-5.2); ANION GAP 8 MEQ/L (8-16); BLOOD UREA NITROGEN 33 MG/DL (7-18); CALCIUM LEVEL 9.8 MG/DL (8.5-10.1); CARBON DIOXIDE LEVEL 23 MEQ/L (21-32); CHLORIDE LEVEL 106 MEQ/L (98-107); CREATININE FOR GFR 1.14 MG/DL (0.70-1.30); GLOMERULAR FILTRATION RATE > 60.0 (>56); GLUCOSE, FASTING 156 MG/DL (70-100); MAGNESIUM LEVEL 1.7 MG/DL (1.8-2.4); SODIUM LEVEL 137 MEQ/L (136-145)
== END ==
LOC: M LRY 09:24
DX: Z51.81 Encounter for therapeutic drug level monitoring (principal); Z94.0 Kidney transplant status; N18.5 Chronic kidney disease, stage 5; D84.9 Immunodeficiency, unspecified; Z79.899 Other long term (current) drug therapy

== ENCOUNTER → 2017-12-19 | Outpatient (CLI) | payer BC ==
[2017-12-19 11:32] LABS: APPEARANCE, URINE CLEAR (CLEAR); BACTERIA, URINE AUTO NEGATIVE (NEGATIVE); BILIRUBIN, URINE AUTO NEGATIVE (NEGATIVE); BLOOD, URINE BLOOD NEGATIVE (NEGATIVE); COLOR, URINE STRAW (YELLOW); GLUCOSE, URINE (UA) AUTO 3+ mg/dL (NEGATIVE); KETONE, URINE AUTO NEGATIVE (NEGATIVE); LEUKOCYTE ESTERASE, URINE AUTO NEGATIVE (NEGATIVE); NITRITE, URINE AUTO NEGATIVE (NEGATIVE); PROTEIN, URINE AUTO NEGATIVE (NEGATIVE); RBC, URINE AUTO 0 /HPF (0-3); SPECIFIC GRAVITY URINE AUTO 1.013 (1.002-1.035); SQUAMOUS EPITHELIAL CELL UR AU 0 /HPF (0-6); UROBILINOGEN, URINE AUTO 0.2 mg/dL (0.0-2.0); WBC, URINE AUTO 0 /HPF (0-3)
[2017-12-19 11:35] LABS: BASO % 0.4 % (0.0-1.0); EOS # 0.3 10^3/uL (0.0-0.50); EOS % 3.1 % (0.0-3.0); HEMATOCRIT 41.2 % (42.0-52.0); HEMOGLOBIN 14.9 g/dl (13.5-17.5); IMMATURE GRANULOCYTE % 0.5 % (0-3.0); LYMPH % 37.8 % (24.0-44.0); MEAN CORPUSCULAR HGB CONC 36.2 g/dl (32.0-36.5); MEAN CORPUSCULAR VOLUME 94.1 fl (80.0-96.0); MONO # 0.9 10^3/uL (0.0-0.8); MONO % 10.7 % (0.0-5.0); NEUTROPHILS # 3.8 10^3/uL (1.8-7.7); NEUTROPHILS % 47.5 % (36.0-66.0); PLATELET COUNT, AUTOMATED 170 10^3/uL (150-450); RED BLOOD COUNT 4.38 10^6/uL (4.30-6.10); RED CELL DISTRIBUTION WIDTH 13.3 % (11.5-14.5); WHITE BLOOD COUNT 8.1 10^3/uL (4.0-10.0)
[2017-12-19 11:49] LABS: ALBUMIN 3.8 GM/DL (3.2-5.2); ALBUMIN/GLOBULIN RATIO 1.31 (1.00-1.93); ALKALINE PHOSPHATASE 56 U/L (45-117); ALT/SGPT 43 U/L (12-78); ANION GAP 11 MEQ/L (8-16); AST/SGOT 18 U/L (7-37); BILIRUBIN,DIRECT 0.2 MG/DL (0.0-0.2); BILIRUBIN,TOTAL 0.6 MG/DL (0.2-1.0); BLOOD UREA NITROGEN 32 MG/DL (7-18); CALCIUM LEVEL 9.6 MG/DL (8.5-10.1); CARBON DIOXIDE LEVEL 23 MEQ/L (21-32); CHLORIDE LEVEL 101 MEQ/L (98-107); CREATININE FOR GFR 1.26 MG/DL (0.70-1.30); GLOMERULAR FILTRATION RATE > 60.0 (>56); GLUCOSE, FASTING 359 MG/DL (70-100); MAGNESIUM LEVEL 1.3 MG/DL (1.8-2.4); POTASSIUM SERUM 4.5 MEQ/L (3.5-5.1); SODIUM LEVEL 135 MEQ/L (136-145); TOTAL PROTEIN 6.7 GM/DL (6.4-8.2)
[2017-12-19 12:01] LABS: CREATININE,RANDOM URINE 61.4 MG/DL
== END ==
LOC: M LRY 08:00
DX: Z94.0 Kidney transplant status (principal); N18.5 Chronic kidney disease, stage 5; D84.9 Immunodeficiency, unspecified; Z79.899 Other long term (current) drug therapy
CPT/HCPCS: 83735

== ENCOUNTER → 2018-02-08 | Outpatient (REF) | payer BC ==
[2018-02-08 13:22] LABS: HEPATITIS A ANTIBODY IGM NEGATIVE (NEGATIVE); HEPATITIS B CORE ANTIBODY IGM NEGATIVE (NEGATIVE); HEPATITIS B SURFACE ANTIGEN NEGATIVE (NEGATIVE)
[2018-02-08 14:15] LABS: CHLAMYDIA DNA AMPLIFICATION NEGATIVE (NEGATIVE); GC DNA AMPLIFICATION NEGATIVE (NEGATIVE)
[2018-02-08 15:28] LABS: HEPATITIS C VIRUS ABY INDEX < 0.0 INDEX (<0.8)
[2018-02-14 00:07] LABS: HSV TYPE I IgM AB <1:10 titer (<1:10); HSV TYPE II IgG SPECIFIC <0.91 index (0.00-0.90); HSV TYPE II IgM ABY <1:10 titer (<1:10)
== END ==
LOC: M SFHCPLAZ 08:11
DX: Z20.2 Contact with and (suspected) exposure to infections with a predominantly sexual mode of transmission (principal)
CPT/HCPCS: 87340

== ENCOUNTER → 2018-12-02 | Outpatient (REF) | payer BC ==
[~2018-12-02] MED LIST changes: +ASPI81TA26 PO; -BICI30EL PO; +KONS100P6 PO; -METAPKT PO; +PROG1CAP10 PO; +SODI1SOL12 PO; -TACR05CAP PO; -ZOFR20TA PO; +ZOFR4TAB16 PO; -ZYLO300T4 PO; +ZYLO300T6 PO
[2018-12-02 11:46] LABS: ALBUMIN 3.9 GM/DL (3.2-5.2); ALT/SGPT 39 U/L (12-78); BILIRUBIN,TOTAL 0.8 MG/DL (0.2-1.0); BLOOD UREA NITROGEN 24 MG/DL (7-18); CARBON DIOXIDE LEVEL 26 MEQ/L (21-32); CHLORIDE LEVEL 106 MEQ/L (98-107); CHOLESTEROL LEVEL 175 MG/DL (<200); CHOLESTEROL RISK RATIO 5.147 (<5); CREATININE FOR GFR 1.13 MG/DL (0.70-1.30); GLOMERULAR FILTRATION RATE > 60.0 (>56); GLUCOSE, FASTING 233 MG/DL (70-100); HDL CHOLESTEROL 34 MG/DL (>40); LDL CHOLESTEROL 74 MG/DL (<100); MAGNESIUM LEVEL 1.8 MG/DL (1.8-2.4); NON-HDL-C 141 MG/DL; POTASSIUM SERUM 4.5 MEQ/L (3.5-5.1); SODIUM LEVEL 136 MEQ/L (136-145); TRIGLYCERIDES LEVEL 333 MG/DL (<150)
[2018-12-02 11:55] LABS: HEMOGLOBIN A1c 10.9 %
[2018-12-02 13:00] LABS: BASO % 0.3 % (0.0-1.0); EOS # 0.2 10^3/uL (0.0-0.50); EOS % 2.1 % (0.0-3.0); HEMATOCRIT 44.9 % (42.0-52.0); HEMOGLOBIN 15.3 g/dl (13.5-17.5); LYMPH # 2.5 10^3/uL (1.5-4.5); LYMPH % 35.3 % (24.0-44.0); MEAN CORPUSCULAR HEMOGLOBIN 32.9 pg (27.0-33.0); MEAN CORPUSCULAR HGB CONC 34.1 g/dl (32.0-36.5); MEAN CORPUSCULAR VOLUME 96.6 fl (80.0-96.0); MONO # 0.7 10^3/uL (0.0-0.8); MONO % 9.7 % (0.0-5.0); NEUTROPHILS # 3.7 10^3/uL (1.8-7.7); PLATELET COUNT, AUTOMATED 156 10^3/uL (150-450); RED BLOOD COUNT 4.65 10^6/uL (4.30-6.10); WHITE BLOOD COUNT 7.1 10^3/uL (4.0-10.0)
== END ==
LOC: M SFHCPLAZ 09:29
PROVIDERS: ATTEND Internal Medicine
DX: Z13.220 Encounter for screening for lipoid disorders (principal); R73.01 Impaired fasting glucose; I15.1 Hypertension secondary to other renal disorders; Z94.0 Kidney transplant status; E83.42 Hypomagnesemia

== ENCOUNTER → 2018-12-24 | Outpatient (CLI) | payer BC ==
[2018-12-24 11:55] LABS: BASO % 0.4 % (0.0-1.0); EOS # 0.2 10^3/uL (0.0-0.50); EOS % 2.7 % (0.0-3.0); HEMATOCRIT 46.6 % (42.0-52.0); HEMOGLOBIN 15.9 g/dl (13.5-17.5); LYMPH # 2.6 10^3/uL (1.5-4.5); LYMPH % 32.7 % (24.0-44.0); MEAN CORPUSCULAR HEMOGLOBIN 32.3 pg (27.0-33.0); MEAN CORPUSCULAR HGB CONC 34.1 g/dl (32.0-36.5); MEAN CORPUSCULAR VOLUME 94.7 fl (80.0-96.0); MONO # 0.9 10^3/uL (0.0-0.8); MONO % 11.3 % (0.0-5.0); NEUTROPHILS # 4.2 10^3/uL (1.8-7.7); NEUTROPHILS % 52.5 % (36.0-66.0); PLATELET COUNT, AUTOMATED 170 10^3/uL (150-450); RED BLOOD COUNT 4.92 10^6/uL (4.30-6.10); WHITE BLOOD COUNT 7.9 10^3/uL (4.0-10.0)
[2018-12-24 12:02] LABS: APPEARANCE, URINE CLEAR (CLEAR); BACTERIA, URINE AUTO NEGATIVE (NEGATIVE); BILIRUBIN, URINE AUTO NEGATIVE (NEGATIVE); BILIRUBIN,DIRECT 0.2 MG/DL (0.0-0.2); BILIRUBIN,TOTAL 0.7 MG/DL (0.2-1.0); BLOOD, URINE BLOOD NEGATIVE (NEGATIVE); CALCIUM LEVEL 9.7 MG/DL (8.5-10.1); COLOR, URINE YELLOW (YELLOW); CREATININE FOR GFR 1.41 MG/DL (0.70-1.30); GLOMERULAR FILTRATION RATE 55.2 (>56); GLUCOSE, URINE (UA) AUTO 1+ mg/dL (NEGATIVE); KETONE, URINE AUTO NEGATIVE (NEGATIVE); LEUKOCYTE ESTERASE, URINE AUTO NEGATIVE (NEGATIVE); MAGNESIUM LEVEL 2.1 MG/DL (1.8-2.4); NITRITE, URINE AUTO NEGATIVE (NEGATIVE); PHOSPHORUS LEVEL 2.2 MG/DL (2.5-4.9); POTASSIUM SERUM 4.8 MEQ/L (3.5-5.1); PROTEIN, URINE AUTO NEGATIVE (NEGATIVE); RBC, URINE AUTO 0 /HPF (0-3); SPECIFIC GRAVITY URINE AUTO 1.021 (1.002-1.035); SQUAMOUS EPITHELIAL CELL UR AU 0 /HPF (0-6); TOTAL PROTEIN 6.9 GM/DL (6.4-8.2); UROBILINOGEN, URINE AUTO 0.2 mg/dL (0.0-2.0); WBC, URINE AUTO 1 /HPF (0-3)
[2018-12-24 12:38] LABS: TOTAL PROTEIN,RANDOM URINE 19.9 MG/DL (0.0-12.0)
== END ==
LOC: M LRY 08:05
PROVIDERS: ATTEND Internal Medicine Nephrology
DX: Z94.0 Kidney transplant status (principal); N18.5 Chronic kidney disease, stage 5; D84.9 Immunodeficiency, unspecified

== ENCOUNTER → 2019-01-10 | Outpatient (CLI) | payer BC ==
[2019-01-10 11:44] LABS: APPEARANCE, URINE CLEAR (CLEAR); BACTERIA, URINE AUTO NEGATIVE (NEGATIVE); BILIRUBIN, URINE AUTO NEGATIVE (NEGATIVE); BLOOD, URINE BLOOD NEGATIVE (NEGATIVE); COLOR, URINE YELLOW (YELLOW); GLUCOSE, URINE (UA) AUTO 1+ mg/dL (NEGATIVE); KETONE, URINE AUTO NEGATIVE (NEGATIVE); LEUKOCYTE ESTERASE, URINE AUTO NEGATIVE (NEGATIVE); MUCUS, URINE SMALL (NEGATIVE); NITRITE, URINE AUTO NEGATIVE (NEGATIVE); PROTEIN, URINE AUTO NEGATIVE (NEGATIVE); RBC, URINE AUTO 0 /HPF (0-3); SPECIFIC GRAVITY URINE AUTO 1.017 (1.002-1.035); SQUAMOUS EPITHELIAL CELL UR AU 0 /HPF (0-6); UROBILINOGEN, URINE AUTO 0.2 mg/dL (0.0-2.0); WBC, URINE AUTO 2 /HPF (0-3)
[2019-01-10 11:52] LABS: BASO % 0.3 % (0.0-1.0); EOS # 0.2 10^3/uL (0.0-0.5); EOS % 3.6 % (0.0-3.0); HEMATOCRIT 42.3 % (42.0-52.0); HEMOGLOBIN 14.3 g/dl (13.5-17.5); LYMPH # 2.3 10^3/uL (1.5-5.0); LYMPH % 37.8 % (24.0-44.0); MEAN CORPUSCULAR HEMOGLOBIN 31.9 pg (27.0-33.0); MEAN CORPUSCULAR HGB CONC 33.8 g/dl (32.0-36.5); MEAN CORPUSCULAR VOLUME 94.4 fl (80.0-96.0); MONO # 0.7 10^3/uL (0.0-0.8); MONO % 11.8 % (0.0-5.0); NEUTROPHILS # 2.8 10^3/uL (1.5-8.5); NEUTROPHILS % 46.2 % (36.0-66.0); PLATELET COUNT, AUTOMATED 153 10^3/uL (150-450); RED BLOOD COUNT 4.48 10^6/uL (4.30-6.10)
[2019-01-10 12:28] LABS: ALBUMIN 3.9 GM/DL (3.2-5.2); ALT/SGPT 38 U/L (12-78); BILIRUBIN,DIRECT 0.2 MG/DL (0.0-0.2); BILIRUBIN,TOTAL 0.7 MG/DL (0.2-1.0); BLOOD UREA NITROGEN 30 MG/DL (7-18); CALCIUM LEVEL 10.4 MG/DL (8.5-10.1); CARBON DIOXIDE LEVEL 25 MEQ/L (21-32); CHLORIDE LEVEL 109 MEQ/L (98-107); CREATININE FOR GFR 1.14 MG/DL (0.70-1.30); GLOMERULAR FILTRATION RATE > 60.0 (>56); GLUCOSE, FASTING 194 MG/DL (70-100); MAGNESIUM LEVEL 1.7 MG/DL (1.8-2.4); PHOSPHORUS LEVEL 2.4 MG/DL (2.5-4.9); POTASSIUM SERUM 4.9 MEQ/L (3.5-5.1); SODIUM LEVEL 140 MEQ/L (136-145); TOTAL PROTEIN 6.6 GM/DL (6.4-8.2)
== END ==
LOC: M LRY 07:37
PROVIDERS: ATTEND Internal Medicine Nephrology
DX: Z51.81 Encounter for therapeutic drug level monitoring (principal); Z79.899 Other long term (current) drug therapy; Z94.0 Kidney transplant status; D84.9 Immunodeficiency, unspecified; N18.5 Chronic kidney disease, stage 5

== ENCOUNTER 2019-01-25 23:04 | Inpatient (IN) | payer BC ==
[~2019-01-25] VITALS: Ht 188 cm; Wt 102.8 kg
[2019-01-25] MEDS ORDERED: TACR5CAP PO (23:16)
[2019-01-25] MEDS ORDERED: BASA100I SC (23:16)
[2019-01-25] MEDS ORDERED: METOCLOPRAMIDE INJ 10MG/2ML VIAL (J2765) IV ONE (23:45)
[2019-01-25] MEDS ORDERED: NS IV ONE (23:45)
[2019-01-25] MEDS ORDERED: DILUENT IV ONE (23:45)
[2019-01-26] MEDS: MORPHINE 4 MG/ML 1ML VIAL/SYRINGE (J2270) IV PRN (00:07)
[2019-01-26 00:09] LABS: INR 1.04; PROTHROMBIN TIME 13.3 SECONDS (11.8-14.0)
[2019-01-26 00:10] LABS: PARTIAL THROMBOPLASTIN TIME 29.8 SECONDS (25.0-38.4)
[2019-01-26 00:19] LABS: ALBUMIN 3.8 GM/DL (3.2-5.2); ALT/SGPT 28 U/L (12-78); BASO % 0.2 % (0.0-1.0); BILIRUBIN,DIRECT 0.2 MG/DL (0.0-0.2); BILIRUBIN,TOTAL 0.5 MG/DL (0.2-1.0); BLOOD UREA NITROGEN 28 MG/DL (7-18); CALCIUM LEVEL 9.7 MG/DL (8.5-10.1); CARBON DIOXIDE LEVEL 28 MEQ/L (21-32); CHLORIDE LEVEL 104 MEQ/L (98-107); CREATININE FOR GFR 1.25 MG/DL (0.70-1.30); EOS # 0.2 10^3/uL (0.0-0.5); EOS % 1.7 % (0.0-3.0); GLOMERULAR FILTRATION RATE > 60.0 (>56); GLUCOSE, FASTING 171 MG/DL (70-100); HEMATOCRIT 41.7 % (42.0-52.0); HEMOGLOBIN 14.3 g/dl (13.5-17.5); LIPASE 275 U/L (73-393); LYMPH # 3.1 10^3/uL (1.5-5.0); LYMPH % 29.4 % (24.0-44.0); MEAN CORPUSCULAR HEMOGLOBIN 32.2 pg (27.0-33.0); MEAN CORPUSCULAR HGB CONC 34.3 g/dl (32.0-36.5); MEAN CORPUSCULAR VOLUME 93.9 fl (80.0-96.0); MONO % 9.2 % (0.0-5.0); NEUTROPHILS # 6.2 10^3/uL (1.5-8.5); NEUTROPHILS % 58.7 % (36.0-66.0); PLATELET COUNT, AUTOMATED 174 10^3/uL (150-450); POTASSIUM SERUM 4.4 MEQ/L (3.5-5.1); RED BLOOD COUNT 4.44 10^6/uL (4.30-6.10); SODIUM LEVEL 140 MEQ/L (136-145); TOTAL PROTEIN 6.5 GM/DL (6.4-8.2); WHITE BLOOD COUNT 10.6 10^3/uL (4.0-10.0)
--- NOTE | 2019-01-26 00:41 | REPVR ---
PROCEDURE INFORMATION: Exam: CT Abdomen and Pelvis Without Contrast Exam date and time: 01/25/2019 11:51 PM Clinical history: 58 years old, male; Abdominal pain; Localized; Right lower quadrant (rlq); Additional info: Intractable vomiting, rlq pain, kidney transplant PT TECHNIQUE: Imaging protocol: Computed tomography of the abdomen and pelvis without contrast. Radiation optimization: All CT scans at this facility use at least one of these dose optimization techniques: automated exposure control; mA and/or kV adjustment per patient size (includes targeted exams where dose is matched to clinical indication); or iterative reconstruction. COMPARISON: CT ABD PELVIS W/O CONTRAST 05/25/2016 10:26 PM FINDINGS: Lungs: Minimal linear scar in the medial right middle lobe. Liver: Probable small hepatic cysts measuring 19 mm or less. Gallbladder and bile ducts: Faint gallstone in the gallbladder neck measuring 5 mm. Mild distention of the CBD measuring 12 mm with no distal calculus or mass. Pancreas: Normal. No ductal dilation. Spleen: The spleen measures 13.0 cm. Adrenals: Normal. No mass. Kidneys and ureters: Status post bilateral nephrectomies with right pelvic transplant kidney. Stomach and bowel: Multiple surgical clips with a small bowel anastomosis in the right lower quadrant. Borderline to mild distention of some mid abdominal small bowel segments with air-fluid levels and collapsed distal small bowel consistent with small bowel obstruction. A definite point of transition is not identified. There is a small ventral wall hernia, probably in the area of previous ostomy site with slight protrusion of a small bowel wall into the defect but does not appear to correspond to the point of transition. There is induration of supplying mesenteric to the dilated small bowel, particularly to the right of midline suggesting a transition in this area. There is trace fluid adjacent to the bowel segments on the right as well. There is a mid sigmoid anastomosis with a few diverticula without diverticulitis. Appendix: There appears to be a normal but large appendix with no wall thickening or surrounding induration. Intraperitoneal space: See Stomach And Bowel Finding. Vasculature: There is minimal atherosclerotic calcification of the abdominal aorta. Lymph nodes: Unremarkable. No enlarged lymph nodes. Bladder: Unremarkable as visualized. Reproductive: Unremarkable as visualized. Bones/joints: Unremarkable. No acute fracture. Soft tissues: Unremarkable. IMPRESSION: 1. Borderline splenomegaly. 2. Status post bilateral nephrectomies with right pelvic transplant kidney which is similar to the prior study. 3. Reversal of the right lower quadrant ileostomy since the prior study. Residual scarring minimal defect is noted in the area with slight protrusion of a small bowel wall into the residual defect. No secondary obstruction is associated with this. 4. Small bowel obstruction with induration and trace fluid associated with the supplying mesentery in the right abdomen the definite point of transition or obstruction is not identified but is suspected on the right. 5. Faint gallstone in the gallbladder neck and mild distention of the CBD with normal tapering to the ampulla. 6. Mid sigmoid anastomosis with minimal diverticulosis. No diverticulitis. Electronically signed by: Vadim Hartley On 01/26/2019 00:40:53 AM
[2019-01-26] MEDS ORDERED: ZZZQ50LI PO (01:45)
[2019-01-26] MEDS ORDERED: LISI-542 PO (01:45)
[2019-01-26] MEDS ORDERED: TACR1CAP3 PO (01:45)
[2019-01-26] MEDS ORDERED: LORazepam 2 MG/ML VIAL (J2060) IV STA ×2 (01:52→10:26)
[2019-01-26] MEDS ORDERED: DEXTROSE 50% 50 ML SYRINGE IV PRN (02:30)
[2019-01-26] MEDS ORDERED: GLUCAGON FOR INJ 1 MG VIAL (J1610) SC PRN (02:30)
[2019-01-26] MEDS ORDERED: GLUCOSE 4 GM CHEW TABLET PO PRN (02:30)
--- NOTE | 2019-01-26 02:51 | HPEPDOC ---
General Date of Admission Date of Service: Jan 26, 2019 Chief Complaint The patient is a 58-year-old male admitted with a reason for visit of Abd Pain. Source: Patient, RN/MD Exam Limitations: No limitations Timing/Duration: Day(s) Severity: Moderate History of Present Illness Mr. Herrera is a 58 years old man with previous history of abdominal surgeries: B/L nephrectomy for polycystic kidney disease 2002, Renal transplant in 2006 and colectomy in 2016. He presents to Er with c/o diffuse abdominal pain, nausea and vomiting for two days. He denies fever, chills or other symptoms. In the ER pt has normal mental status, vitals and labs. CT abd/pelv: SBO, gallstone in bladder neck, dilated CBD 12 mm without intra-CBD stone. Dr Jameson was consulted from ER. Home Medications Scheduled Allopurinol (Zyloprim) 300 Mg Tab, 300 MG PO DAILY, (Reported) Aspirin (Aspirin EC) 81 Mg Tab, 81 MG PO 3XW, (Reported) Sun, Sun, Sun Finasteride (Finasteride) 5 Mg Tab, 5 MG PO DAILY, (Reported) Insulin Glargine,Hum.rec.anlog (Basaglar Kwikpen U-100) 100 Unit/1 Ml Insu ln.pen, 12 UNIT SC QHS, (Reported) CURRENT DOSE - IF AM BLOOD SUGAR > 140, THEN WILL INCREASE 2 UNITS, REPEATING UNTIL LEVEL IS REACHED, PER MD. Lisinopril (Lisinopril) 5 Mg Tablet, 10 MG PO DAILY, (Reported) Mycophenolate Sodium (Myfortic) 360 Mg Tab, 360 MG PO BID, (Reported) Prednisone (Prednisone) 5 Mg Tab, 5 MG PO DAILY, (Reported) Tacrolimus (Tacrolimus) 1 Mg Capsule, 3 MG PO BID, (Reported) Scheduled PRN Diphenhydramine HCl (Zzzquil) 50 Mg/30 Ml Liquid, 25 MG PO QHS PRN for SLEEP, (Reported) Allergies Coded Allergies: Rabbit Epithelium (Verified Allergy, Unknown, 01/25/19) RABBIT FUR Sulfa (Sulfonamide Antibiotics) (Verified Allergy, Unknown, HIVES, DYSPNEA, 01/25/19) Past Medical History Medical History Polycystic kidney disease status post removal of both kidneys in 2002 and renal transplant on left side in 2006; IDDM; History of diverticulitis; Hypertension; Gout. Surgical History Bilateral Nephrectomy, Kidney transplant for polycystic kidney disease, Colectomy, Ear tubes, Right hip pinning for slipped capital femoral epiphysis as a teenager, AV fistulas in both arms and has a stent in his left arm fistula. Family History Significant Family History: Other (Polycystic kidney disease) Social History * Smoker: Denies Alcohol: rarely Drugs: denies A-FIB/CHADSVASC A-FIB History Current/History of A-Fib/PAF?: No Review of Systems Constitutional: Denies: Chills, Fever, Malaise Eyes: Denies: Pain, Vision change ENT: Denies: Head Aches, Ear Pain, Dysphagia Skin: Denies: Rash, Lesions Pulmonary: Denies: Dyspnea, Cough, Pleuritic Chest Pain Cardiovascular: Denies: Chest Pain, Palpitations, Lt Headedness Gastrointestinal: Reports: Nausea, Vomiting, Abdominal Pain; Denies: Diarrhea, Constipation Genitourinary: Denies: Dysuria, Frequency Hematologic: Denies: Bruising, Bleeding Excessively Endocrine: Denies: Polydipsia, Polyphagia Musculoskeletal: Denies: Neck Pain, Back Pain, Shoulder Pain Neurological: Denies: Weakness, Change in speech, Confusion, Seizures Psych: Reports: Mood Normal; Denies: Anxiety, Depression Physical Examination General Exam: Positive: Alert, Cooperative, No Acute Distress Eye Exam: Positive: PERRLA, Conjunctiva & lids normal ENT Exam: Positive: Atraumatic, Mucous membr. moist/pink Neck Exam: Positive: Supple; Negative: JVD Chest Exam: Positive: Clear to auscultation, Normal air movement Heart Exam: Positive: Rate Normal, Normal S1, Normal S2; Negative: Murmurs Abdomen Exam: Positive: BS Hyperactive, Soft, Other (Distended); Negative: Tenderness Extremity Exam: Positive: Normal pulses; Negative: Edema Skin Exam: Positive: Nl turgor and temperature; Negative: Rash, Breakdown Neuro Exam: Positive: Normal Speech, Strength at 5/5 X4 ext, Normal Tone Psych Exam: Positive: Mental status NL, Mood NL Vital Signs Vital Signs Date Time Temp Pulse Resp B/P (MAP) Pulse Ox O2 Delivery O2 Flow Rate FiO2 01/26/19 01:11 65 14 102/61 (75) 98 01/25/19 23:04 98.8 Room Air Laboratory Data Labs 24H Laboratory Tests 2 01/25/19 23:45: Immature Granulocyte % (Auto) 0.8, White Blood Count 10.6H, Red Blood Count 4.44, Hemoglobin 14.3, Hematocrit 41.7L, Mean Corpuscular Volume 93.9, Mean Corpuscular Hemoglobin 32.2, Mean Corpuscular Hemoglobin Concent 34.3, Red Cell Distribution Width 13.4, Platelet Count 174, Neutrophils (%) (Auto) 58.7, Lymphocytes (%) (Auto) 29.4, Monocytes (%) (Auto) 9.2H, Eosinophils (%) (Auto) 1.7, Basophils (%) (Auto) 0.2, Neutrophils # (Auto) 6.2, Lymphocytes # (Auto) 3.1, Monocytes # (Auto) 1.0H, Eosinophils # (Auto) 0.2, Basophils # (Auto) 0.0, Nucleated Red Blood Cells % (auto) 0.0, Prothrombin Time 13.3, Prothromb Time International Ratio 1.04, Activated Partial Thromboplast Time 29.8, Anion Gap 8, Glomerular Filtration Rate > 60.0, Lactic Acid Level 1.0, Calcium Level 9.7, Aspartate Amino Transf (AST/SGOT) 16, Alanine Aminotransferase (ALT/SGPT) 28, Alkaline Phosphatase 47, Total Bilirubin 0.5, Direct Bilirubin 0.2, Total Protein 6.5, Albumin 3.8, Albumin/Globulin Ratio 1.41, Lipase 275 CBC/BMP Laboratory Tests 01/25/19 23:45 Red Blood Count 4.44, Mean Corpuscular Volume 93.9, Mean Corpuscular Hemoglobin 32.2, Mean Corpuscular Hemoglobin Concent 34.3, Red Cell Distribution Width 13.4, Neutrophils (%) (Auto) 58.7, Lymphocytes (%) (Auto) 29.4, Monocytes (%) (Auto) 9.2 H, Eosinophils (%) (Auto) 1.7, Basophils (%) (Auto) 0.2, Neutrophils # (Auto) 6.2, Lymphocytes # (Auto) 3.1, Monocytes # (Auto) 1.0 H, Eosinophils # (Auto) 0.2, Basophils # (Auto) 0.0 Microbiology Microbiology 01/25/19 Blood Culture, Received Pending 01/25/19 Blood Culture, Received Pending Assessment/Plan SBO with Previous Hx of abdominal surgeries; Gallstone, Dilated CBD - Admit to inpatient - Surgical consult - NG tube on low intermittent sanction - NPO, IV fluid, pain management, anti-emetic - Monitor and supplement electrolytes. S/P Renal Transplant - Continue immunosuppressive tx - Monitor renal fx IDDM - SSI alone while NPO Plan / VTE VTE Prophylaxis Ordered?: Yes Plan IVF: Initiate Diet: Make NPO Activity: Continue Current, Encourage Ambulation Diagnostics: Repeat Labs in AM Anticipated Discharge: Home CLAU DIAZ MD Jan 26, 2019 02:51
[2019-01-26 04:30] VITALS: BP 137/82
[2019-01-26] MEDS: D5W/LR 1,000 ML IV SCH ×3 (04:43→22:42)
[2019-01-26] MEDS: HumaLOG INSULIN (NovoLOG) PER UNIT SC SCH ×3 (05:59→18:36)
[2019-01-26 06:28] LABS: BASO % 0.1 % (0.0-1.0); EOS # 0.2 10^3/uL (0.0-0.5); HEMATOCRIT 38.6 % (42.0-52.0); HEMOGLOBIN 13.2 g/dl (13.5-17.5); LYMPH # 2.5 10^3/uL (1.5-5.0); LYMPH % 33.7 % (24.0-44.0); MEAN CORPUSCULAR HEMOGLOBIN 32.1 pg (27.0-33.0); MEAN CORPUSCULAR HGB CONC 34.2 g/dl (32.0-36.5); MEAN CORPUSCULAR VOLUME 93.9 fl (80.0-96.0); MONO # 0.8 10^3/uL (0.0-0.8); MONO % 11.3 % (0.0-5.0); NEUTROPHILS # 3.9 10^3/uL (1.5-8.5); NEUTROPHILS % 52.6 % (36.0-66.0); PLATELET COUNT, AUTOMATED 151 10^3/uL (150-450); RED BLOOD COUNT 4.11 10^6/uL (4.30-6.10); WHITE BLOOD COUNT 7.4 10^3/uL (4.0-10.0)
[2019-01-26 06:59] LABS: ALBUMIN 3.2 GM/DL (3.2-5.2); ALT/SGPT 28 U/L (12-78); BILIRUBIN,TOTAL 0.5 MG/DL (0.2-1.0); BLOOD UREA NITROGEN 24 MG/DL (7-18); CALCIUM LEVEL 8.6 MG/DL (8.5-10.1); CARBON DIOXIDE LEVEL 21 MEQ/L (21-32); CHLORIDE LEVEL 111 MEQ/L (98-107); CREATININE FOR GFR 0.96 MG/DL (0.70-1.30); GLOMERULAR FILTRATION RATE > 60.0 (>56); GLUCOSE, FASTING 171 MG/DL (70-100); MAGNESIUM LEVEL 1.6 MG/DL (1.8-2.4); POTASSIUM SERUM 4.1 MEQ/L (3.5-5.1); SODIUM LEVEL 140 MEQ/L (136-145); TOTAL PROTEIN 5.8 GM/DL (6.4-8.2)
[2019-01-26] MEDS: ENOXAPARIN 40 MG/0.4 ML SYRINGE (J1650) SC SCH ×2 (09:00→09:08)
[2019-01-26] MEDS ORDERED: FLUBLOK(EGG FREE)(QUAD)INFLUENZA VACC 0.5ML SYRINGE (90682)18YRS&OLDER IM ONE (09:00)
[2019-01-26] MEDS: PANTOPRAZOLE 40MG INJ (PROTONIX) (C9113) IV SCH (09:08)
[2019-01-26] MEDS: TACROLIMUS 1 MG CAP (J7507) PO SCH ×2 (09:08→20:11)
[2019-01-26] MEDS: predniSONE 5 MG TAB PO SCH (09:08)
[2019-01-26] MEDS ORDERED: METOCLOPRAMIDE INJ 10MG/2ML VIAL (J2765) IV STA (10:26)
--- NOTE | 2019-01-26 13:23 | IPNPDOC ---
Subjective Date Seen The patient was seen on 01/26/19. Subjective Chief Complaint/HPI Ramos reported that a couple days before admission he felt an abdominal cramping feeling. He left work and laid down for a few hours and everything resolved. On the day of admission the same thing happened, but he couldn't leave work to rest and the pain got worse. He was feeling nauseated and anxious earlier today, but the Reglan and Ativan helped. Also Dr. Jameson repositioned the NG tube so it is out of his esophagus and this seemed to help the most. General: Denies: Normal Appetite Pulmonary: Denies: Dyspnea, Cough Cardiovascular: Denies: Chest Pain, Palpitations Gastrointestinal: Reports: Nausea, Abdominal Pain Genitourinary: Denies: Dysuria Psych: Reports: Mood Normal Objective Physical Examination General Exam: Positive: Alert, Cooperative, No Acute Distress (laying on his right side resting in the bed when I entered) Eye Exam: Positive: PERRLA, Conjunctiva & lids normal; Negative: Sclera icteric ENT Exam: Positive: Atraumatic, Mucous membr. moist/pink Neck Exam: Positive: Supple; Negative: Lymphadenopathy Chest Exam: Positive: Clear to auscultation, Normal air movement; Negative: Rales, Rhonchi, Wheezing Heart Exam: Positive: Rate Normal, Normal S1, Normal S2; Negative: Murmurs Abdomen Exam: Positive: BS Hyperactive, Soft, Other (Distended); Negative: Tenderness Extremity Exam: Positive: Normal pulses; Negative: Edema Skin Exam: Positive: Nl turgor and temperature; Negative: Rash, Breakdown Neuro Exam: Positive: Normal Speech, Strength at 5/5 X4 ext, Normal Tone Psych Exam: Positive: Mental status NL, Mood NL, Memory Intact, Oriented x 3 Assessment /Plan Problems (1) Small bowel obstruction Status: Acute Discussed With: Cane Splicer (Dr. Gregorio Jameson), Patient Problem Specific Plan: Monitor Clinically Problem Text: Now that the NG tube is in proper position, he is starting to feel a bit better. Dr. Jameson was pretty clear that he thought this was only a partial obstruction at this time. This is a good prognostic indicator that he may be able to resolve his obstruction with conservative measures. (2) History of renal transplant Status: Chronic Response to Treatment: Controlled Discussed With: Patient Problem Specific Plan: Repeat Labs Problem Text: As he only has one transplanted kidney at the first signs of dif ficulty we should consult nephrology. At present things seem to be going ok with is kidney. (3) Diabetes mellitus, type II Status: Chronic Discussed With: Patient Problem Specific Plan: Monitor Clinically, Repeat Tests Problem Text: This is a pretty new dx for him (like less than a month). He is trying to make lifesyle changes, but is also on a low dose basal insulin that is being actively titrated up. He is on ISS here. This makes the most sense, as we don't want him to become hypoglycemic from lack of oral nutrition. (4) Hypomagnesemia Problem Specific Plan: Monitor Clinically, Repeat Labs Problem Text: His magnesium is just a little low, so I repleated his IVF with magnesium salts. Will continue to monitor. Plan/VTE VTE Prophylaxis Ordered?: Yes (Lovenox) Plan IVF: Initiate Diet: Make NPO Activity: Continue Current, Encourage Ambulation Diagnostics: Repeat Labs in AM Anticipated Discharge: Home VS, I&O, 24H, [facility] Vital Signs/I&O Vital Signs Date Time Temp Pulse Resp B/P (MAP) Pulse Ox O2 Delivery O2 Flow Rate FiO2 01/26/19 04:30 97.6 83 20 137/82 (100) 97 01/26/19 03:00 Room Air I&O- Last 24 Hours up to 6 AM 01/26/19 05:59 Intake Total 0 ml Balance 0 ml Laboratory Data 24H LABS Laboratory Tests 2 01/25/19 23:45: Immature Granulocyte % (Auto) 0.8, White Blood Count 10.6H, Red Blood Count 4.44, Hemoglobin 14.3, Hematocrit 41.7L, Mean Corpuscular Volume 93.9, Mean Corpuscular Hemoglobin 32.2, Mean Corpuscular Hemoglobin Concent 34.3, Red Cell Distribution Width 13.4, Platelet Count 174, Neutrophils (%) (Auto) 58.7, Lymphocytes (%) (Auto) 29.4, Monocytes (%) (Auto) 9.2H, Eosinophils (%) (Auto) 1.7, Basophils (%) (Auto) 0.2, Neutrophils # (Auto) 6.2, Lymphocytes # (Auto) 3.1, Monocytes # (Auto) 1.0H, Eosinophils # (Auto) 0.2, Basophils # (Auto) 0.0, Nucleated Red Blood Cells % (auto) 0.0, Prothrombin Time 13.3, Prothromb Time International Ratio 1.04, Activated Partial Thromboplast Time 29.8, Anion Gap 8, Glomerular Filtration Rate > 60.0, Lactic Acid Level 1.0, Calcium Level 9.7, Aspartate Amino Transf (AST/SGOT) 16, Alanine Aminotransferase (ALT/SGPT) 28, Alkaline Phosphatase 47, Total Bilirubin 0.5, Direct Bilirubin 0.2, Total Protein 6.5, Albumin 3.8, Albumin/Globulin Ratio 1.41, Lipase 275 01/26/19 05:48: Immature Granulocyte % (Auto) 0.3, White Blood Count 7.4, Red Blood Count 4.11L, Hemoglobin 13.2L, Hematocrit 38.6L, Mean Corpuscular Volume 93.9, Mean Corpuscular Hemoglobin 32.1, Mean Corpuscular Hemoglobin Concent 34.2, Red Cell Distribution Width 13.6, Platelet Count 151, Neutrophils (%) (Auto) 52.6, Lymphocytes (%) (Auto) 33.7, Monocytes (%) (Auto) 11.3H, Eosinophils (%) (Auto) 2.0, Basophils (%) (Auto) 0.1, Neutrophils # (Auto) 3.9, Lymphocytes # (Auto) 2.5, Monocytes # (Auto) 0.8, Eosinophils # (Auto) 0.2, Basophils # (Auto) 0.0, Nucleated Red Blood Cells % (auto) 0.0, Anion Gap 8, Glomerular Filtration Rate > 60.0, Calcium Level 8.6, Aspartate Amino Transf (AST/SGOT) 15, Alanine Aminotransferase (ALT/SGPT) 28, Alkaline Phosphatase 45, Total Bilirubin 0.5, Total Protein 5.8L, Albumin 3.2, Albumin/Globulin Ratio 1.23, Blood Urea Nitrogen 24H, Creatinine 0.96, Sodium Level 140, Potassium Level 4.1, Chloride Level 111H, Carbon Dioxide Level 21, Magnesium Level 1.6L 01/26/19 05:53: Bedside Glucose (Misc Panel) 179H 01/26/19 11:52: Bedside Glucose (Misc Panel) 200H CBC/BMP Laboratory Tests 01/25/19 23:45 Red Blood Count 4.44, Mean Corpuscular Volume 93.9, Mean Corpuscular Hemoglobin 32.2, Mean Corpuscular Hemoglobin Concent 34.3, Red Cell Distribution Width 13.4, Neutrophils (%) (Auto) 58.7, Lymphocytes (%) (Auto) 29.4, Monocytes (%) (Auto) 9.2 H, Eosinophils (%) (Auto) 1.7, Basophils (%) (Auto) 0.2, Neutrophils # (Auto) 6.2, Lymphocytes # (Auto) 3.1, Monocytes # (Auto) 1.0 H, Eosinophils # (Auto) 0.2, Basophils # (Auto) 0.0 01/26/19 05:48 Red Blood Count 4.11 L, Mean Corpuscular Volume 93.9, Mean Corpuscular Hemoglobin 32.1, Mean Corpuscular Hemoglobin Concent 34.2, Red Cell Distribution Width 13.6, Neutrophils (%) (Auto) 52.6, Lymphocytes (%) (Auto) 33.7, Monocytes (%) (Auto) 11.3 H, Eosinophils (%) (Auto) 2.0, Basophils (%) (Auto) 0.1, Neutrophils # (Auto) 3.9, Lymphocytes # (Auto) 2.5, Monocytes # (Auto) 0.8, Eosinophils # (Auto) 0.2, Basophils # (Auto) 0.0, Calcium Level 8.6, Aspartate Amino Transf (AST/SGOT) 15, Alanine Aminotransferase (ALT/SGPT) 28, Alkaline Phosphatase 45, Total Bilirubin 0.5, Total Protein 5.8 L, Albumin 3.2 Microbiology Microbiology 01/25/19 Blood Culture, Received Pending 01/25/19 Blood Culture, Received Pending Pepe Mortensen MD Jan 26, 2019 1:23 pm
[2019-01-26] MEDS ORDERED: METOCLOPRAMIDE INJ 10MG/2ML VIAL (J2765) IV PRN (13:30)
[2019-01-26] MEDS ORDERED: MAG SULF 1GM/100ML (MAG RUN) 1 GM in APPROPRIATE DILUENT 1 EA IV ONE (13:45)
[2019-01-26 14:00] VITALS: BP 142/78
[2019-01-26] MEDS: MYFORTIC 360 MG PO SCH (20:11)
[2019-01-26] MEDS: LORazepam 2 MG/ML VIAL (J2060) IV PRN (20:11)
[2019-01-26 22:00] VITALS: BP 148/86
[2019-01-27] MEDS: HumaLOG INSULIN (NovoLOG) PER UNIT SC SCH ×4 (05:23→17:42)
--- NOTE | 2019-01-27 05:23 | CR ---
DATE OF CONSULTATION: 01/26/2019 REASON FOR CONSULTATION: Crampy abdominal pain, nausea, vomiting, history of small bowel obstruction and concern for ongoing small-bowel obstruction. HISTORY OF PRESENT ILLNESS: The patient is a 38-year-old male who has had multiple intra-abdominal procedures and was admitted last night for small-bowel obstruction with complaint of diffuse crampy abdominal pain that has been much better today and has had less discomfort. He has had some nausea and vomiting going on for a few days but it has actually stopped at this time. PAST MEDICAL HISTORY: 1. History of bilateral nephrectomy for polycystic kidney disease. 2. History of renal transplant. 3. History of colectomy. 4. History of small bowel obstructions. 5. History of diabetes mellitus. 6. History of diverticulitis. 7. Hypertension. 8. Gout. MEDICATIONS: - allopurinol - aspirin - finasteride - insulin - lisinopril - Myfortic - prednisone - Tacrolimus PHYSICAL EXAMINATION: GENERAL: 58-year-old male who looks stated age. HEENT: Unremarkable. NECK: Supple without adenopathy. LUNGS: Clear to auscultation without crackles, wheezes or rhonchi. HEART: Regular. ABDOMEN: Abdomen is soft, mildly distended but without significant guarding, rebound or peritoneal signs. EXTREMITIES: Warm, well-perfused; does have some mild tenderness in the right lower quadrant/right midabdomen with deep palpation. IMPRESSION/PLAN: The patient has evidence of a partial small bowel obstruction. When I look at the CAT scan there is air fluid throughout. His nasogastric (NG) tube was not working great this morning so I am manipulated this and it started working a lot better at that time. Otherwise with his generalized appearance it may be reasonable to continue with the NG tube for this time. We have discussed that if he has ongoing problems or does not seem to the opening up then we may proceed with a operative intervention for probable small bowel obstruction secondary to adhesions.
[2019-01-27 06:00] VITALS: BP 140/82
[2019-01-27 06:50] LABS: BASO % 0.1 % (0.0-1.0); EOS # 0.2 10^3/uL (0.0-0.5); EOS % 2.7 % (0.0-3.0); HEMATOCRIT 40.8 % (42.0-52.0); LYMPH # 1.9 10^3/uL (1.5-5.0); LYMPH % 27.1 % (24.0-44.0); MEAN CORPUSCULAR HGB CONC 34.3 g/dl (32.0-36.5); MEAN CORPUSCULAR VOLUME 93.2 fl (80.0-96.0); MONO # 0.7 10^3/uL (0.0-0.8); MONO % 10.6 % (0.0-5.0); NEUTROPHILS # 4.2 10^3/uL (1.5-8.5); NEUTROPHILS % 59.4 % (36.0-66.0); PLATELET COUNT, AUTOMATED 145 10^3/uL (150-450); RED BLOOD COUNT 4.38 10^6/uL (4.30-6.10)
--- NOTE | 2019-01-27 07:14 | REP ---
ABDOMINAL SERIES: Supine and erect view of the abdomen demonstrate no evidence of free air. There is mild air and fecal material scattered throughout a nondilated colon. A few mildly dilated small bowel loops are seen in the mid and left abdomen. Multiple metallic clips are seen in the abdomen. Vascular calcifications are seen in the pelvic. An accompanying view of the chest demonstrates no acute infiltrate. The heart is normal in size and the mediastinal silhouette is unremarkable. There is a nasogastric tube present with sideport just distal to the gastroesophageal junction. IMPRESSION: There are a few mildly dilated small bowel loops in the left mid abdomen. No evidence of free air. Nasogastric tube seen with sideport just distal to the gastroesophageal junction. Electronically Signed by Lui Jim MD 01/27/2019 09:11 A
[2019-01-27 07:17] LABS: ALBUMIN 3.3 GM/DL (3.2-5.2); ALT/SGPT 27 U/L (12-78); BILIRUBIN,TOTAL 0.9 MG/DL (0.2-1.0); BLOOD UREA NITROGEN 11 MG/DL (7-18); CALCIUM LEVEL 9.4 MG/DL (8.5-10.1); CARBON DIOXIDE LEVEL 24 MEQ/L (21-32); CHLORIDE LEVEL 109 MEQ/L (98-107); CREATININE FOR GFR 0.92 MG/DL (0.70-1.30); GLOMERULAR FILTRATION RATE > 60.0 (>56); GLUCOSE, FASTING 165 MG/DL (70-100); MAGNESIUM LEVEL 1.6 MG/DL (1.8-2.4); POTASSIUM SERUM 4.1 MEQ/L (3.5-5.1); SODIUM LEVEL 140 MEQ/L (136-145); TOTAL PROTEIN 6.1 GM/DL (6.4-8.2)
[2019-01-27] MEDS: D5W/LR 1,000 ML IV SCH ×2 (08:49→21:12)
[2019-01-27] MEDS: ENOXAPARIN 40 MG/0.4 ML SYRINGE (J1650) SC SCH (08:50)
[2019-01-27] MEDS ORDERED: FLUBLOK(EGG FREE)(QUAD)INFLUENZA VACC 0.5ML SYRINGE (90682)18YRS&OLDER IM ONE (09:00)
[2019-01-27] MEDS: LORazepam 2 MG/ML VIAL (J2060) IV PRN (09:02)
[2019-01-27] MEDS: TACROLIMUS 1 MG CAP (J7507) PO SCH ×2 (09:02→21:08)
[2019-01-27] MEDS: PANTOPRAZOLE 40MG INJ (PROTONIX) (C9113) IV SCH (09:02)
[2019-01-27] MEDS: predniSONE 5 MG TAB PO SCH (09:02)
[2019-01-27] MEDS: MYFORTIC 360 MG PO SCH ×2 (09:02→21:08)
[2019-01-27] MEDS: MORPHINE 4 MG/ML 1ML VIAL/SYRINGE (J2270) IV PRN ×3 (09:03→17:42)
[2019-01-27] MEDS ORDERED: MAG SULF 1GM/100ML (MAG RUN) 1 GM in APPROPRIATE DILUENT 1 EA IV ONE (10:00)
--- NOTE | 2019-01-27 10:17 | IPNPDOC ---
Subjective Date Seen The patient was seen on 01/27/19. Subjective Chief Complaint/HPI SBO Events since last encounter + flatus and small BM. Dr. Jameson evaluated patient and advised SBFT Constitutional: Denies: Chills, Fever, Night Sweats Cardiovascular: Denies: Chest Pain, Palpitations, Orthopnea, Paroxysmal Noc. Dyspnea, Lt Headedness Gastrointestinal: Reports: Abdominal Pain, Constipation; Denies: Nausea, Vomiting, Diarrhea Objective Physical Examination General Exam: Positive: Alert, Cooperative, No Acute Distress (laying on his right side resting in the bed when I entered) Eye Exam: Positive: PERRLA, Conjunctiva & lids normal; Negative: Sclera icteric ENT Exam: Positive: Atraumatic, Mucous membr. moist/pink Neck Exam: Positive: Supple; Negative: Lymphadenopathy Chest Exam: Positive: Clear to auscultation, Normal air movement; Negative: Rales, Rhonchi, Wheezing Heart Exam: Positive: Rate Normal, Normal S1, Normal S2; Negative: Murmurs Abdomen Exam: Positive: Normal bowel sounds, Soft, Tenderness, Other Extremity Exam: Positive: Normal pulses; Negative: Edema Skin Exam: Positive: Nl turgor and temperature; Negative: Rash, Breakdown Neuro Exam: Positive: Normal Speech, Strength at 5/5 X4 ext, Normal Tone Psych Exam: Positive: Mental status NL, Mood NL, Memory Intact, Oriented x 3 Assessment /Plan Problems (1) Small bowel obstruction Status: Acute Discussed With: Plant Associate (Dr. Gregorio Jameson), Patient Problem Specific Plan: Monitor Clinically Problem Text: per discussion with Dr. Jameson: SBFT s obstruction; therefore, ADT. If tolerates clears x 24 hrs, advance diet and DC home. Now that the NG tube is in proper position, he is starting to feel a bit better. Dr. Jameson was pretty clear that he thought this was only a partial obstruction at this time. This is a good prognostic indicator that he may be able to resolve his obstruction with conservative measures. (2) History of renal transplant Status: Chronic Response to Treatment: Controlled Discussed With: Patient Problem Specific Plan: Repeat Labs Problem Text: GFR back to baseline As he only has one transplanted kidney at the first signs of difficulty we should consult nephrology. At present things seem to be going ok with is kidney. (3) Diabetes mellitus, type II Status: Chronic Discussed With: Patient Problem Specific Plan: Monitor Clinically, Repeat Tests Problem Text: This is a pretty new dx for him (like less than a month). He is trying to make lifesyle changes, but is also on a low dose basal insulin that is being actively titrated up. He is on ISS here. This makes the most sense, as we don't want him to become hypoglycemic from lack of oral nutrition. Plan/VTE VTE Prophylaxis Ordered?: Yes (Lovenox) Plan IVF: Initiate Diet: Make NPO Activity: Continue Current, Encourage Ambulation Diagnostics: Repeat Labs in AM Anticipated Discharge: Home VS, I&O, 24H, [facility] Vital Signs/I&O Vital Signs Date Time Temp Pulse Resp B/P (MAP) Pulse Ox O2 Delivery O2 Flow Rate FiO2 01/27/19 09:03 18 01/27/19 06:00 97.3 91 140/82 (101) 96 01/26/19 03:00 Room Air I&O- Last 24 Hours up to 6 AM 01/27/19 06:00 Intake Total 1200 ml Output Total 2725 ml Balance -1525 ml Laboratory Data 24H LABS Laboratory Tests 2 01/26/19 11:52: Bedside Glucose (Misc Panel) 200H 01/26/19 16:48: Bedside Glucose (Misc Panel) 175H 01/26/19 23:58: Bedside Glucose (Misc Panel) 129H 01/27/19 05:19: Bedside Glucose (Misc Panel) 174H 01/27/19 06:29: Immature Granulocyte % (Auto) 0.1, White Blood Count 7.0, Red Blood Count 4.38, Hemoglobin 14.0, Hematocrit 40.8L, Mean Corpuscular Volume 93.2, Mean Corpuscular Hemoglobin 32.0, Mean Corpuscular Hemoglobin Concent 34.3, Red Cell Distribution Width 13.4, Platelet Count 145L, Neutrophils (%) (Auto) 59.4, Lymphocytes (%) (Auto) 27.1, Monocytes (%) (Auto) 10.6H, Eosinophils (%) (Auto) 2.7, Basophils (%) (Auto) 0.1, Neutrophils # (Auto) 4.2, Lymphocytes # (Auto) 1.9, Monocytes # (Auto) 0.7, Eosinophils # (Auto) 0.2, Basophils # (Auto) 0.0, Nucleated Red Blood Cells % (auto) 0.0, Anion Gap 7L, Glomerular Filtration Rate > 60.0, Blood Urea Nitrogen 11#, Creatinine 0.92, Sodium Level 140, Potassium Level 4.1, Chloride Level 109H, Carbon Dioxide Level 24, Calcium Level 9.4, Aspartate Amino Transf (AST/SGOT) 16, Alanine Aminotransferase (ALT/SGPT) 27, Alkaline Phosphatase 52, Total Bilirubin 0.9#, Total Protein 6.1L, Albumin 3.3, Magnesium Level 1.6L, Albumin/Globulin Ratio 1.18 CBC/BMP Laboratory Tests 01/27/19 06:29 Red Blood Count 4.38, Mean Corpuscular Volume 93.2, Mean Corpuscular Hemoglobin 32.0, Mean Corpuscular Hemoglobin Concent 34.3, Red Cell Distribution Width 13.4, Neutrophils (%) (Auto) 59.4, Lymphocytes (%) (Auto) 27.1, Monocytes (%) (Auto) 10.6 H, Eosinophils (%) (Auto) 2.7, Basophils (%) (Auto) 0.1, Neutrophils # (Auto) 4.2, Lymphocytes # (Auto) 1.9, Monocytes # (Auto) 0.7, Eosinophils # (Auto) 0.2, Basophils # (Auto) 0.0, Calcium Level 9.4, Aspartate Amino Transf (AST/SGOT) 16, Alanine Aminotransferase (ALT/SGPT) 27, Alkaline Phosphatase 52, Total Bilirubin 0.9 #, Total Protein 6.1 L, Albumin 3.3 Microbiology Microbiology 01/25/19 Blood Culture - Preliminary, Resulted No growth after 24 hours . All specim... 01/25/19 Blood Culture - Preliminary, Resulted No growth after 24 hours . All specim... Sophie Stevens Jan 27, 2019 10:17 Jack Dove M.D. Jan 27, 2019 18:19
[2019-01-27] MEDS ORDERED: E-Z-PAQUE 96% w/w SUSP 176GM BTL As Ordered ONE (11:10)
--- NOTE | 2019-01-27 16:34 | REP ---
ABDOMINAL SERIES: Supine and erect views of the abdomen demonstrate no free air. There is mild air and fecal material scattered throughout the colon. The mildly dilated small bowel loops in the left abdomen are no longer visualized. Multiple metallic clips are seen in the upper abdomen. There are vascular calcifications in the pelvis. An accompanying view of the chest demonstrates no acute infiltrate. Heart is normal in size. Nasogastric tube is again noted with the sideport essentially at the gastroesophageal junction. IMPRESSION: Decreased caliber of mildly dilated small bowel loops in the left mid abdomen. No small bowel dilatation seen radiographically. Nasogastric tube is seen with sideport at the gastroesophageal junction. Electronically Signed by Lui Jim MD 01/28/2019 10:00 A
[2019-01-27 22:00] VITALS: BP 140/76
[2019-01-28] MEDS: HumaLOG INSULIN (NovoLOG) PER UNIT SC SCH ×3 (00:08→12:28)
[2019-01-28 06:00] VITALS: BP 125/81
[2019-01-28] MEDS: D5W/LR 1,000 ML IV SCH (06:00)
[2019-01-28 06:39] LABS: BASO % 0.2 % (0.0-1.0); EOS # 0.2 10^3/uL (0.0-0.5); EOS % 2.6 % (0.0-3.0); HEMATOCRIT 39.7 % (42.0-52.0); HEMOGLOBIN 13.5 g/dl (13.5-17.5); LYMPH % 31.7 % (24.0-44.0); MEAN CORPUSCULAR HEMOGLOBIN 32.6 pg (27.0-33.0); MEAN CORPUSCULAR VOLUME 95.9 fl (80.0-96.0); MONO # 0.7 10^3/uL (0.0-0.8); MONO % 11.8 % (0.0-5.0); NEUTROPHILS # 3.3 10^3/uL (1.5-8.5); NEUTROPHILS % 53.4 % (36.0-66.0); PLATELET COUNT, AUTOMATED 136 10^3/uL (150-450); RED BLOOD COUNT 4.14 10^6/uL (4.30-6.10); WHITE BLOOD COUNT 6.2 10^3/uL (4.0-10.0)
[2019-01-28 07:07] LABS: ALT/SGPT 22 U/L (12-78); BILIRUBIN,TOTAL 1.1 MG/DL (0.2-1.0); BLOOD UREA NITROGEN 13 MG/DL (7-18); CARBON DIOXIDE LEVEL 25 MEQ/L (21-32); CHLORIDE LEVEL 106 MEQ/L (98-107); CREATININE FOR GFR 0.97 MG/DL (0.70-1.30); GLOMERULAR FILTRATION RATE > 60.0 (>56); GLUCOSE, FASTING 155 MG/DL (70-100); MAGNESIUM LEVEL 1.5 MG/DL (1.8-2.4); POTASSIUM SERUM 3.9 MEQ/L (3.5-5.1); SODIUM LEVEL 137 MEQ/L (136-145); TOTAL PROTEIN 5.9 GM/DL (6.4-8.2)
[2019-01-28] MEDS: predniSONE 5 MG TAB PO SCH (08:23)
[2019-01-28] MEDS: PANTOPRAZOLE 40MG INJ (PROTONIX) (C9113) IV SCH (08:23)
[2019-01-28] MEDS: ENOXAPARIN 40 MG/0.4 ML SYRINGE (J1650) SC SCH (08:23)
[2019-01-28] MEDS: MYFORTIC 360 MG PO SCH (08:23)
[2019-01-28] MEDS: TACROLIMUS 1 MG CAP (J7507) PO SCH (08:23)
--- NOTE | 2019-01-28 09:54 | REP ---
Small bowel follow-through The procedure was performed under the direct supervision of Dr. Jim. The images were reviewed with Dr. Jim. Liquid barium was administered and the barium column was followed through the small bowel to the level of the terminal ileum. Small bowel transit time is approximately three and half hours. In the distal ileum there is a zone of transition approximately 8 cm from the ileocecal valve. There is dilatation of the distal ileum proximally to this. The jejunum is normal in caliber. There is no obvious neoplastic lesion. Impression: In the distal ileum there is a zone of transition of caliber approximately 8 cm from the ileocecal valve. There is dilatation of the distal ileum proximal to this, the terminal ileum is normal in caliber. The jejunum is normal in caliber. There is no obvious neoplastic lesion. 3.5 minutes of fluoro time was utilized for this procedure. Electronically Signed by DEVAN Crowell 01/27/2019 04:31 P Electronically Signed by Lui Jim MD 01/28/2019 09:44 A
[2019-01-28] MEDS ORDERED: MAG SULF 1GM/100ML (MAG RUN) 1 GM in APPROPRIATE DILUENT 1 EA IV ONE (11:00)
--- NOTE | 2019-01-28 12:08 | IPN ---
DATE: 01/28/2019 I saw the patient after his upper GI yesterday and there is flow going through and he is not significantly uncomfortable. Thus we will discontinue (DC) his nasogastric tube (NG) tube, start him on a clear liquid diet and we will see how he does overnight. Essentially, he had his diet advanced overnight at some point and has had some crampy abdominal pain but he is still having flatus and bowel movements and otherwise not any nausea or vomiting. At this point, I do feel that when we have our final results of his upper GI that just came back earlier today, it states that there is some amount of transition in the right lower quadrant. There probably is an area that is slightly narrowed but he only has a partial obstruction and it is reasonable to see if he will be able to tolerate some clears and a low-residue diet and see if he can be discharged to home and I would recommend that we continue him on diet if he tolerates this, then he can be discharged home either after lunch today or even if he is feeling uncomfortable or has ongoing discomfort, that we can keep him overnight and then plan on discharge tomorrow. He should be followed up as an outpatient and I would be glad to re-evaluate him. Or he can followup with his colorectal surgeon in [place] for additional recommendations. He will contact our office if he would like to be evaluated her seen.
--- NOTE | 2019-01-28 12:12 | IPN ---
DATE: 01/27/2019 The patient seems to be doing well today, has had some significant flatus, bowel movement as well, but still has some pain on the right lower quadrant and thus, given his discomfort, I do feel that it is reasonable to get a small-bowel follow-through on him today. If there is any continued obstruction, then he may need operative intervention, although with his previous surgical intervention and difficulty with adhesions I anticipate he may need an open operative intervention if he goes that way, although clinically he is not really distended. He is soft. He is nontender except for that right side and even then that is much better than it was yesterday and thus, at this point will have him undergo a small-bowel follow-through and depending on the results of this we will plan on progressing his diet if she shows flow through into the colon.
--- NOTE | 2019-01-29 08:11 | DSES ---
DATE OF ADMISSION: 01/26/2019 DATE OF DISCHARGE: 01/28/2019 BRIEF HISTORY AND PHYSICAL: The patient is a 58-year-old patient with previous abdominal surgery requiring colostomy tube, he has had bilateral nephrectomies for polycystic kidney disease and renal transplant in 2006 who presented to the emergency room with increased abdominal pain, nausea, vomiting for 2 days with no fever or chills. Past medical history is significant for polycystic kidney disease status post removal of both kidneys and 2003 renal transplant on the left in 2006, insulin-dependent diabetes, history of diverticulitis, hypertension, gout, history of colectomy and colostomy with reanastomosis. PERTINENT LABS ON ADMISSION: White count 10.6, hemoglobin 14.3, platelets 174,000. Sodium 140, potassium 4.4, BUN 28, creatinine 1.25, glucose 171. CT of the abdomen and pelvis showed small bowel obstruction with induration and trace of fluid associated with supply mesentery in the right abdomen and the definite point of transition obstruction is not identified, but suspected on the right. Faint gallstone in the gallbladder neck, mild distension of the common bile duct with normal tapering to the ampulla, mid sigmoid anastomoses with minimal diverticulosis, no diverticulitis. HOSPITAL COURSE: 1. The patient was admitted for small-bowel obstruction, made n.p.o., and an NG tube placed and IV fluids initiated. Dr. Jameson from general surgery saw the patient in consultation and recommended a small bowel follow-through which although it did show some slow transit and narrowing, did eventually show passage of barium through the colon. He is eating with normal bowel movements everyday. He does continue to have some right lower abdominal pain after eating some larger meals last night and this morning, but no nausea or vomiting. He did have a bowel movement this morning. He is felt stable for discharge home and the recommendation is that he have small low fiber meals for now and increase his liquids and monitor for increased pain or nausea or vomiting to suggest recurrent obstruction in which case he may require a surgical lysis of adhesions; however, at this point the plan would be to send him home with a trial of feeding. 2. History of renal transplant. Renal function has returned to baseline with IV fluid resuscitation. I would hold his lisinopril for now and restart as an outpatient if needed. 3. Hypomagnesemia. He did get some IV magnesium during his hospitalization. I will hold off on further oral magnesium as an outpatient, but his levels can be retested as an outpatient to determine if he needed some further magnesium. 4. Diabetes mellitus type 2. He was recently started on long-acting insulin as an outpatient and he will go back on his usual dose of that at discharge. DISPOSITION: He is stable for discharge home. Followup with Dr. Mortensen next week. Diet low fiber. Activity as tolerated. MEDICATIONS: - allopurinol 300 mg daily - aspirin 81 mg three times a week - diphenhydramine at bedtime as needed for sleep - finasteride 5 mg daily - Basaglar 12 units at bedtime - Myfortic 360 mg twice a day - prednisone 5 mg daily - tacrolimus 3 mg twice a day DISCHARGE DIAGNOSES: 1. Small bowel obstruction secondary to adhesions. 2. History of renal transplant. 3. Hypomagnesemia. 4. Acute kidney insufficiency. 5. Diabetes mellitus type 2.
== END 2019-01-28 14:07 | disposition home or self-care (01) | DRG 247 ==
LOC: M ED 23:04 → M ED INP 01-26 02:26 → M MSPAV 01-26 04:30
PROVIDERS: ADMIT Internal Medicine; ATTEND Family Medicine
DX: K56.51 Intestinal adhesions [bands], with partial obstruction (principal); Q61.3 Polycystic kidney, unspecified; E83.42 Hypomagnesemia; Z94.0 Kidney transplant status; E11.9 Type 2 diabetes mellitus without complications; I10 Essential (primary) hypertension; M10.9 Gout, unspecified; Z79.899 Other long term (current) drug therapy; Z79.82 Long term (current) use of aspirin; Z79.4 Long term (current) use of insulin; Z79.52 Long term (current) use of systemic steroids; Z88.2 Allergy status to sulfonamides; K57.30 Diverticulosis of large intestine without perforation or abscess without bleeding

== ENCOUNTER → 2019-07-09 | Outpatient (REF) | payer BC ==
[~2019-07-09] MED LIST changes: +BASA100I SC; +LISI-542 PO; +TACR1CAP3 PO; +TACR5CAP PO; +ZZZQ50LI PO
== END ==
LOC: M SFHCPLAZ 08:10
PROVIDERS: ATTEND Family Medicine
DX: Z53.9 Procedure and treatment not carried out, unspecified reason (principal)

== ENCOUNTER → 2019-10-31 | Outpatient (REF) | payer BC ==
[~2019-10-31] MED LIST changes: +PROG1CAP11 PO; -PROG1CAP2 PO; -TACR5CAP PO; +[UNRECOGNIZED DRUG - CODE] PO
[2019-10-31 19:46] LABS: MALB URINE SIEMENS 9.6 MG/L; MAU/CREAT RATIO 5.7 MCG/MG (0.0-30.0)
== END ==
LOC: M SFHCPLAZ 14:36
PROVIDERS: ATTEND Family Medicine
DX: E11.9 Type 2 diabetes mellitus without complications (principal)

== ENCOUNTER → 2020-07-14 | Outpatient (CLI) | payer BC ==
[~2020-07-14] MED LIST changes: -LISI-542 PO; +LISI-898 PO; +LISI10TA22 PO; -LISI10TA4 PO
[2020-07-14 11:41] LABS: APPEARANCE, URINE CLEAR (CLEAR); BACTERIA, URINE AUTO NEGATIVE (NEGATIVE); BILIRUBIN, URINE AUTO NEGATIVE (NEGATIVE); BLOOD, URINE BLOOD NEGATIVE (NEGATIVE); COLOR, URINE YELLOW (YELLOW); GLUCOSE, URINE (UA) AUTO NEGATIVE (NEGATIVE); KETONE, URINE AUTO NEGATIVE (NEGATIVE); LEUKOCYTE ESTERASE, URINE AUTO NEGATIVE (NEGATIVE); NITRITE, URINE AUTO NEGATIVE (NEGATIVE); PROTEIN, URINE AUTO NEGATIVE (NEGATIVE); RBC, URINE AUTO 0 /HPF (0-3); SPECIFIC GRAVITY URINE AUTO 1.016 (1.002-1.035); SQUAMOUS EPITHELIAL CELL UR AU 0 /HPF (0-6); UROBILINOGEN, URINE AUTO 0.2 mg/dL (0.0-2.0); WBC, URINE AUTO 1 /HPF (0-3)
[2020-07-14 12:24] LABS: BASO % 0.2 % (0.0-1.0); EOS # 0.1 10^3/uL (0.0-0.5); EOS % 1.2 % (0.0-3.0); HEMATOCRIT 46.8 % (42.0-52.0); HEMOGLOBIN 15.6 g/dl (13.5-17.5); LYMPH # 2.3 10^3/uL (1.5-5.0); LYMPH % 27.5 % (24.0-44.0); MEAN CORPUSCULAR HEMOGLOBIN 32.2 pg (27.0-33.0); MEAN CORPUSCULAR HGB CONC 33.3 g/dl (32.0-36.5); MEAN CORPUSCULAR VOLUME 96.7 fl (80.0-96.0); MONO # 0.8 10^3/uL (0.0-0.8); MONO % 10.3 % (2.0-8.0); NEUTROPHILS % 60.4 % (36.0-66.0); PLATELET COUNT, AUTOMATED 167 10^3/uL (150-450); RED BLOOD COUNT 4.84 10^6/uL (4.30-6.10); WHITE BLOOD COUNT 8.2 10^3/uL (4.0-10.0)
[2020-07-14 12:27] LABS: ALBUMIN 4.2 GM/DL (3.2-5.2); ALT/SGPT 33 U/L (12-78); BILIRUBIN,DIRECT 0.2 MG/DL (0.0-0.2); BILIRUBIN,TOTAL 0.9 MG/DL (0.2-1.0); BLOOD UREA NITROGEN 30 MG/DL (7-18); CARBON DIOXIDE LEVEL 27 MEQ/L (21-32); CHLORIDE LEVEL 107 MEQ/L (98-107); CREATININE FOR GFR 1.21 MG/DL (0.70-1.30); GLOMERULAR FILTRATION RATE > 60.0 (>56); GLUCOSE, FASTING 154 MG/DL (70-100); MAGNESIUM LEVEL 1.8 MG/DL (1.8-2.4); PHOSPHORUS LEVEL 2.3 MG/DL (2.5-4.9); POTASSIUM SERUM 4.7 MEQ/L (3.5-5.1); SODIUM LEVEL 137 MEQ/L (136-145); TOTAL PROTEIN 7.3 GM/DL (6.4-8.2)
[2020-07-14 12:45] LABS: CREATININE,RANDOM URINE 87.4 MG/DL; TOTAL PROTEIN,RANDOM URINE 11.1 MG/DL (0.0-12.0)
== END ==
LOC: M WUC 09:25
PROVIDERS: ATTEND Internal Medicine Nephrology
DX: Z94.0 Kidney transplant status (principal); N18.5 Chronic kidney disease, stage 5; D84.9 Immunodeficiency, unspecified; Z79.899 Other long term (current) drug therapy

== ENCOUNTER → 2020-07-29 | Outpatient (REF) | payer BC | LOC: M SFHCPLAZ 13:58 | PROVIDERS: ATTEND Family Medicine | DX: E11.9 Type 2 diabetes mellitus without complications (principal) ==

== ENCOUNTER → 2020-08-26 | Outpatient (CLI) | payer BC ==
[2020-08-26 12:24] LABS: HEMOGLOBIN A1c 6.7 %
[2020-08-26 12:39] LABS: MALB URINE SIEMENS 11.2 MG/L; MAU/CREAT RATIO 9.1 MCG/MG (0.0-30.0)
== END ==
LOC: M WUC 09:09
PROVIDERS: ATTEND Student in an Organized Health Care Education/Training Program
DX: E11.9 Type 2 diabetes mellitus without complications (principal)

== ENCOUNTER 2020-10-02 10:53 | Observation (INO) | payer BC ==
[~2020-10-02] VITALS: Ht 188 cm; Wt 103.8 kg
[2020-10-02] MEDS ORDERED: CEPH500C PO (11:13)
[2020-10-02] MEDS ORDERED: LISI-898 PO (11:13)
[2020-10-02] MEDS ORDERED: OXYC5CAP56 PO (11:13)
[2020-10-02] MEDS ORDERED: ASPIRIN 81 MG CHEW TABLET PO ONE (11:15)
[2020-10-02] MEDS ORDERED: NITROGLYCERIN 0.4 MG SUBL TABLET SL PRN (11:15)
[2020-10-02 11:26] LABS: BASO % 0.1 % (0.0-1.0); EOS # 0.2 10^3/uL (0.0-0.5); EOS % 1.6 % (0.0-3.0); HEMATOCRIT 47.6 % (42.0-52.0); HEMOGLOBIN 16.1 g/dl (13.5-17.5); LYMPH # 2.2 10^3/uL (1.5-5.0); LYMPH % 21.8 % (24.0-44.0); MEAN CORPUSCULAR HEMOGLOBIN 32.5 pg (27.0-33.0); MEAN CORPUSCULAR HGB CONC 33.8 g/dl (32.0-36.5); MEAN CORPUSCULAR VOLUME 96.2 fl (80.0-96.0); MONO # 0.8 10^3/uL (0.0-0.8); NEUTROPHILS # 6.9 10^3/uL (1.5-8.5); NEUTROPHILS % 68.1 % (36.0-66.0); PLATELET COUNT, AUTOMATED 167 10^3/uL (150-450); RED BLOOD COUNT 4.95 10^6/uL (4.30-6.10); WHITE BLOOD COUNT 10.2 10^3/uL (4.0-10.0)
--- NOTE | 2020-10-02 11:37 | REP ---
INDICATION: CHEST PAIN COMPARISON: 01/27/2019 TECHNIQUE: Portable AP view of the chest FINDINGS: The mediastinum and cardiac silhouette are stable and within normal limits for portable technique. The lung luna are clear without acute consolidation, effusion, or pneumothorax. Skeletal structures are intact. IMPRESSION: No acute cardiopulmonary process appreciated. <Electronically signed by Jorge Ellis > 10/02/20 1418
[2020-10-02] MEDS ORDERED: NS 500 ML IV ONE ×2 (11:45→12:45)
[2020-10-02 12:03] LABS: ALBUMIN 3.7 GM/DL (3.2-5.2); ALT/SGPT 25 U/L (12-78); BILIRUBIN,DIRECT 0.3 MG/DL (0.0-0.2); BILIRUBIN,TOTAL 1.1 MG/DL (0.2-1.0); BLOOD UREA NITROGEN 31 MG/DL (7-18); CARBON DIOXIDE LEVEL 20 MEQ/L (21-32); CHLORIDE LEVEL 106 MEQ/L (98-107); CK-MB VALUE MASS 2.4 NG/ML (<3.6); CPK CREATINE PHOSPHOKINASE 86 U/L (39-308); CREATININE FOR GFR 1.57 MG/DL (0.70-1.30); GLOMERULAR FILTRATION RATE 48.4 (>56); GLUCOSE, FASTING 248 MG/DL (70-100); LIPASE 336 U/L (73-393); MB/CK RELATIVE INDEX 2.79 (< OR =4); NT-PRO BNP 1242 PG/ML (<125); POTASSIUM SERUM 5.3 MEQ/L (3.5-5.1); SODIUM LEVEL 136 MEQ/L (136-145); TOTAL PROTEIN 7.2 GM/DL (6.4-8.2); TROPONIN I < 0.02 NG/ML (< 0.10)
[2020-10-02 13:04] LABS: VENOUS BASE EXCESS -2.6 (-2.0-2.0); VENOUS O2 SATURATION 54.9 % (60.0-80.0); VENOUS PARTIAL PRESSURE CO2 48.1 mmHg (38.0-50.0); VENOUS PARTIAL PRESSURE O2 28.3 mmHg (30.0-50.0); VENOUS PH 7.316 UNITS (7.330-7.430); VENOUS STANDARD HCO3 21.3 MEQ/L; VENOUS TOTAL CO2 25.5 MEQ/L (24.0-28.0)
--- NOTE | 2020-10-02 15:25 | ECGEPIP ---
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
--- NOTE | 2020-10-02 15:29 | ECGEPIP ---
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
[2020-10-02] MEDS ORDERED: NS 1,000 ML IV ONE (16:40)
[2020-10-02 16:58] LABS: MAGNESIUM LEVEL 1.7 MG/DL (1.8-2.4)
[2020-10-02 17:09] LABS: VENOUS HCO3 22.5 MEQ/L (23.0-27.0); VENOUS O2 SATURATION 77.7 % (60.0-80.0); VENOUS PARTIAL PRESSURE CO2 41.7 mmHg (38.0-50.0); VENOUS PARTIAL PRESSURE O2 41.2 mmHg (30.0-50.0); VENOUS STANDARD HCO3 21.5 MEQ/L; VENOUS TOTAL CO2 23.8 MEQ/L (24.0-28.0)
[2020-10-02 17:51] LABS: CK-MB VALUE MASS 1.8 NG/ML (<3.6); MB/CK RELATIVE INDEX 3.46 (< OR =4); TROPONIN I 0.02 NG/ML (< 0.10)
[2020-10-02] MEDS ORDERED: CALCIUM GLUCONATE 1,000 MG in D5W MINI-BAG PLUS 100 ML IV ONE (18:00)
[2020-10-02] MEDS ORDERED: SOD POLYSTYRENE SULFONATE SUSP 15 GM/60 ML UD PO ONE (18:00)
--- NOTE | 2020-10-02 18:11 | REP ---
INDICATION: renal failure COMPARISON: 03/26/2008 TECHNIQUE: Real time pozo scale ultrasound examination using curved array transducer. FINDINGS: Patient is noted to be status post bilateral nephrectomy with right lower quadrant transplant. The bilateral renal fossae are normal and without abnormal fluid or mass. Transplant kidney in the right lower quadrant measures 12.9 x 7.4 x 6.0 cm and is normal in contour, size, echogenicity, and reniform shape without hydronephrosis, obvious nephrolithiasis, cystic or renal mass lesion. Bladder is unremarkable. IMPRESSION: 1. Normal appearing transplant kidney in the right lower quadrant. <Electronically signed by Jorge Ellis > 10/02/20 [id number]
[2020-10-02 18:45] VITALS: BP 121/80
[2020-10-02] MEDS: NS 1,000 ML IV SCH (18:47)
--- NOTE | 2020-10-02 18:54 | HPE ---
HISTORY AND PHYSICAL DATE OF ADMISSION: 10/02/2020 CHIEF COMPLAINT: Chest pain, shortness of breath. HISTORY OF PRESENT ILLNESS: This is a 60-year-old male with a history polycystic kidney disease, status post renal transplant in 2006, currently on steroids, Prograf and mycophenolate, diverticulitis, hypertension and gout, presented to the emergency room with acute onset of chest pain substernally, feeling like his chest is being crushed accompanied with some shortness of breath while taking the trash. The patient denied any fever, chills or cough. He did complain of feeling sweaty and slight tremulousness. Chest pain lasted for about 1-1/2 hours, better when he sat down with some nausea but without vomiting, abdominal pain. The patient's bilateral arms felt very shaky and numb. No medications were taken, no nitroglycerin, no aspirin. The patient was brought in by his son to the emergency room for evaluation. For the past week he has been having headache and feeling very tired. He recently had a Mohs procedure on his scalp but denied any pain. He was sleeping most of the day, 23 out of 24 hours for the past few days. He is currently moving to [place] and his son has been helping him. He otherwise denies decrease in oral intake or loss of fluid such as diarrhea, dysuria, urgency, frequency, flank pain. The patient denies any vomiting at home. He ate a normal breakfast this morning with orange juice and his sugars were fine. For the past two months, he has been having episodes of hypoglycemia, usually eats a candy bar to come back to normal. In the ER, he was noted to have normal EKG without acute ischemic changes, incomplete right bundle branch block with ventricular rate of 112. Troponin was negative. Chest x-ray had no acute cardiopulmonary process. The patient's glucose was normal at 248. Magnesium was low at 1.7. He had acute kidney injury with a creatinine of 1.57 and BNP level of 1242. Chest x-ray had no acute CHF, pulmonary edema or pneumonia. Hospitalist was asked to admit the patient for acute kidney injury, hyperkalemia and was found to be hypotensive with systolic pressure of 96/52 but responded to one liter of normal saline IV bolus increasing up to 120/80. PAST MEDICAL HISTORY: 1. Polycystic kidney disease. 2. Diverticulitis. 3. Hypertension. 4. Gout. PAST SURGICAL HISTORY: 1. Ear tubes. 2. 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 3. AV fistula in both arms. 4. Kidney transplant for polycystic kidney disease. 5. Stent in his left arm fistula. FAMILY HISTORY: Polycystic kidney disease in his father. 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 Lives with a significant other, nonsmoker, nondrinker. ALLERGIES: RABBIT EPITHELIUM AND SULFA DRUGS. HOME MEDICATIONS: 1. Allopurinol 300 daily. 2. Aspirin 81 mg once a week. 3. Cephalexin 500 b.i.d. 4. Finasteride 5 mg daily. 5. Lisinopril 5 mg daily. 6. Prednisone 5 mg daily. 7. Tacrolimus 3 mg b.i.d. 8. Diphenhydramine 25 mg q.h.s. 9. Basaglar insulin 20 units q.h.s. 10. Myfortic 360 mg b.i.d. 11. Oxycodone 5 mg q.i.d. as needed for pain. REVIEW OF SYSTEMS: As per HPI, 12-point system otherwise negative. PHYSICAL EXAMINATION: VITAL SIGNS: Temperature 97.4, pulse 88, sinus, respiratory rate 18, blood pressure 118/80, 97% on room air. GENERAL: The patient had recent postop Mohs surgery in his scalp on the left occiput. No JVD, no thyromegaly, no pallor, icterus, jaundice. Moist mucous membranes. No conversational dyspnea, no cervical lymphadenopathy, thyromegaly or carotid bruit. LUNGS: Clear to auscultation, no wheezing, rales or rhonchi. HEART: S1, S2, sinus rhythm. ABDOMEN: Obese, soft, nontender, nondistended. Positive bowel sounds. EXTREMITIES: No cyanosis or clubbing. EKG: Sinus rhythm, ventricular rate of 112, QRS 118, QT interval 328 and complete right bundle branch block. LABORATORY DATA: White count 10.2, hemoglobin 16, hematocrit 47, platelet count 167. Sodium 136, potassium 5.3, chloride 106, bicarb 20, BUN 31, creatinine 1.57. Glucose of 248. Lactic acid of 144, calcium of 10, magnesium of 1.7. T bili 1.1, direct bili 0.3. BNP 1242. Troponin less than 0.02. Albumin of 3.7. Total CK 86, MB fraction 2.4. AST 21, ALT 25. IMAGING STUDIES: Chest x-ray: No acute cardiopulmonary process. Renal ultrasound is still pending. ASSESSMENT AND PLAN: A 60-year-old with renal transplant due to polycystic kidney disease, history of diverticulitis, hypertension and gout, presented to the emergency room with acute onset of chest pain while taking out the trash. IMPRESSION: 1. Chest pain, rule out acute coronary syndrome. The patient will be admitted to the telemetry unit. Cardiac markers will be cycled q.6 hourly, repeat 12-lead EKG for current symptoms, trial of GI cocktail and PPI with Carafate. The patient will need a stress test as outpatient even if he has negative cardiac troponins overnight and chest pain has resolved. 2. Renal allograft due to polycystic kidney disease. Resume home medications. 3. Acute kidney injury with metabolic acidosis, hyperkalemia. IV fluids for now. Hold patient's lisinopril for blood pressure. May use IV fluids for now due to low blood pressure of 96/50 with a mean arterial pressure as low as 67 but currently with a mean arterial pressure of 93 to 102. Repeat metabolic panel this evening. If worsens, consult nephrology. Monitor for respiratory distress, Kayexalate x1 dose, calcium gluconate for hyperkalemia. If patient has persistent metabolic acidosis, may benefit from telemetry monitoring and bicarbonate drip. Strict Is and Os, daily weights for now. 4. Abnormal liver function tests. The patient denies any complaints at this time. We will continue to monitor liver function tests with repeat levels in the morning. 5. Code Status: FULL CODE. 6. Diet: Will be 2 gm sodium diet, renal diet. 7. DVT prophylaxis with compression stockings. MTDD
[2020-10-02] MEDS ORDERED: LEVEMIR (INSULIN DETEMIR) 1 UNITS/0.01ML SC SCH (21:00)
[2020-10-02] MEDS: CEPHALEXIN 500 MG CAP PO SCH (21:30)
[2020-10-02] MEDS: TACROLIMUS 1 MG CAP (J7507) PO SCH (21:30)
[2020-10-02 22:00] VITALS: BP 106/64
[2020-10-02 22:40] LABS: BLOOD UREA NITROGEN 29 MG/DL (7-18); CALCIUM LEVEL 9.4 MG/DL (8.5-10.1); CARBON DIOXIDE LEVEL 20 MEQ/L (21-32); CHLORIDE LEVEL 110 MEQ/L (98-107); CK-MB VALUE MASS 1.4 NG/ML (<3.6); CPK CREATINE PHOSPHOKINASE 65 U/L (39-308); CREATININE FOR GFR 1.22 MG/DL (0.70-1.30); GLOMERULAR FILTRATION RATE > 60.0 (>56); GLUCOSE, FASTING 153 MG/DL (70-100); MB/CK RELATIVE INDEX 2.15 (< OR =4); POTASSIUM SERUM 4.7 MEQ/L (3.5-5.1); SODIUM LEVEL 138 MEQ/L (136-145); TROPONIN I 0.03 NG/ML (< 0.10)
[2020-10-03 06:00] VITALS: BP 108/66
[2020-10-03] MEDS: NS 1,000 ML IV SCH (06:41)
[2020-10-03] MEDS ORDERED: NORV5TAB PO (07:13)
[2020-10-03] MEDS ORDERED: NS 1,000 ML IV ONE (07:30)
[2020-10-03] MEDS: CEPHALEXIN 500 MG CAP PO SCH (07:38)
[2020-10-03] MEDS: TACROLIMUS 1 MG CAP (J7507) PO SCH (07:39)
[2020-10-03] MEDS ORDERED: SODIUM BICARBONATE 325 MG TAB PO ONE (08:00)
[2020-10-03] MEDS ORDERED: FINASTERIDE 5 MG TAB PO SCH (09:00)
[2020-10-03] MEDS ORDERED: predniSONE 5 MG TAB PO SCH (09:00)
[2020-10-03] MEDS ORDERED: allopurinoL 300 MG TAB PO SCH (09:00)
[2020-10-03 09:20] VITALS: BP 111/73
--- NOTE | 2020-10-03 11:24 | DSES ---
DISCHARGE SUMMARY DATE OF ADMISSION: 10/02/2020 DATE OF DISCHARGE: 10/03/2020 PRIMARY DISCHARGE DIAGNOSES: 1. Acute kidney injury in the setting of kidney transplant due to polycystic kidney disease. 2. Metabolic acidosis. 3. Hyperkalemia. 4. Abnormal liver function tests. 5. Chest pain, ruled out acute coronary syndrome. 6. Type 2 diabetes. DISCHARGE MEDICATIONS: No changes in his medications have been made aside from holding his lisinopril due to acute kidney injury and hyperkalemia. 1. Norvasc 5 mg daily. 2. Allopurinol 300 daily. 3. Aspirin 81. 4. Cephalexin 500 b.i.d. 5. Diphenhydramine 50 q.h.s. as needed. 6. Finasteride 5 daily. 7. Lantus insulin 20 units q.h.s. 8. Mycophenolate 360 b.i.d. 9. Oxycodone 5 mg q.i.d. 10. Prednisone 5 daily. 11. Tacrolimus 3 mg b.i.d. DISCHARGE INSTRUCTIONS: Primary care physician appointment within five days of discharge, bar back in one week. The patient is to hold his Norvasc if his systolic blood pressure is less than 130. The patient is hold off on lisinopril until repeat metabolic panel is done as an outpatient to monitor for hyperkalemia and renal failure. HOSPITAL COURSE: This is a 60-year-old male admitted on 10/02/2020 with complaints of chest pain while taking out the trash. The patient was moving for the past week, complains of headache intermittently at home and had not taken any nonsteroidal anti-inflammatories. He denies any dehydration, has been drinking adequately at home. In the ER, he was found to have normal EKG, sinus rhythm without acute ST-T wave changes, no cardiac markers but was found to be hyperkalemic with metabolic acidosis and acute kidney injury and blood pressure of 90 with mean arterial pressure between 75-85. The patient was hydrated with two liters of normal saline boluses with good response, increasing systolic pressure to 106-120 with a mean arterial pressure of 89-94. Overnight, he was given IV fluids with resultant improvement in creatinine to 1.22. On discharge, he was given one dose of Kayexalate for 5.3 potassium with improvement to 4.7 on discharge. He remained with slight metabolic acidosis of 20 and was given one tablet of sodium bicarbonate. His troponins were negative. The patient's lisinopril was held due to low blood pressure of systolic 90s as well as acute kidney injury. Per Dr. Michel, the patient may be resumed back on all his home medications. He has not required any blood pressure medications and this has been changed to Norvasc, held the Lisinopril for now since the kidneys are just recovering. Renal ultrasound was unchanged. Chest x-ray had no pulmonary edema. The patient is discharged in stable condition to follow up with primary care physician for repeat basic metabolic panel as an outpatient. PHYSICAL EXAMINATION ON DISCHARGE: Vital signs: Temperature 97.6, pulse 81, respiratory rate 16, blood pressure 109/66, 98% on room air. General: The patient is awake, alert, oriented to person, place and time. No JVD, thyromegaly or use of respiratory accessory muscles. Lungs: Clear to auscultation. No wheezing, rales or rhonchi. Heart: S1, S2, sinus rhythm. Abdomen: Soft, nontender, nondistended. Positive bowel sounds x4 quadrants. Extremities: No cyanosis, clubbing or pitting edema. LABORATORY DATA: On discharge, sodium 138, potassium 4.7, chloride 110, bicarb 20, BUN 29, creatinine 1.22, glucose of 153, calcium of 9.4, troponin 0.03. CBC: White count 10, hemoglobin 16, hematocrit 47, platelet count of 167. Blood cultures: No growth. Chest x-ray: No acute cardiopulmonary process. Renal ultrasound: No hydronephrosis. Normal appearing transplant kidney in the right lower quadrant. Time spent on discharge: 30 minutes.
[2020-10-05 10:45] LABS: CORTISOL BASELINE 15.1 UG/DL (4.3-22.4)
== END 2020-10-03 09:49 | disposition home or self-care (01) ==
LOC: M ED 10:53 → M ED INP 10:54 → ENRESERV 17:49 → M MSPAV 18:40
PROVIDERS: ADMIT General Practice; ATTEND General Practice
DX: N17.9 Acute kidney failure, unspecified (principal); Z94.0 Kidney transplant status; Q61.3 Polycystic kidney, unspecified; E87.2 Acidosis; E87.5 Hyperkalemia; R94.5 Abnormal results of liver function studies; R07.9 Chest pain, unspecified; E11.21 Type 2 diabetes mellitus with diabetic nephropathy; Z79.82 Long term (current) use of aspirin; Z79.4 Long term (current) use of insulin; Z79.52 Long term (current) use of systemic steroids; Z79.899 Other long term (current) drug therapy
CPT/HCPCS: 36415; 36600; 71045; 76775; 80048; 80076; 81001; 82533; 82550; 82553; 82803; 83605; 83690; 83735; 83880; 84484; 85025; 87040; 93005; 93041; 96361; 96374; 96375; 96376; 99285; J0610; J7507; J7512; U0002

== ENCOUNTER → 2020-10-07 | Outpatient (CLI) | payer BC ==
[~2020-10-07] MED LIST changes: +CEPH500C PO; +NORV5TAB PO; +OXYC5CAP56 PO
[2020-10-07 16:32] LABS: BLOOD UREA NITROGEN 26 MG/DL (7-18); CALCIUM LEVEL 10.2 MG/DL (8.5-10.1); CARBON DIOXIDE LEVEL 24 MEQ/L (21-32); CHLORIDE LEVEL 105 MEQ/L (98-107); CREATININE FOR GFR 1.08 MG/DL (0.70-1.30); GLOMERULAR FILTRATION RATE > 60.0 (>56); GLUCOSE, FASTING 118 MG/DL (70-100); POTASSIUM SERUM 4.6 MEQ/L (3.5-5.1); SODIUM LEVEL 137 MEQ/L (136-145)
== END ==
LOC: M WUC 11:38
PROVIDERS: ATTEND Student in an Organized Health Care Education/Training Program
DX: N17.9 Acute kidney failure, unspecified (principal)

== ENCOUNTER → 2020-10-08 | Outpatient (REF) | payer BC | LOC: M SFHCPLAZ 11:25 | PROVIDERS: ATTEND Family Medicine | DX: N17.9 Acute kidney failure, unspecified (principal); R07.9 Chest pain, unspecified; R06.02 Shortness of breath; E87.5 Hyperkalemia ==